=== PATIENT | female | born 1970 | race American Indian/Alaskan Native ===

== ENCOUNTER 2016-11-07 12:50 | Outpatient (CLI) | payer BC ==
--- NOTE | 2016-11-07 13:24 | Mammography Report ---
Bilateral mammogram: No previous studies available. CAD study and Findings: Heterogeneous breast parenchyma bilaterally. No mass or microcalcification. Benign axillary nodes. Impression: Benign findings. Followup recommended. BI-RADS CATEGORY: 2 = Benign ACR BI-RADS MAMMOGRAPHIC CODES: 0 = Needs additional imaging evaluation; 1 = Negative; 2 = Benign; 3 = Probably benign; 4 = Suspicious; 5 = Malignant; 6 = Known biopsy-proven malignancy COMMENT: 1. Dense breast tissue, i.e., adenosis, fibrocystic changes, etc., may obscure an underlying neoplasm. 2. Approximately 10% of cancers are not detected with mammography. 3. A negative mammography report should not delay biopsy if a clinically suspicious mass is present. COMMENT: Patient follow-up letters are generated in [employer].
== END 2016-11-07 12:51 | disposition home or self-care (01) ==
LOC: SPVWC 12:50
PROVIDERS: ATTEND Obstetrics & Gynecology
DX: Z12.31 Encounter for screening mammogram for malignant neoplasm of breast (principal)
CPT/HCPCS: 77067; G0202

== ENCOUNTER 2017-11-25 14:39 | Outpatient (CLI) | payer BC ==
--- NOTE | 2017-11-26 08:32 | Mammography Report ---
BILATERAL MAMMOGRAM: FINDINGS: The breast tissue is heterogeneously dense, which could obscure detection of small masses (approximately 50%-75% glandular). No mass, distortion, suspicious calcification, or skin change is seen. No interval change when compared to prior exam in November 2016. CAD was utilized. IMPRESSION: Negative mammogram. There is no mammographic evidence of malignancy. RECOMMENDATION: Follow-up per ACS guidelines. BI-RADS CATEGORY: 1 = Negative ACR BI-RADS MAMMOGRAPHIC CODES: 0 = Needs additional imaging evaluation; 1 = Negative; 2 = Benign; 3 = Probably benign; 4 = Suspicious; 5 = Malignant; 6 = Known biopsy-proven malignancy COMMENT: 1. Dense breast tissue, i.e., adenosis, fibrocystic changes, etc., may obscure an underlying neoplasm. 2. Approximately 10% of cancers are not detected with mammography. 3. A negative mammography report should not delay biopsy if a clinically suspicious mass is present. COMMENT: Patient follow-up letters are generated in [employer].
--- NOTE | 2017-11-26 09:36 | Ultrasound Report ---
Pelvic ultrasound: Dysfunctional uterine bleeding. Endovaginal and transabdominal imaging is performed. Uterus measures 5.7 x 8.2 x 9.4 cm. It is diffusely inhomogeneous and contains for identifiable masses in the mid and superior portions of the myometrium measuring between 2 cm and 3.8 cm in maximum size. A short segment of endometrium is identified in the superior uterus measuring 6 mm in diameter. The right ovary has a maximum dimension of 4 cm and contains a 2.9 cm cyst. The left ovary has a maximum dimension of 6.4 cm and contains a 4.9 cm cyst. No free fluid identified. Impressions: Enlarged uterus with multiple fibroids. The positioning of the fibroids relative to the suboptimally visualized endometrium are not identified. Bilateral ovarian cysts.
== END 2017-11-25 14:40 | disposition home or self-care (01) ==
LOC: SPVWC 14:39
PROVIDERS: ATTEND Obstetrics & Gynecology
DX: Z12.31 Encounter for screening mammogram for malignant neoplasm of breast (principal); N93.8 Other specified abnormal uterine and vaginal bleeding; N83.201 Unspecified ovarian cyst, right side; N85.2 Hypertrophy of uterus; D25.9 Leiomyoma of uterus, unspecified; N83.202 Unspecified ovarian cyst, left side
CPT/HCPCS: 76830; 76856; 77067

== ENCOUNTER 2018-01-14 12:54 | Outpatient (CLI) | payer BC ==
--- NOTE | 2018-01-14 14:42 | Ultrasound Report ---
TRANSABDOMINAL AND TRANSVAGINAL PELVIC ULTRASOUND: 01/14/18 12:54:00 CLINICAL: Dysfunctional uterine bleeding. FINDINGS: Transabdominal and transvaginal pelvic ultrasound demonstrated an enlarged uterus measuring 9.7 x 5.5 x 6.5 cm. Too numerous to count these fibroids. The dominant fibroid is located anterior intramural in the uterine fundus and measures 3.8 x 3.3 x 4.1 cm. A posterior fundal intramural fibroid measures 2.0 x 1.3 x 2.2 cm. A posterior intramural uterine body fibroid measures 2.2 x 1.9 x 1.9 cm. A lower uterine segment posterior intramural fibroid measures 2.8 x 2.3 x 1.9 cm.The endometrium is normal and measures 2 mm AP thickness. A cyst of the right ovary measures 1.9 x 1.9 x 1.5 cm. The right ovary measures 3.3 x 2.2 x 3.0cm. A cyst of the left ovary measures 4.3 x 3.3 x 3.7 cm. The left ovary measures 5.2 x 3.8 x 4.0 cm. No adnexal mass. No free fluid. Normal urinary bladder. IMPRESSION: 1. Uterine leiomyomata with a dominant 4.1 cm anterior fundal fibroid. 2. Normal endometrium. 3. Bilateral ovarian cysts.
== END 2018-01-14 12:55 | disposition home or self-care (01) ==
LOC: SPVWC 12:54
PROVIDERS: ATTEND Obstetrics & Gynecology
DX: N83.292 Other ovarian cyst, left side (principal); N83.291 Other ovarian cyst, right side; D25.9 Leiomyoma of uterus, unspecified
CPT/HCPCS: 76830; 76856

== ENCOUNTER 2018-08-12 06:28 | Emergency (ER) | payer BC ==
[2018-08-12] MEDS ORDERED: NACL 0.9% 1000 ML 1,000 ML IV ONE (07:12)
[2018-08-12] MEDS ORDERED: IMODIUM PO ONE (07:12)
[2018-08-12] MEDS ORDERED: TORADOL IV ONE (07:12)
[2018-08-12] MEDS ORDERED: ZOFRAN IV ONE (07:12)
--- NOTE | 2018-08-12 07:29 | Emergency Department Report ---
ED Abdominal Pain HPI - General Chief Complaint: Abdominal Pain Stated Complaint: NVD BACK PELVIC PAIN Time Seen by Provider: 08/12/18 06:56 Source: patient Mode of arrival: Ambulatory Limitations: No Limitations - History of Present Illness Initial Comments: 47-year-old female presents to ED with pelvic pain, nausea, vomiting, diarrhea 2 days. Patient states she is currently on her menstrual period, states amount of bleeding is normal, no heavier than usual. However, reports associated vomitng and diarrhea, slightly worse cramping. Patient does report history of uterine fibroids and ovarian cysts. Patient denies fever, urinary symptoms, sick contacts. MD Complaint: abdominal pain -: days(s) (3) Location: suprapubic Radiation: back Migration to: no migration Severity: severe Severity scale (0 -10): 10 Quality: cramping, aching Improves With: nothing Worsens With: nothing Associated Symptoms: nausea, vomiting, diarrhea. denies: fever, dysuria - Related Data LMP (females 10-50): this week Previous Rx's Medication Instructions Recorded Last Taken Type Naproxen [Naprosyn] 500 mg PO BID #20 tablet 08/12/18 Unknown Rx Ondansetron [Zofran Odt] 4 mg PO Q8HR PRN #20 tab.rapdis 08/12/18 Unknown Rx Sulfamethoxazole/Trimethoprim 1 each PO BID 10 Days #6 tablet 08/12/18 Unknown Rx [Bactrim DS TAB] traMADol [Ultram] 50 mg PO Q6HR PRN #7 tablet 08/12/18 Unknown Rx Allergies Allergy/AdvReac Type Severity Reaction Status Date / Time fluconazole Allergy Rash Verified 08/12/18 06:34 ED Review of Systems ROS: Stated complaint: NVD BACK PELVIC PAIN Other details as noted in HPI Comment: All other systems reviewed and negative Constitutional: denies: chills, fever Gastrointestinal: abdominal pain, nausea, vomiting, diarrhea Genitourinary: other (reports vag bleeding) ED Past Medical Hx - Past Medical History Previous Medical History?: Yes - Surgical History Past Surgical History?: Yes Additional Surgical History: fibroid, ovaries cyst, pilonidal remove - Social History Smoking Status: Never Smoker Substance Use Type: None - Medications Home Medications: Home Medications Medication Instructions Recorded Confirmed Last Taken Type Naproxen [Naprosyn] 500 mg PO BID #20 tablet 08/12/18 Unknown Rx Ondansetron [Zofran Odt] 4 mg PO Q8HR PRN #20 tab.rapdis 08/12/18 Unknown Rx Sulfamethoxazole/Trimethoprim 1 each PO BID 10 Days #6 tablet 08/12/18 Unknown Rx [Bactrim DS TAB] traMADol [Ultram] 50 mg PO Q6HR PRN #7 tablet 08/12/18 Unknown Rx ED Physical Exam - General Limitations: No Limitations General appearance: alert, other (appears uncomfortable) - Head Head exam: Present: atraumatic, normocephalic - Eye Eye exam: Present: normal appearance - ENT ENT exam: Present: mucous membranes moist - Neck Neck exam: Present: normal inspection - Respiratory Respiratory exam: Present: normal lung sounds bilaterally. Absent: respiratory distress - Cardiovascular Cardiovascular Exam: Present: normal rhythm, tachycardia - GI/Abdominal GI/Abdominal exam: Present: soft, tenderness (moderate suprapubic). Absent: distended - Extremities Exam Extremities exam: Present: normal inspection - Back Exam Back exam: Absent: CVA tenderness (R), CVA tenderness (L) - Neurological Exam Neurological exam: Present: alert, oriented X3 - Psychiatric Psychiatric exam: Present: normal affect, normal mood - Skin Skin exam: Present: warm, dry, intact, normal color ED Course Vital Signs 08/12/18 08/12/18 08/12/18 06:36 07:20 08:00 Temperature 98.6 F Pulse Rate 111 H Respiratory 20 Rate Blood Pressure 126/75 114/64 O2 Sat by Pulse 97 99 96 Oximetry 08/12/18 09:07 Temperature Pulse Rate Respiratory Rate Blood Pressure 114/69 O2 Sat by Pulse 100 Oximetry ED Medical Decision Making - Lab Data Result diagrams: 08/12/18 07:35 08/12/18 07:35 - Radiology Data Radiology results: report reviewed, image reviewed - Medical Decision Making 27-year-old female, currently on her period, with nausea, vomiting, diarrhea. Patient reports previous history of ovarian cysts, currently reporting abdominal and lower back pain. WBC is elevated, patient slightly tachycardic on arrival. IV fluids given, Toradol, Zofran. Patient states she is feeling much better at this time. CT shows bilateral ovarian cysts, otherwise normal. Patient reports that her bleeding is not heavier than her usual periods. Symptoms likely due to gastroenteritis as patient has reported vomiting and diarrhea. Mild UTI by UA, will treat with Bactrim. Return precautions given. Outpatient follow-up advised. - Differential Diagnosis gastroenteritis, ovarian cysts, UTI, appendictiis Critical care attestation.: If time is entered above; I have spent that time in minutes in the direct care of this critically ill patient, excluding procedure time. ED Disposition Clinical Impression: Gastroenteritis, UTI (urinary tract infection), Ovarian cyst Disposition: TO HOME OR SELFCARE Is pt being admited?: No Condition: Stable Instructions: Ovarian Cyst (ED), Urinary Tract Infection in Women (ED), Gastroenteritis (ED) Prescriptions: Sulfamethoxazole/Trimethoprim [Bactrim DS TAB] 1 each PO BID 10 Days #6 tablet Naproxen [Naprosyn] 500 mg PO BID #20 tablet traMADol [Ultram] 50 mg PO Q6HR PRN #7 tablet PRN Reason: Pain Ondansetron [Zofran Odt] 4 mg PO Q8HR PRN #20 tab.rapdis PRN Reason: Vomiting Referrals: LUH CHANEY MD [Primary Care Provider] - 3-5 Days CELESTE SHEPARD MD [Staff Physician] - 3-5 Days Time of Disposition: 09:39
[2018-08-12 07:45] LABS: Basophils % (Auto) 0.2 % (0.0-1.8); Eosinophils % (Auto) 0.1 % (0.0-4.3); Hematocrit 31.5 % (30.3-42.9); Hemoglobin 10.4 gm/dl (10.1-14.3); Lymphocytes # (Auto) 1.1 K/mm3 (1.2-5.4); Lymphocytes % (Auto) 6.3 % (13.4-35.0); Mean Corpuscular HGB Conc 33 % (30-34); Mean Corpuscular Volume 83 fl (79-97); Monocytes % (Auto) 11.4 % (0.0-7.3); Platelet Count 288 K/mm3 (140-440); Red Blood Count 3.79 M/mm3 (3.65-5.03); Red Cell Distribution Width 15.1 % (13.2-15.2)
[2018-08-12 08:08] LABS: Albumin 3.6 g/dL (3.9-5); BUN/Creatinine Ratio 6; Blood Urea Nitrogen 3 mg/dL (7-17); Calcium 9.5 mg/dL (8.4-10.2); Hemolysis Index 100
[2018-08-12 08:11] LABS: Alanine Aminotransferase 8 units/L (7-56)
--- NOTE | 2018-08-12 08:52 | Cat Scan Report ---
CT ABDOMEN PELVIS WITH CONTRAST: HISTORY: abdominal pain. COMPARISON: Pelvic ultrasound dated 04/09/18. TECHNIQUE: Helical CT in 1.25mm intervals following IV contrast. Sagittal and coronal reconstructions. FINDINGS: Lung bases: Normal. Liver: Normal. Biliary system: Normal. Pancreas: Normal. Spleen: Normal. Kidneys/ureters/bladder: Normal. Adrenal glands: Normal. Aorta: Normal. Intestines: Within normal limits given no oral contrast was administered. Appendix: Not confidently identified, correlate with surgical history. Pelvic viscera: Multiple hypoechoic uterine masses are identified ranging from 1-4 cm in diameter which presumably represent uterine fibroids. There is a large cyst in the left adnexa measuring 6.5 x 6.6 cm. This presumably represents a large ovarian cyst. There is also a 3.8 x 1.8 cm cyst in the right adnexa. Ascites: None. Adenopathy: None. Musculoskeletal: Normal. IMPRESSION: Uterine fibroid disease. Bilateral adnexal cysts which presumably represent ovarian cysts. Please correlate with the clinical presentation of the patient.
[2018-08-12 09:12] VITALS: BP 114/69
[2018-08-12 09:21] LABS: Bilirubin,Urine NEG (Negative); Blood,Urine LG (Negative); Color,Urine Yellow (Yellow); Mucus,Urine FEW /HPF; Protein,Urine <15 mg/dL mg/dL (Negative); Urobilinogen,Urine < 2.0 mg/dL (<2.0)
== END 2018-08-12 10:11 | disposition home or self-care (01) ==
LOC: ED 06:28
DX: K52.9 Noninfective gastroenteritis and colitis, unspecified (principal); N39.0 Urinary tract infection, site not specified; N83.209 Unspecified ovarian cyst, unspecified side; Z88.6 Allergy status to analgesic agent; Z88.1 Allergy status to other antibiotic agents
CPT/HCPCS: 36415; 74177; 80053; 81001; 84703; 85025; 96361; 96374; 96375; 99284; J1885; J2405; J7030; Q9967

== ENCOUNTER 2018-08-15 19:49 | Inpatient (IN) | payer BC ==
[2018-08-15] MEDS ORDERED: NACL 0.9% 1000 ML 1,000 ML IV ONE ×2 (20:01→21:00)
[2018-08-15 20:27] LABS: Bilirubin,Urine NEG (Negative); Blood,Urine NEG (Negative); Color,Urine Yellow (Yellow); Mucus,Urine FEW /HPF; Protein,Urine <15 mg/dL mg/dL (Negative); Urobilinogen,Urine < 2.0 mg/dL (<2.0)
[2018-08-15 20:30] LABS: Hematocrit 30.6 % (30.3-42.9); Mean Corpuscular HGB Conc 33 % (30-34); Mean Corpuscular Volume 83 fl (79-97); Platelet Count 367 K/mm3 (140-440); Red Blood Count 3.67 M/mm3 (3.65-5.03); Red Cell Distribution Width 15.4 % (13.2-15.2)
[2018-08-15 20:45] LABS: Albumin 3.4 g/dL (3.9-5)
[2018-08-15 21:00] LABS: Alanine Aminotransferase 11 units/L (7-56); BUN/Creatinine Ratio 7; Blood Urea Nitrogen 4 mg/dL (7-17); Calcium 9.1 mg/dL (8.4-10.2); Hemolysis Index 0
[2018-08-15] MEDS ORDERED: FLAGYL 500 MG/100 ML 500 MG/100 ML BAG IV ONE (21:00)
--- NOTE | 2018-08-15 21:06 | Emergency Department Report ---
HPI - General Chief Complaint: Back Pain/Injury Time Seen by Provider: 08/15/18 20:57 - HPI HPI: This is a 47-year-old -[place] female who presents to ED with nausea, abdominal discomfort, suprapubic pain, low-grade fever, for 5 days worse today. Patient was initially seen in ED on August 12, prescribed Bactrim, Naprosyn, tramadol, Zofran, which she has taken, but noticed that symptoms have been worsening. Patient reports previous history of ovarian cysts, hemorrhoids. Patient also complaining of some rectal pain. ED Past Medical Hx - Past Medical History Previous Medical History?: No - Surgical History Past Surgical History?: Yes Additional Surgical History: fibroid, ovaries cyst, pilonidal remove - Social History Smoking Status: Never Smoker Substance Use Type: None - Medications Home Medications: Home Medications Medication Instructions Recorded Confirmed Last Taken Type Amoxicillin/K Clav Tab [Augmentin 1 each PO Q12HR #12 tablet 08/25/18 Unknown Rx 875MG TAB] HYDROcodone/ACETAMINOPHEN 1 each PO Q6HR #18 tablet 08/25/18 Unknown Rx [Hydrocodone-Acetamin 5-325 mg] Hydrocortisone 2.5% [Proctosol-Hc] 1 applic MA BID #60 tube 08/25/18 Unknown Rx Lidocaine Topical 2% 5Ml 1 applic TP Q2H PRN tube 08/25/18 Unknown Rx [Xylocaine Topical 2% 5Ml] Ondansetron (Nf) [Zofran TAB] 8 mg PO Q8HR PRN #30 tablet 08/25/18 Unknown Rx Polyethylene Glycol 3350 [Miralax 17 gm PO QDAY #30 powd.pack 08/25/18 Unknown Rx 3350] Sennosides/Docusate [Senokot S] 1 tab PO QHS #30 tablet 08/25/18 Unknown Rx ED Review of Systems ROS: Stated complaint: NAUSEA/UNABLE TO EAT/BACKPAIN/RECTAL PAIN Other details as noted in HPI Comment: All other systems reviewed and negative Constitutional: fever. denies: chills Eyes: denies: eye pain, eye discharge, vision change ENT: denies: ear pain, throat pain Respiratory: denies: cough, shortness of breath, wheezing Cardiovascular: denies: chest pain, palpitations Endocrine: no symptoms reported Gastrointestinal: abdominal pain, nausea, vomiting. denies: diarrhea Genitourinary: dysuria. denies: urgency, discharge Musculoskeletal: back pain. denies: joint swelling, arthralgia Skin: denies: rash, lesions Neurological: denies: headache, weakness, paresthesias Psychiatric: denies: anxiety, depression Hematological/Lymphatic: denies: easy bleeding, easy bruising Physical Exam - Physical Exam Vital Signs: Vital Signs 08/15/18 08/15/18 08/15/18 19:55 20:21 20:30 Temperature 99 F 98.2 F Pulse Rate 106 H 102 H 102 H Respiratory 20 18 11 L Rate Blood Pressure 127/72 112/72 Blood Pressure 112/72 [Left] O2 Sat by Pulse 97 100 99 Oximetry 08/15/18 20:46 Temperature Pulse Rate 95 H Respiratory 12 Rate Blood Pressure 112/72 Blood Pressure [Left] O2 Sat by Pulse 100 Oximetry Physical Exam: - General Limitations: No Limitations General appearance: alert, in no apparent distress, obese - Head Head exam: Present: atraumatic, normocephalic - Eye Eye exam: Present: normal appearance - ENT ENT exam: Present: mucous membranes moist - Neck Neck exam: Present: normal inspection - Respiratory Respiratory exam: Present: normal lung sounds bilaterally. Absent: respiratory distress - Cardiovascular Cardiovascular Exam: Present: normal rhythm, tachycardia. Absent: systolic murmur, diastolic murmur, rubs, gallop - GI/Abdominal GI/Abdominal exam: Present: soft, normal bowel sounds, rectal exam showed quarter size hemorrhoid at 9:00- Extremities Exam Extremities exam: Present: normal inspection - Back Exam Back exam: Present: normal inspection - Neurological Exam Neurological exam: Present: alert, oriented X3 - Psychiatric Psychiatric exam: normal affect and mood - Skin Skin exam: Present: warm, dry, intact, normal color. Absent: rash ED Course Vital Signs 08/15/18 08/15/18 08/15/18 19:55 20:21 20:30 Temperature 99 F 98.2 F Pulse Rate 106 H 102 H 102 H Respiratory 20 18 11 L Rate Blood Pressure 127/72 112/72 Blood Pressure 112/72 [Left] O2 Sat by Pulse 97 100 99 Oximetry 08/15/18 20:46 Temperature Pulse Rate 95 H Respiratory 12 Rate Blood Pressure 112/72 Blood Pressure [Left] O2 Sat by Pulse 100 Oximetry - Reevaluation(s) Reevaluation #1: 08/15/18 23:01 Reexamined, rectal exam done showed thick quarter size external hemorrhoid at 9:00. Lidocaine 2% jelly applied. Awaiting ultrasound results. ED Medical Decision Making - Lab Data Result diagrams: 08/24/18 05:31 08/24/18 05:31 Critical care attestation.: If time is entered above; I have spent that time in minutes in the direct care of this critically ill patient, excluding procedure time. ED Disposition Clinical Impression: Tubo-ovarian abscess Disposition: OP ADMIT IP TO THIS HOSP Is pt being admited?: Yes Does the pt Need Aspirin: No Condition: Stable
[2018-08-15 21:29] LABS: Band Neutrophils # (Manual) 3.2 K/mm3; Basophils % (Manual) 0 % (0.0-1.8); Total Cells Counted 100
[2018-08-15 21:30] LABS: Burr Cells 3+; Ovalocytes 2+; Poikilocytosis 3+
[2018-08-15 21:31] LABS: Anisocytosis 1+; Giant Platelets Few; Hypochromasia 1+; Platelet Estimate Consistent w Auto; Schistocytes 1+
[2018-08-15] MEDS ORDERED: XYLOCAINE 2% UROJET UR ONE (21:38)
[2018-08-15] MEDS ORDERED: TORADOL IV ONE (21:39)
[2018-08-15] MEDS ORDERED: XYLOCAINE TOPICAL 2% 5ML ONE (21:42)
[2018-08-15 21:48] LABS: HCG Qualitative,Urine Negative (Negative)
[2018-08-15] MEDS ORDERED: ROCEPHIN/NS 2 GM/100 ML 2 GM/100 ML BAG IV ONE (22:00)
[2018-08-15] MEDS ORDERED: MORPHINE IV ONE (22:02)
[2018-08-15] MEDS ORDERED: BENADRYL IV ONE (22:02)
[2018-08-15] MEDS ORDERED: NACL 0.9% 1000 ML IV ONE (22:03)
--- NOTE | 2018-08-15 23:58 | Ultrasound Report ---
PROCEDURE: US TRANSVAGINAL TECHNIQUE: Real-time transvaginal sonography in multiple planes of the pelvis was performed with marie ge documentation. Grayscale, color flow Doppler imaging and velocity spectral waveform analysis of th e ovaries was employed (duplex imaging). HISTORY: concern for tubo-ovarian abscess COMPARISONS: None FINDINGS: UTERUS Size: 12.4 x 5.5 x 7.6 cm. Endometrial thickness: 13.3 mm. Orientation: anteverted. Cervix: Normal. Fibroids/masses: There are fibroids. There is a fibroid in the anterior body measuring 3.2 cm. There is a fibroid in the posterior body measuring 1.8 cm.. RIGHT Ovary: 3.1 x 1.6 x 2.3 cm. Appearance: There is right adnexal mass measuring 5.6 cm. This could be a hemorrhagic ovarian cyst or endometrioma.. Doppler images: Normal spectral waveforms and color flow images of the arterial inflow and venous out flow.. LEFT Ovary: Left ovary is not seen. Pelvic fluid: None. IMPRESSION: 2 uterine fibroids are identified. There is right adnexal mass measuring 5.6 cm. This could be a hemorrhagic ovarian cyst or endometriom a.. There is no ovarian torsion. The left ovary is not seen. There is no free fluid. This document is electronically signed by Bowen Hall MD., August 15 2018 11:55:39 PM ET
--- NOTE | 2018-08-16 00:06 | Ultrasound Report ---
PROCEDURE: US PELVIC COMPLETE TECHNIQUE: Real-time transabdominal sonography in multiple planes of the pelvis was performed with i mage documentation. Grayscale, color flow Doppler imaging and velocity spectral waveform analysis of the ovaries was employed (duplex imaging). HISTORY: suspect tubo-ovarian abscess COMPARISONS: None FINDINGS: UTERUS Size: 12.4 x 5.5 x 7.6 cm. Endometrial thickness: 13.3 mm. Orientation: anteverted. Cervix: Normal. Fibroids/masses: There are fibroids. There is a fibroid in the anterior body measuring 3.2 cm. There is a fibroid in the posterior body measuring 1.8 cm.. RIGHT Ovary: 3.1 x 1.6 x 2.3 cm. Appearance: There is right adnexal mass measuring 5.6 cm. This could be a hemorrhagic ovarian cyst or endometrioma.. Doppler images: Normal spectral waveforms and color flow images of the arterial inflow and venous out flow.. LEFT Ovary: Left ovary is not seen. Pelvic fluid: None. IMPRESSION: 2 uterine fibroids are identified. There is right adnexal mass measuring 5.6 cm. This could be a hemorrhagic ovarian cyst or endometriom a.. Tubo-ovarian abscess considered less likely but not excluded. Clinical correlation suggested. There is no ovarian torsion. The left ovary is not seen. There is no free fluid. This document is electronically signed by Bowen Hall MD., August 16 2018 12:03:55 AM ET
[2018-08-16] MEDS ORDERED: SODIUM CHLORIDE FLUSH SYRINGE 10 ML IV PRN (01:30)
--- NOTE | 2018-08-16 01:32 | History and Physical Report ---
History of Present Illness Date of examination: 08/16/18 History of present illness: 47-year-old woman with history of fibroids comes emergency room on 08/12 and was diagnosed with gastroenteritis and urinary tract infection, discharged on Bactrim. She returned to the emergency room today with complaints of fever, persistent nausea, increased pain in her pelvic area and left side pain. Also complaining of a pressure in her rectum Review of systems Constitutional: no weight loss, chills Ears, eyes, nose, mouth and throat: no nasal congestion, no nasal discharge, no sinus pressure, no vision change, no red eye. Neck: No neck pain or rigidity. Cardiovascular: no palpitations, chest pain Respiratory: no cough, shortness of breath Gastrointestinal: no hematochezia, abdominal pain Genitourinary : no frequency , no hematuria Musculoskeletal: no joint swelling or muscle ache Integumentary: no rash, no pruritis Neurological: no parathesias, no focal weakness Endocrine: no cold or heat intolerance, no polyuria or polydipsia Hematologic/Lymphatic: no easy bruising, no easy bleeding, no gland swelling Allergic/Immunologic: no urticaria, no angioedema. PAST MEDICAL HISTORY: fibroids PAST SURGICAL HISTORY: Myomectomy, cyst removed from ovary, pilonidal cyst excision SOCIAL HISTORY: Denies alcohol, drugs, tobacco FAMILY HISTORY: Hypertension Medications and Allergies Allergies Allergy/AdvReac Type Severity Reaction Status Date / Time fluconazole Allergy Rash Verified 08/12/18 06:34 tramadol AdvReac Headache Verified 08/15/18 19:50 Home Medications Medication Instructions Recorded Confirmed Last Taken Type Amoxicillin/K Clav Tab [Augmentin 1 each PO Q12HR #12 tablet 08/25/18 Unknown Rx 875MG TAB] HYDROcodone/ACETAMINOPHEN 1 each PO Q6HR #18 tablet 08/25/18 Unknown Rx [Hydrocodone-Acetamin 5-325 mg] Hydrocortisone 2.5% [Proctosol-Hc] 1 applic SC BID #60 tube 08/25/18 Unknown Rx Lidocaine Topical 2% 5Ml 1 applic TP Q2H PRN tube 08/25/18 Unknown Rx [Xylocaine Topical 2% 5Ml] Ondansetron (Nf) [Zofran TAB] 8 mg PO Q8HR PRN #30 tablet 08/25/18 Unknown Rx Polyethylene Glycol 3350 [Miralax 17 gm PO QDAY #30 powd.pack 08/25/18 Unknown Rx 3350] Sennosides/Docusate [Senokot S] 1 tab PO QHS #30 tablet 08/25/18 Unknown Rx Exam - Physical Exam Narrative exam: General Apperance: The patient lying in bed, breathing comfortable HEENT: Normocephalic, atraumatic. Pupils equally round and reactive to light, EOMI, no sclericterus or JVD or thyromegaly or nodule. , no carotid bruit, mucous membranes moist, no exudate or erythema Heart: S1-S2, regular is rhythm Lungs: Clear to auscultation bilaterally, breathing comfortable Abdomen: Positive bowel sounds, soft, nontender, nondistended, no organomegaly Extremities: No edema cyanosis clubbing Skin: no rash, nodule, warm and dry Neuro: cranial nerves 2-12 intact, speech is fluent, motor/sensory intact - Constitutional Vitals: Temp Pulse Resp BP Pulse Ox 98.2 F 88 13 106/53 99 08/15/18 20:21 08/16/18 01:00 08/16/18 01:00 08/16/18 01:00 08/16/18 01:00 Results - Labs CBC & Chem 7: 08/24/18 05:31 08/24/18 05:31 Labs: Abnormal lab results 08/15/18 08/15/18 08/15/18 Range/Units 20:20 20:20 Unknown WBC 21.2 H (4.5-11.0) K/mm3 Hgb 10.0 L (10.1-14.3) gm/dl MCH 27 L (28-32) pg RDW 15.4 H (13.2-15.2) % Seg Neuts % (Manual) 75.0 H (40.0-70.0) % Lymphocytes % (Manual) 2.0 L (13.4-35.0) % Seg Neutrophils # Man 15.9 H (1.8-7.7) K/mm3 Lymphocytes # (Manual) 0.4 L (1.2-5.4) K/mm3 Monocytes # (Manual) 1.5 H (0.0-0.8) K/mm3 Chloride 97.9 L (98-107) mmol/L BUN 4 L (7-17) mg/dL Creatinine 0.6 L (0.7-1.2) mg/dL Glucose 113 H (65-100) mg/dL Albumin 3.4 L (3.9-5) g/dL Urine WBC (Auto) 17.0 H (0.0-6.0) /HPF Assessment and Plan Pelvic and transvaginal ultrasound reviewed Assessment Urinary tract infection Plan Start IV fluids, IV Rocephin, follow cultures IV morphine, DVT prophylaxis
[2018-08-16] MEDS: MORPHINE IV PRN ×4 (02:21→21:52)
[2018-08-16] MEDS: NACL 0.9% 1000 ML 1,000 ML IV SCH ×4 (02:45→22:29)
[2018-08-16] MEDS ORDERED: TORADOL IV ONE (04:44)
[2018-08-16 06:13] LABS: Hematocrit 28.3 % (30.3-42.9); Hemoglobin 9.1 gm/dl (10.1-14.3); Mean Corpuscular HGB Conc 32 % (30-34); Mean Corpuscular Volume 85 fl (79-97); Red Blood Count 3.32 M/mm3 (3.65-5.03); Red Cell Distribution Width 15.9 % (13.2-15.2)
[2018-08-16 06:28] LABS: BUN/Creatinine Ratio 7; Blood Urea Nitrogen 4 mg/dL (7-17); Calcium 8.1 mg/dL (8.4-10.2); Hemolysis Index 43
[2018-08-16] MEDS: LOVENOX SUB-Q SCH (09:08)
[2018-08-16] MEDS: SODIUM CHLORIDE FLUSH SYRINGE 10 ML IV SCH ×2 (09:12→21:59)
[2018-08-16 10:04] LABS: Band Neutrophils # (Manual) 0.9 K/mm3; Basophils % (Manual) 0 % (0.0-1.8); Eosinophils % (Manual) 0 % (0.0-4.3); Large Platelets Rare; Platelet Estimate Consistent w Auto; RBC Morphology Normal; Total Cells Counted 100
[2018-08-16 10:05] LABS: Platelet Count 365 K/mm3 (140-440)
--- NOTE | 2018-08-16 10:20 | Event Note ---
Date: 08/16/18 This is a follow-up from an admission earlier this morning. Patient seen and examined. We will continue the plan as outlined in H&P. Total time is greater than 25 minutes with greater than 50% spent in coordination of care and counseling.
[2018-08-16] MEDS: TYLENOL PO PRN (12:02)
[2018-08-16] MEDS: ZOFRAN IV PRN (12:49)
[2018-08-16] MEDS: TORADOL IV PRN ×2 (13:27→19:53)
[2018-08-16] MEDS: MYLICON PO PRN ×2 (13:33→19:53)
[2018-08-16] MEDS ORDERED: ROCEPHIN/NS 1 GM/50 ML 1 GM/50 ML BAG IV ONE (15:00)
[2018-08-16] MEDS: PEPCID IV SCH (21:48)
[2018-08-16] MEDS: SENOKOT S PO SCH (21:48)
[2018-08-17] MEDS ORDERED: MYLICON PO ONE (02:00)
[2018-08-17] MEDS: MORPHINE IV PRN ×3 (02:10→17:12)
[2018-08-17] MEDS: TYLENOL PO PRN (02:15)
[2018-08-17] MEDS: TORADOL IV PRN ×3 (06:14→23:49)
[2018-08-17 07:00] LABS: BUN/Creatinine Ratio 6; Blood Urea Nitrogen 3 mg/dL (7-17); Hemolysis Index 3
[2018-08-17 07:05] LABS: Calcium 7.6 mg/dL (8.4-10.2)
[2018-08-17 07:11] LABS: Hematocrit 26.8 % (30.3-42.9); Hemoglobin 8.6 gm/dl (10.1-14.3); Mean Corpuscular HGB Conc 32 % (30-34); Mean Corpuscular Volume 82 fl (79-97); Platelet Count 353 K/mm3 (140-440); Red Blood Count 3.28 M/mm3 (3.65-5.03); Red Cell Distribution Width 15.6 % (13.2-15.2)
[2018-08-17 08:01] LABS: Band Neutrophils # (Manual) 3.3 K/mm3; Basophils % (Manual) 0 % (0.0-1.8); Eosinophils % (Manual) 0 % (0.0-4.3); Hypochromasia Few; Ovalocytes 1+; Total Cells Counted 100
[2018-08-17 08:02] LABS: Anisocytosis 1+; Burr Cells Few; Giant Platelets Few
[2018-08-17] MEDS: NACL 0.9% 1000 ML 1,000 ML IV SCH ×2 (09:31→21:58)
[2018-08-17] MEDS: PEPCID IV SCH ×2 (09:32→21:25)
[2018-08-17] MEDS: LOVENOX SUB-Q SCH (09:32)
[2018-08-17] MEDS: SODIUM CHLORIDE FLUSH SYRINGE 10 ML IV SCH ×2 (09:32→21:27)
[2018-08-17] MEDS ORDERED: ROCEPHIN/NS 1 GM/50 ML 1 GM/50 ML BAG IV SCH (10:00)
[2018-08-17] MEDS: COLACE PO SCH ×2 (12:28→23:52)
[2018-08-17] MEDS: ZOFRAN IV PRN ×3 (12:29→23:50)
--- NOTE | 2018-08-17 13:08 | History and Physical Report ---
History of Present Illness Date of examination: 08/17/18 Date of admission: 08/16/18 03:14 Chief complaint: pelvic pain referral to exploration engineer for ovarian cyst History of present illness: 47-year-old history of fibroids comes emergency room on 08/12 and was diagnosed with gastroenteritis and urinary tract infection, discharged on Bactrim. She returned to the emergency room today with complaints of fever, persistent nausea, increased pain in her pelvic area and left side pain. 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 denies: smoking, alcohol abuse, prescription drug abuse Medications and Allergies Allergies Allergy/AdvReac Type Severity Reaction Status Date / Time fluconazole Allergy Rash Verified 08/12/18 06:34 tramadol AdvReac Headache Verified 08/15/18 19:50 Home Medications Medication Instructions Recorded Confirmed Last Taken Type Sulfamethoxazole/Trimethoprim 1 each PO BID 10 Days #6 tablet 08/12/18 08/15/18 Unknown Rx [Bactrim DS TAB] traMADol [Ultram] 50 mg PO Q6HR PRN #7 tablet 08/12/18 08/15/18 Unknown Rx Active Meds: Active Medications Acetaminophen (Tylenol) 650 mg PO Q4H PRN PRN Reason: Pain MILD(1-3)/Fever >100.5/SARKAR Last Admin: 08/17/18 02:15 Dose: 650 mg Documented by: Docusate Sodium (Colace) 100 mg PO BID [facility] Last Admin: 08/17/18 12:28 Dose: 100 mg Documented by: Famotidine (Pepcid) 20 mg IV BID [facility] Last Admin: 08/17/18 09:32 Dose: 20 mg Documented by: Sodium Chloride (Nacl 0.9% 1000 Ml) 1,000 mls @ 100 mls/hr IV DIRECT [facility] Last Admin: 08/17/18 09:31 Dose: 150 mls/hr Documented by: Ceftriaxone Sodium (Rocephin/Ns 1 Gm/50 Ml) 1 gm in 50 mls @ 100 mls/hr IV Q24HR [facility]; Protocol Last Admin: 08/17/18 09:31 Dose: 100 mls/hr Documented by: Ketorolac Tromethamine (Toradol) 30 mg IV Q8H PRN PRN Reason: Pain, Moderate (4-6) Stop: 08/21/18 13:06 Last Admin: 08/17/18 06:14 Dose: 30 mg Documented by: Metoclopramide HCl (Reglan) 10 mg IV Q6H PRN PRN Reason: Nausea And Vomiting Morphine Sulfate (Morphine) 2 mg IV Q4H PRN PRN Reason: Pain, Moderate (4-6) Last Admin: 08/17/18 12:29 Dose: 2 mg Documented by: Ondansetron HCl (Zofran) 4 mg IV Q4H PRN PRN Reason: Nausea And Vomiting Last Admin: 08/17/18 12:29 Dose: 4 mg Documented by: Senna/Docusate Sodium (Senokot S) 1 tab PO QHS [facility] Last Admin: 08/16/18 21:48 Dose: 1 tab Documented by: Simethicone (Mylicon) 80 mg PO PC PRN PRN Reason: Gas pain Last Admin: 08/16/18 19:53 Dose: 80 mg Documented by: Sodium Chloride (Sodium Chloride Flush Syringe 10 Ml) 10 ml IV BID [facility] Last Admin: 08/17/18 09:32 Dose: 10 ml Documented by: Sodium Chloride (Sodium Chloride Flush Syringe 10 Ml) 10 ml IV PRN PRN PRN Reason: LINE FLUSH Review of Systems All systems: negative Gastrointestinal: abdominal pain - Vital Signs Vital signs: Vital Signs Temp Pulse Resp BP Pulse Ox 99 F 106 H 20 127/72 97 08/15/18 19:55 08/15/18 19:55 08/15/18 19:55 08/15/18 19:55 08/15/18 19:55 Temp Pulse Resp BP Pulse Ox 98.4 F 83 18 109/59 100 08/17/18 06:55 08/17/18 06:55 08/17/18 06:55 08/17/18 06:55 08/17/18 10:00 - Physical Exam Breasts: Positive: normal Cardiovascular: Regular rate, Normal S1 Lungs: Positive: Clear to auscultation, Normal air movement Abdomen: Positive: normal appearance, soft, normal bowel sounds, other (CVA tenderness ). Negative: distention, tenderness Genitourinary (Female): Positive: normal external genitalia, normal perenium Vagina: Positive: normal moisture Uterus: Positive: enlarged Extremities: Positive: normal Deep Tendon Reflex Grade: Normal +2 Results Result Diagrams: 08/17/18 05:38 08/17/18 05:38 Abnormal lab results 08/17/18 08/17/18 Range/Units 05:38 05:38 WBC 17.3 H (4.5-11.0) K/mm3 RBC 3.28 L (3.65-5.03) M/mm3 Hgb 8.6 L (10.1-14.3) gm/dl Hct 26.8 L (30.3-42.9) % MCH 26 L (28-32) pg RDW 15.6 H (13.2-15.2) % Monocytes % (Manual) 16.0 H (0.0-7.3) % Seg Neutrophils # Man 8.0 H (1.8-7.7) K/mm3 Monocytes # (Manual) 2.8 H (0.0-0.8) K/mm3 Potassium 3.4 L (3.6-5.0) mmol/L Carbon Dioxide 21 L (22-30) mmol/L BUN 3 L (7-17) mg/dL Creatinine 0.5 L (0.7-1.2) mg/dL Calcium 7.6 L (8.4-10.2) mg/dL All other labs normal. Ultrasound: report reviewed Assessment and Plan A/P Pelvic pain agree with mgt of UTI possible pyelo wbc trending down US shows fibroids and ovarian cyst continue pain meds consider scan of kidneys if not performed UA and urine culture may also consider ID for assistance will continue following when patient is discharged may f/u with primary OB Dr. Escoto
--- NOTE | 2018-08-17 14:51 | Gastroenterology Consultation ---
History of Present Illness - Reason for Consult Consult date: 08/17/18 thrombosed hemorrhoid Requesting physician: JOSE ENRIQUE OH - History of Present Illness Patient is a 47 y/o female who presented to ED with c/o nausea, suprapubic pain, fever, and rectal pain. Upon admission, she was found to have an UTI, fibroids and ovarian cyst on u/s ([employer] following), and a thrombosed hemorrhoid to which GI has been consulted. This afternoon patient was resting in bed in mild distress due to rectal pain. She reports noticing an abnormal rectal "lump" with wiping following a BM with associated pain that began last Thursday. Admits to a scant amount of rectal bleeding noted on TP only after BMs. Denies vomiting, hematemesis, melena, diarrhea, or constipation. No prior colonoscopy. 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 denies: smoking, alcohol abuse, prescription drug abuse Family history: hypertension Medications and Allergies Allergies Allergy/AdvReac Type Severity Reaction Status Date / Time fluconazole Allergy Rash Verified 08/12/18 06:34 tramadol AdvReac Headache Verified 08/15/18 19:50 Home Medications Medication Instructions Recorded Confirmed Last Taken Type Sulfamethoxazole/Trimethoprim 1 each PO BID 10 Days #6 tablet 08/12/18 08/15/18 Unknown Rx [Bactrim DS TAB] traMADol [Ultram] 50 mg PO Q6HR PRN #7 tablet 08/12/18 08/15/18 Unknown Rx Active Meds: Active Medications Acetaminophen (Tylenol) 650 mg PO Q4H PRN PRN Reason: Pain MILD(1-3)/Fever >100.5/SARKAR Last Admin: 08/17/18 02:15 Dose: 650 mg Documented by: Docusate Sodium (Colace) 100 mg PO BID [facility] Last Admin: 08/17/18 12:28 Dose: 100 mg Documented by: Famotidine (Pepcid) 20 mg IV BID [facility] Last Admin: 08/17/18 09:32 Dose: 20 mg Documented by: Sodium Chloride (Nacl 0.9% 1000 Ml) 1,000 mls @ 100 mls/hr IV DIRECT [facility] Last Admin: 08/17/18 09:31 Dose: 150 mls/hr Documented by: Ceftriaxone Sodium (Rocephin/Ns 1 Gm/50 Ml) 1 gm in 50 mls @ 100 mls/hr IV Q24HR [facility]; Protocol Last Admin: 08/17/18 09:31 Dose: 100 mls/hr Documented by: Ketorolac Tromethamine (Toradol) 30 mg IV Q8H PRN PRN Reason: Pain, Moderate (4-6) Stop: 08/21/18 13:06 Last Admin: 08/17/18 13:51 Dose: 30 mg Documented by: Metoclopramide HCl (Reglan) 10 mg IV Q6H PRN PRN Reason: Nausea And Vomiting Morphine Sulfate (Morphine) 2 mg IV Q4H PRN PRN Reason: Pain, Moderate (4-6) Last Admin: 08/17/18 12:29 Dose: 2 mg Documented by: Ondansetron HCl (Zofran) 4 mg IV Q4H PRN PRN Reason: Nausea And Vomiting Last Admin: 08/17/18 12:29 Dose: 4 mg Documented by: Senna/Docusate Sodium (Senokot S) 1 tab PO QHS [facility] Last Admin: 08/16/18 21:48 Dose: 1 tab Documented by: Simethicone (Mylicon) 80 mg PO PC PRN PRN Reason: Gas pain Last Admin: 08/16/18 19:53 Dose: 80 mg Documented by: Sodium Chloride (Sodium Chloride Flush Syringe 10 Ml) 10 ml IV BID [facility] Last Admin: 08/17/18 09:32 Dose: 10 ml Documented by: Sodium Chloride (Sodium Chloride Flush Syringe 10 Ml) 10 ml IV PRN PRN PRN Reason: LINE FLUSH medications reviewed/updated as required Review of Systems - Review of Systems All systems: negative Gastrointestinal: nausea (pelvic pain, rectal pain), other Exam - Constitutional Vital Signs: Temp Pulse Resp BP Pulse Ox 98.4 F 83 18 109/59 100 08/17/18 06:55 08/17/18 06:55 08/17/18 06:55 08/17/18 06:55 08/17/18 10:00 General appearance: mild distress - Respiratory Respiratory: bilateral: CTA - Cardiovascular Rhythm: regular Heart Sounds: Present: S1 & S2 - Gastrointestinal General gastrointestinal: Present: soft, tender (slightly TTP in suprapubic area), non-distended, normal bowel sounds Rectal Exam: other (+thrombosed hemorrhoid, no blood (cloth folder hand present during exam-Kesha ZAMUDIO)) - Neurologic Neurological: alert and oriented x3 - Labs CBC & Chem 7: 08/17/18 05:38 08/17/18 05:38 Lab Results: Laboratory Results - last 24 hr 08/17/18 08/17/18 05:38 05:38 WBC 17.3 H RBC 3.28 L Hgb 8.6 L Hct 26.8 L MCV 82 MCH 26 L MCHC 32 RDW 15.6 H Plt Count 353 Add Manual Diff Complete Total Counted 100 Seg Neuts % (Manual) 46.0 Band Neutrophils % 19.0 Lymphocytes % (Manual) 16.0 Reactive Lymphs % (Man) 0 Monocytes % (Manual) 16.0 H Eosinophils % (Manual) 0 Basophils % (Manual) 0 Metamyelocytes % 3.0 Myelocytes % 0 Promyelocytes % 0 Blast Cells % 0 Nucleated RBC % Not Reportable Seg Neutrophils # Man 8.0 H Band Neutrophils # 3.3 Lymphocytes # (Manual) 2.8 Abs React Lymphs (Man) 0.0 Monocytes # (Manual) 2.8 H Eosinophils # (Manual) 0.0 Basophils # (Manual) 0.0 Metamyelocytes # 0.5 Myelocytes # 0.0 Promyelocytes # 0.0 Blast Cells # 0.0 WBC Morphology Not Reportable Hypersegmented Neuts Not Reportable Hyposegmented Neuts Not Reportable Hypogranular Neuts Not Reportable Smudge Cells Not Reportable Toxic Granulation Not Reportable Toxic Vacuolation Not Reportable Dohle Bodies Not Reportable Pelger-Huet Anomaly Not Reportable Dereck Rods Not Reportable Platelet Estimate Appears normal Clumped Platelets Not Reportable Plt Clumps, EDTA Not Reportable Large Platelets Not Reportable Giant Platelets Few Platelet Satelliting Not Reportable Plt Morphology Comment Not Reportable RBC Morphology Not Reportable Dimorphic RBCs Not Reportable Polychromasia Not Reportable Hypochromasia Few Poikilocytosis Not Reportable Anisocytosis 1+ Microcytosis Not Reportable Macrocytosis Not Reportable Spherocytes Not Reportable Pappenheimer Bodies Not Reportable Sickle Cells Not Reportable Target Cells Not Reportable Tear Drop Cells Not Reportable Ovalocytes 1+ Helmet Cells Not Reportable Wiseman-Jarales Bodies Not Reportable [place] Rings Not Reportable [place] Cells Few Bite Cells Not Reportable Crenated Cell Not Reportable Elliptocytes Few Acanthocytes (Spur) Not Reportable Rouleaux Not Reportable Hemoglobin C Crystals Not Reportable Schistocytes Not Reportable Malaria parasites Not Reportable Peyman Bodies Not Reportable Hem Pathologist Commnt No Sodium 139 Potassium 3.4 L Chloride 104.2 Carbon Dioxide 21 L Anion Gap 17 BUN 3 L Creatinine 0.5 L Estimated GFR > 60 BUN/Creatinine Ratio 6 Glucose 89 Calcium 7.6 L Assessment and Plan 1.thrombosed hemorrhoid -start on topical steroid/lidocaine cream -continue stool softener to prevent constipation -continue supportive care -consider surgery consult based on clinical course if symptoms fail to improve -will follow
[2018-08-17] MEDS ORDERED: XYLOCAINE TOPICAL 2% 30ML TP PRN (15:19)
--- NOTE | 2018-08-17 15:53 | Consultation ---
History of Present Illness - Reason for Consult Consult date: 08/17/18 ?pyelonephritis Requesting physician: JOSE ENRIQUE OH - History of Present Illness The patient is a 47-year-old female with history of fibroids who initially presented to the emergency room on 08/12/2018 with complaints of abdominal/pelvic pain. Apparently, last Thursday she developed severe nausea, vomiting and diarrhea which continued through Thursday. Later she developed some rectal pain as well. Due to worsening lower abdominal pain she came to the ER on 08/12/2018. She underwent a CT abdomen and pelvis with IV contrast which showed ovarian cysts and fibroids. She was diagnosed with a possible UTI and discharged with oral Bactrim. She returned to the emergency room yesterday with complaints of low-grade fevers and ongoing abdominal and rectal pain. Due to concerns for pyelonephritis, infectious diseases was consulted. The patient denies any urinary burning. She thinks her urine has been concentrated due to dehydration. Does report a previous history of ovarian cysts status post cystectomies and a previous history of myomectomies for uterine fibroids. Denies any vaginal discharge. There is no concern or history for an STD, is and in a monogamous relationship. Review of Systems: General: low grade fevers, no rigors HEENT: no new visual disturbance Respiratory: No cough, sputum, hemoptysis or shortness of breath Cardiovascular: No chest pain, syncope Gastrointestinal: No nausea, vomiting or diarrhea at present Genitourinary: No dysuria or hematuria Musculoskeletal: No new or worsening neck pain or back pain Neurologic: No headaches, seizures Hematologic: No easy bruising or bleeding Endocrine: No night sweats or acute weight loss Skin: negative for rash, jaundice Psychiatric: No suicidal or homicidal ideation Past History Past Medical History: other (ovarian cysts, fibroids) Past Surgical History: 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 denies: smoking, alcohol abuse, prescription drug abuse Family history: hypertension Medications and Allergies Allergies Allergy/AdvReac Type Severity Reaction Status Date / Time fluconazole Allergy Rash Verified 08/12/18 06:34 tramadol AdvReac Headache Verified 08/15/18 19:50 Home Medications Medication Instructions Recorded Confirmed Last Taken Type Sulfamethoxazole/Trimethoprim 1 each PO BID 10 Days #6 tablet 08/12/18 08/15/18 Unknown Rx [Bactrim DS TAB] traMADol [Ultram] 50 mg PO Q6HR PRN #7 tablet 08/12/18 08/15/18 Unknown Rx Active Meds: Active Medications Acetaminophen (Tylenol) 650 mg PO Q4H PRN PRN Reason: Pain MILD(1-3)/Fever >100.5/SARKAR Last Admin: 08/17/18 02:15 Dose: 650 mg Documented by: Docusate Sodium (Colace) 100 mg PO BID [facility] Last Admin: 08/17/18 12:28 Dose: 100 mg Documented by: Famotidine (Pepcid) 20 mg IV BID [facility] Last Admin: 08/17/18 09:32 Dose: 20 mg Documented by: Hydrocortisone Acetate (Proctosol-Hc) 1 applic [place] BID [facility] Sodium Chloride (Nacl 0.9% 1000 Ml) 1,000 mls @ 100 mls/hr IV DIRECT [facility] Last Admin: 08/17/18 09:31 Dose: 150 mls/hr Documented by: Ceftriaxone Sodium (Rocephin/Ns 1 Gm/50 Ml) 1 gm in 50 mls @ 100 mls/hr IV Q24HR [facility]; Protocol Last Admin: 08/17/18 09:31 Dose: 100 mls/hr Documented by: Ketorolac Tromethamine (Toradol) 30 mg IV Q8H PRN PRN Reason: Pain, Moderate (4-6) Stop: 08/21/18 13:06 Last Admin: 08/17/18 13:51 Dose: 30 mg Documented by: Lidocaine (Xylocaine Topical 2% 30ml) 1 applic TP ONCE PRN PRN Reason: rectal pain Metoclopramide HCl (Reglan) 10 mg IV Q6H PRN PRN Reason: Nausea And Vomiting Morphine Sulfate (Morphine) 2 mg IV Q4H PRN PRN Reason: Pain, Moderate (4-6) Last Admin: 08/17/18 12:29 Dose: 2 mg Documented by: Ondansetron HCl (Zofran) 4 mg IV Q4H PRN PRN Reason: Nausea And Vomiting Last Admin: 08/17/18 12:29 Dose: 4 mg Documented by: Senna/Docusate Sodium (Senokot S) 1 tab PO QHS [facility] Last Admin: 08/16/18 21:48 Dose: 1 tab Documented by: Simethicone (Mylicon) 80 mg PO PC PRN PRN Reason: Gas pain Last Admin: 08/16/18 19:53 Dose: 80 mg Documented by: Sodium Chloride (Sodium Chloride Flush Syringe 10 Ml) 10 ml IV BID [facility] Last Admin: 08/17/18 09:32 Dose: 10 ml Documented by: Sodium Chloride (Sodium Chloride Flush Syringe 10 Ml) 10 ml IV PRN PRN PRN Reason: LINE FLUSH Physical Examination - Physical Exam Narrative exam: Physical Exam: Constitutional: Alert, cooperative. No acute distress Head, Ears, Nose: Normocephalic, atraumatic. External ears, nose normal Eyes: Conjunctivae/corneas clear. No icterus. No ptosis. Neck: Supple, no meningeal signs Oral: dentition fair, no thrush Cardiovascular: S1, S2 normal. Respiratory: Good air entry, clear to auscultation bilaterally GI: Soft, lower abdominal tenderness; bowel sounds normal. No peritoneal signs. No CVA tenderness Musculoskeletal: No pedal edema, no cyanosis. Skin: No rash or abscess Hem/Lymphatic: No palpable cervical or supraclavicular nodes. No lymphangitis Psych: Mood ok. Affect normal Neurological: Awake, alert, oriented. No gross abnormality - Constitutional Vitals: Vital Signs Temp Pulse Resp BP Pulse Ox 98.4 F 83 18 109/59 100 08/17/18 06:55 08/17/18 06:55 08/17/18 06:55 08/17/18 06:55 08/17/18 10:00 Temperature -Last 24 Hours Temperature 98.4 F Temperature 100.2 F Temperature 99.4 F Results - Labs CBC & Chem 7: 08/17/18 05:38 08/17/18 05:38 Labs: Imaging: Pelvic ultrasound showed 2 uterine fibroids, right adnexal mass measuring 5.6 cm which could be a hemorrhagic ovarian cyst or endometrioma. Tubo-ovarian abscess thought to be less likely. Transvaginal ultrasound revealed again to uterine fibroids, right adnexal mass which could be a hemorrhagic ovarian cyst or endometrioma. Abnormal lab results 08/17/18 08/17/18 Range/Units 05:38 05:38 WBC 17.3 H (4.5-11.0) K/mm3 RBC 3.28 L (3.65-5.03) M/mm3 Hgb 8.6 L (10.1-14.3) gm/dl Hct 26.8 L (30.3-42.9) % MCH 26 L (28-32) pg RDW 15.6 H (13.2-15.2) % Monocytes % (Manual) 16.0 H (0.0-7.3) % Seg Neutrophils # Man 8.0 H (1.8-7.7) K/mm3 Monocytes # (Manual) 2.8 H (0.0-0.8) K/mm3 Potassium 3.4 L (3.6-5.0) mmol/L Carbon Dioxide 21 L (22-30) mmol/L BUN 3 L (7-17) mg/dL Creatinine 0.5 L (0.7-1.2) mg/dL Calcium 7.6 L (8.4-10.2) mg/dL - Imaging and Cardiology CT scan - abdomen: report reviewed, image reviewed CT scan - chest: report reviewed, image reviewed (showed uterine fibroids.) Assessment and Plan Cultures: 08/15/2018 blood culture: No growth A/P: 47/F with h/o fibroids admitted with: 1) Low-grade fevers and leukocytosis: Possibly related to hemorrhagic ovarian cyst versus endometrioma on the right side. There is no concern or history for an STD, is and in a monogamous relationship. Likelihood of urinary tract infection or pyelonephritis is quite low. Patient denies any urinary burning, has no CVA tenderness. Initial UA on 08/12/2018 showed only 7 WBCs per high- power field, follow-up UA on 08/15/2018 shows 17 WBCs/HPF. Initial CT scan on 08/12/2018 also did not show any enhancement of the kidneys / perinephric stranding to suggest pyelonephritis. 2) Leucocytosis: probably reactive from the hemorrhagic ovarian cyst v/s endometrioma. For now, will d/c Ceftriaxone, switch to IV Cefepime. 3) Thrombosed hemorroid: GI following. Recent viral gastroenteritis. Recs: - pyelonephritis / UTI sees less likely - will d/c Ceftriaxone, switch to IV Cefepime Plan d/w Dr. Singer from [employer] [facility] and Dr. Oh from [facility]. Susanna Dennis MD [facility] C: [phone] O: [phone] F: [phone]
--- NOTE | 2018-08-17 16:09 | Progress Note ---
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 She had CT abd/pelvis with iv contrast (see below). She was diagnosis with AGE, UTI and Ovarian cyst. She was sent home on Bactrim, naprosyn, tram adol, and zofran ODT. She comes back on 08/15/18 with worsening symptoms including rectal pain. ED physician found external hemorrhoids and told patient they were thrombosed and treated with topical lidocaine. Patient admitted to inpatient due to failing outpatient therapy. * (prior visit) CT abd/pelvis with IV contrast FINDINGS: Lung bases: Normal. Liver: Normal. Biliary system: Normal. Pancreas: Normal. Spleen: Normal. Kidneys/ureters/bladder: Normal. Adrenal glands: Normal. Aorta: Normal. Int estines: Within normal limits given no oral contrast was administered. Appendix: Not confidently identified, correlate with surgical history. Pelvic viscera: Multiple hypoechoic uterine masses are identified ranging from 1-4 cm in diameter which presumably represent uterine fibroids. There is a large cyst in the left adnexa measuring 6.5 x 6.6 cm. This presumably represents a large ovarian cyst. There is also a 3.8 x 1.8 cm cyst in the right adnexa. Ascites: None. Adenopathy: None. Musculoskeletal: Normal. IMPRESSION: Uterine fibroid disease. Bilateral adnexal cysts which presumably represent ovarian cysts. Please * US transvaginal/pelvic IMPRESSION: 2 uterine fibroids are identified. There is right adnexal mass measuring 5.6 cm. This could be a hemorrhagic ovarian cyst or endometrioma.. There is no ovarian torsion. The left ovary is not seen. There is no free fluid. -UTI: treat with abx, await urine culture, get renal u/s to rule out pyelonephritis and consulted ID -Anemia, drop in HCT: stop lovenox, repeat cbc in am -Hemorrhoids, ?thrombosed external: consulted GI -Bilateral adnexal mass, most likely ovarian cyst: consulted and d/w elementary school librarian, Dr. Karley Escoto who recommends renal u/s -DVT prophylaxis: scd for now History Interval history: Patient was seen and examined. Follow-up on current diagnosis of UTI. Overnight uneventful. Patient denies any chest pain, shortness breath, nausea/vomiting or severe headaches. Imaging, nursing note, chart, labs and old chart reviewed. Discussed with patient. Hospitalist Physical - Physical exam Narrative exam: GEN: WDWN, NAD, Awake, Alert, Orientated HEENT: NCAT, EOMI, PERRL, OP Clear NECK: supple, no adenopathy, no thyromegaly, no JVD CVS/HEART: RRR, normal S1S2, pulses present bilaterally CHEST/LUNGS: CTA B, Symmetrical chest expansion, good air entry bilaterally GI/Abdomen: soft, NTND, good bowel sounds, no guarding or rebound /Bladder: no suprapubic tenderness, no CVA or paraspinal tenderness EXT/Skin: no c/c/e, no obvious rash MSK: FROM x 4 Neuro: CN 2-12 grossly intact, no new focal deficits Psych: calm - Constitutional Vitals: Temp Pulse Resp BP Pulse Ox 98.4 F 83 18 109/59 100 08/17/18 06:55 08/17/18 06:55 08/17/18 06:55 08/17/18 06:55 08/17/18 10:00 Results - Labs CBC & Chem 7: 08/17/18 05:38 08/17/18 05:38 Labs: Laboratory Last Values WBC 17.3 K/mm3 (4.5-11.0) H 08/17/18 05:38 RBC 3.28 M/mm3 (3.65-5.03) L 08/17/18 05:38 Hgb 8.6 gm/dl (10.1-14.3) L 08/17/18 05:38 Hct 26.8 % (30.3-42.9) L 08/17/18 05:38 MCV 82 fl (79-97) 08/17/18 05:38 MCH 26 pg (28-32) L 08/17/18 05:38 MCHC 32 % (30-34) 08/17/18 05:38 RDW 15.6 % (13.2-15.2) H 08/17/18 05:38 Plt Count 353 K/mm3 (140-440) 08/17/18 05:38 Add Manual Diff Complete 08/17/18 05:38 Total Counted 100 08/17/18 05:38 Seg Neuts % (Manual) 46.0 % (40.0-70.0) 08/17/18 05:38 Band Neutrophils % 19.0 % 08/17/18 05:38 Lymphocytes % (Manual) 16.0 % (13.4-35.0) 08/17/18 05:38 Reactive Lymphs % (Man) 0 % 08/17/18 05:38 Monocytes % (Manual) 16.0 % (0.0-7.3) H 08/17/18 05:38 Eosinophils % (Manual) 0 % (0.0-4.3) 08/17/18 05:38 Basophils % (Manual) 0 % (0.0-1.8) 08/17/18 05:38 Metamyelocytes % 3.0 % 08/17/18 05:38 Myelocytes % 0 % 08/17/18 05:38 Promyelocytes % 0 % 08/17/18 05:38 Blast Cells % 0 % 08/17/18 05:38 Nucleated RBC % Not Reportable 08/17/18 05:38 Seg Neutrophils # Man 8.0 K/mm3 (1.8-7.7) H 08/17/18 05:38 Band Neutrophils # 3.3 K/mm3 08/17/18 05:38 Lymphocytes # (Manual) 2.8 K/mm3 (1.2-5.4) 08/17/18 05:38 Abs React Lymphs (Man) 0.0 K/mm3 08/17/18 05:38 Monocytes # (Manual) 2.8 K/mm3 (0.0-0.8) H 08/17/18 05:38 Eosinophils # (Manual) 0.0 K/mm3 (0.0-0.4) 08/17/18 05:38 Basophils # (Manual) 0.0 K/mm3 (0.0-0.1) 08/17/18 05:38 Metamyelocytes # 0.5 K/mm3 08/17/18 05:38 Myelocytes # 0.0 K/mm3 08/17/18 05:38 Promyelocytes # 0.0 K/mm3 08/17/18 05:38 Blast Cells # 0.0 K/mm3 08/17/18 05:38 WBC Morphology Not Reportable 08/17/18 05:38 Hypersegmented Neuts Not Reportable 08/17/18 05:38 Hyposegmented Neuts Not Reportable 08/17/18 05:38 Hypogranular Neuts Not Reportable 08/17/18 05:38 Smudge Cells Not Reportable 08/17/18 05:38 Toxic Granulation Not Reportable 08/17/18 05:38 Toxic Vacuolation Not Reportable 08/17/18 05:38 Dohle Bodies Not Reportable 08/17/18 05:38 Pelger-Huet Anomaly Not Reportable 08/17/18 05:38 Dereck Rods Not Reportable 08/17/18 05:38 Platelet Estimate Appears normal 08/17/18 05:38 Clumped Platelets Not Reportable 08/17/18 05:38 Plt Clumps, EDTA Not Reportable 08/17/18 05:38 Large Platelets Not Reportable 08/17/18 05:38 Giant Platelets Few 08/17/18 05:38 Platelet Satelliting Not Reportable 08/17/18 05:38 Plt Morphology Comment Not Reportable 08/17/18 05:38 RBC Morphology Not Reportable 08/17/18 05:38 Dimorphic RBCs Not Reportable 08/17/18 05:38 Polychromasia Not Reportable 08/17/18 05:38 Hypochromasia Few 08/17/18 05:38 Poikilocytosis Not Reportable 08/17/18 05:38 Anisocytosis 1+ 08/17/18 05:38 Microcytosis Not Reportable 08/17/18 05:38 Macrocytosis Not Reportable 08/17/18 05:38 Spherocytes Not Reportable 08/17/18 05:38 Pappenheimer Bodies Not Reportable 08/17/18 05:38 Sickle Cells Not Reportable 08/17/18 05:38 Target Cells Not Reportable 08/17/18 05:38 Tear Drop Cells Not Reportable 08/17/18 05:38 Ovalocytes 1+ 08/17/18 05:38 Helmet Cells Not Reportable 08/17/18 05:38 Wiseman-[place] Bodies Not Reportable 08/17/18 05:38 [place] Rings Not Reportable 08/17/18 05:38 [place] Cells Few 08/17/18 05:38 Bite Cells Not Reportable 08/17/18 05:38 Crenated Cell Not Reportable 08/17/18 05:38 Elliptocytes Few 08/17/18 05:38 Acanthocytes (Spur) Not Reportable 08/17/18 05:38 Rouleaux Not Reportable 08/17/18 05:38 Hemoglobin C Crystals Not Reportable 08/17/18 05:38 Schistocytes Not Reportable 08/17/18 05:38 Malaria parasites Not Reportable 08/17/18 05:38 Peyman Bodies Not Reportable 08/17/18 05:38 Hem Pathologist Commnt No 08/17/18 05:38 Sodium 139 mmol/L (137-145) 08/17/18 05:38 Potassium 3.4 mmol/L (3.6-5.0) L 08/17/18 05:38 Chloride 104.2 mmol/L (98-107) 08/17/18 05:38 Carbon Dioxide 21 mmol/L (22-30) L 08/17/18 05:38 Anion Gap 17 mmol/L 08/17/18 05:38 BUN 3 mg/dL (7-17) L 08/17/18 05:38 Creatinine 0.5 mg/dL (0.7-1.2) L 08/17/18 05:38 Estimated GFR > 60 ml/min 08/17/18 05:38 BUN/Creatinine Ratio 6 % 08/17/18 05:38 Glucose 89 mg/dL (65-100) 08/17/18 05:38 Calcium 7.6 mg/dL (8.4-10.2) L 08/17/18 05:38 Total Bilirubin 0.20 mg/dL (0.1-1.2) 08/15/18 20:20 AST 11 units/L (5-40) 08/15/18 20:20 ALT 11 units/L (7-56) 08/15/18 20:20 Alkaline Phosphatase 94 units/L (35-129) 08/15/18 20:20 Total Protein 7.7 g/dL (6.3-8.2) 08/15/18 20:20 Albumin 3.4 g/dL (3.9-5) L 08/15/18 20:20 Albumin/Globulin Ratio 0.8 % 08/15/18 20:20 Lipase 14 units/L (13-60) 08/15/18 20:20 Urine Color Yellow (Yellow) 08/15/18 Unknown Urine Turbidity Clear (Clear) 08/15/18 Unknown Urine pH 6.0 (5.0-7.0) 08/15/18 Unknown Ur Specific [place] 1.027 (1.003-1.030) 08/15/18 Unknown Urine Protein <15 mg/dl mg/dL (Negative) 08/15/18 Unknown Urine Glucose (UA) Neg mg/dL (Negative) 08/15/18 Unknown Urine Ketones Neg mg/dL (Negative) 08/15/18 Unknown Urine Blood Neg (Negative) 08/15/18 Unknown Urine Nitrite Neg (Negative) 08/15/18 Unknown Ur Reducing Substances Not Reportable 08/15/18 Unknown Urine Bilirubin Neg (Negative) 08/15/18 Unknown Urine Ictotest Not Reportable 08/15/18 Unknown Urine Urobilinogen < 2.0 mg/dL (<2.0) 08/15/18 Unknown Ur Leukocyte Esterase Neg (Negative) 08/15/18 Unknown Urine WBC (Auto) 17.0 /HPF (0.0-6.0) H 08/15/18 Unknown Urine RBC (Auto) 12.0 /HPF (0.0-6.0) 08/15/18 Unknown U Epithel Cells (Auto) 4.0 /HPF (0-13.0) 08/15/18 Unknown Urine Mucus Few /HPF 08/15/18 Unknown Urine HCG, Qual Negative (Negative) 08/15/18 21:16
[2018-08-17] MEDS ORDERED: XYLOCAINE TOPICAL 2% 5ML TP PRN (16:32)
[2018-08-17] MEDS: PROCTOSOL-HC PR SCH ×2 (17:09→22:28)
[2018-08-17] MEDS: MAXIPIME/NS 1 GM/100 ML 1 GM/100 ML BAG IV SCH (17:09)
[2018-08-17] MEDS: MYLICON PO PRN (20:34)
[2018-08-17] MEDS: REGLAN IV PRN (20:34)
[2018-08-17] MEDS: DILAUDID IV PRN (21:25)
[2018-08-17] MEDS: SENOKOT S PO SCH (21:40)
[2018-08-18] MEDS: MAXIPIME/NS 1 GM/100 ML 1 GM/100 ML BAG IV SCH ×2 (02:19→09:09)
[2018-08-18] MEDS: DILAUDID IV PRN ×5 (02:19→21:32)
[2018-08-18] MEDS: ZOFRAN IV PRN ×3 (07:02→18:41)
[2018-08-18] MEDS: NACL 0.9% 1000 ML 1,000 ML IV SCH (07:09)
[2018-08-18] MEDS: COLACE PO SCH (09:09)
[2018-08-18] MEDS: PEPCID IV SCH ×2 (09:09→21:32)
[2018-08-18] MEDS: SODIUM CHLORIDE FLUSH SYRINGE 10 ML IV SCH ×2 (09:09→22:36)
[2018-08-18] MEDS: PROCTOSOL-HC PR SCH (09:10)
[2018-08-18] MEDS: TORADOL IV PRN (09:24)
--- NOTE | 2018-08-18 10:45 | Progress Note ---
Assessment and Plan Cultures: 08/15/2018 blood culture: No growth A/P: 47/F with h/o fibroids admitted with: 1) Low-grade fevers and leukocytosis: Possibly related to hemorrhagic ovarian cyst versus endometrioma on the right side. There is no concern or history for an STD, is and in a monogamous relationship. Likelihood of urinary tract infection or pyelonephritis is quite low. Patient denies any urinary burning, has no CVA tenderness. Initial UA on 08/12/2018 showed only 7 WBCs per high- power field, follow-up UA on 08/15/2018 shows 17 WBCs/HPF. Initial CT scan on 08/12/2018 also did not show any enhancement of the kidneys / perinephric stranding to suggest pyelonephritis. 2) Leucocytosis: probably reactive from the hemorrhagic ovarian cyst v/s endometrioma. For now, will d/c Ceftriaxone, switch to IV Cefepime. 3) Thrombosed hemorroid: GI following. Recent viral gastroenteritis. Recs: - pyelonephritis / UTI sees less likely - Continue IV Cefepime, D2 - CBC ordered for the morning Daphnie Almeida NP [facility] M: [phone] O:[phone] Subjective Date of service: 08/18/18 Interval history: Patient seen and examined. Continued nausea and generalized weakness. Denied pain, SOB. No fevers. Nurses notes, labs, reports reviewed, discussed with patient. Objective - Exam Narrative Exam: Constitutional: Alert, cooperative. Generalized weakness. Head, Ears, Nose: Normocephalic, atraumatic. External ears, nose normal Eyes: Conjunctivae/corneas clear. No icterus. No ptosis. Neck: Supple, no meningeal signs Oral: dentition fair, no thrush Cardiovascular: S1, S2 normal. Respiratory: Good air entry, clear to auscultation bilaterally GI: Soft, lower abdominal tenderness; bowel sounds normal. No peritoneal signs. No CVA tenderness Musculoskeletal: No pedal edema, no cyanosis. Skin: No rash or abscess Hem/Lymphatic: No palpable cervical or supraclavicular nodes. No lymphangitis Psych: Mood ok. Affect normal Neurological: Awake, alert, oriented. No gross abnormality - Constitutional Vitals: Vital Signs Temp Pulse Resp BP Pulse Ox 98.2 F 85 18 118/68 99 03/13/19 05:13 08/18/18 05:13 08/18/18 07:01 08/18/18 05:13 08/18/18 05:13 Temperature -Last 24 Hours Temperature 98.2 F Temperature 99.4 F - Labs CBC & Chem 7: 08/17/18 05:38 08/17/18 05:38
[2018-08-18] MEDS: REGLAN IV PRN (12:47)
[2018-08-18] MEDS: MYLICON PO PRN (12:47)
--- NOTE | 2018-08-18 13:50 | Progress Note ---
Assessment and Plan A/P Pelvic pain continue with WBC following wbc trending down US shows fibroids and ovarian cyst continue pain meds appreciate ID consult stable, afebrile continue to follow Subjective - Subjective Date of service: 08/18/18 Interval history: 47-year-old history of fibroids comes emergency room on 08/12 and was diagnosed with gastroenteritis and urinary tract infection, discharged on Bactrim. She returned to the emergency room today with complaints of fever, persistent nausea, increased pain in her pelvic area and left side pain. Also complaining of a pressure in her rectum Patient reports: appetite normal, voiding normally, pain well controlled Objective - Vital Signs Latest vital signs: Vital Signs Temp Pulse Resp Resp BP BP Pulse Ox 08/18/18 13:26 98.6 F 94 H 20 136/83 08/18/18 07:01 18 08/18/18 05:13 98.2 F 85 24 118/68 99 08/18/18 02:49 18 08/18/18 02:19 18 08/18/18 00:19 18 08/18/18 00:12 93 H 119/57 08/17/18 23:49 18 08/17/18 22:00 18 08/17/18 21:55 18 08/17/18 21:25 18 08/17/18 16:59 99.4 F 16 124/78 Intake and Output 08/17/18 08/18/18 08/18/18 23:59 07:59 15:59 Intake Total 1999 1899 Balance 1999 1899 Intake: IV 1100 1100 MAXIPIME/NS 1 GM/100 ML 1 100 100 gm In 100 ml @ 200 mls/ hr IV Q8H [facility] Rx#: [id number] NaCl 0.9% 1000 ml 1,000 1000 1000 ml @ 100 mls/hr IV DIRECT [facility] Rx#:[id number] Oral 900 800 Other: Total, Intake Amount 900 800 Weight 92 kg Patient Weight 08/18/18 23:59 Weight 92 kg - Exam Breasts: Present: normal Cardiovascular: Present: Regular rate, Normal S1 Lungs: Present: Clear to auscultation, Normal air movement Abdomen: Present: normal appearance, soft, normal bowel sounds. Absent: distention, tenderness, guarding Uterus: Present: normal, firm. Absent: bogginess, tenderness Extremities: Present: normal Incision: Present: normal
--- NOTE | 2018-08-18 13:52 | Gastroenterology Progress Note ---
Assessment and Plan 1.thrombosed hemorrhoid -clinically, patient reports rectal/hemorrhoid pain is now improving. No rectal bleeding overnight or this am. -no plan for scope at this time -continue topical steroid/lidocaine cream -continue stool softener to prevent constipation -continue supportive care -consider surgery consult based on clinical course if symptoms fail to improve -no further GI recommendations at this time -will sign off, please call if needed Subjective Date of service: 08/18/18 Principal diagnosis: thrombosed hemorrhoid Interval history: Patient w/o acute distress. Reports rectal/hemorrhoid pain is now improving with topical medications. No rectal bleeding. Objective - Constitutional Vitals: Temp Pulse Resp BP Pulse Ox 98.6 F 94 H 20 136/83 99 08/18/18 13:26 08/18/18 13:26 08/18/18 13:26 08/18/18 13:26 08/18/18 05:13 General appearance: no acute distress - Respiratory Respiratory: bilateral: CTA - Cardiovascular Rhythm: regular - Gastrointestinal General gastrointestinal: Present: soft, tender (slight TTP in subrapubic area), non-distended, normal bowel sounds - Neurologic Neurological: alert and oriented x3 - Labs CBC & Chem 7: 08/17/18 05:38 08/17/18 05:38
--- NOTE | 2018-08-18 16:55 | Progress Note ---
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 She had CT abd/pelvis with iv contrast (see below). She was diagnosis with AGE, UTI and Ovarian cyst. She was sent home on Bactrim, naprosyn, tram adol, and zofran ODT. She comes back on 08/15/18 with worsening symptoms including rectal pain. ED physician found external hemorrhoids and told patient they were thrombosed and treated with topical lidocaine. Patient admitted to inpatient due to failing outpatient therapy. * (prior visit) CT abd/pelvis with IV contrast FINDINGS: Lung bases: Normal. Liver: Normal. Biliary system: Normal. Pancreas: Normal. Spleen: Normal. Kidneys/ureters/bladder: Normal. Adrenal glands: Normal. Aorta: Normal. Int estines: Within normal limits given no oral contrast was administered. Appendix: Not confidently identified, correlate with surgical history. Pelvic viscera: Multiple hypoechoic uterine masses are identified ranging from 1-4 cm in diameter which presumably represent uterine fibroids. There is a large cyst in the left adnexa measuring 6.5 x 6.6 cm. This presumably represents a large ovarian cyst. There is also a 3.8 x 1.8 cm cyst in the right adnexa. Ascites: None. Adenopathy: None. Musculoskeletal: Normal. IMPRESSION: Uterine fibroid disease. Bilateral adnexal cysts which presumably represent ovarian cysts. Please * US transvaginal/pelvic IMPRESSION: 2 uterine fibroids are identified. There is right adnexal mass measuring 5.6 cm. This could be a hemorrhagic ovarian cyst or endometrioma.. There is no ovarian torsion. The left ovary is not seen. There is no free fluid. -UTI with sepsis: treat with abx, await urine culture, get renal u/s to rule out pyelonephritis and consulted ID -Anemia, drop in HCT: stop lovenox, repeat cbc in am -Hemorrhoids, ?thrombosed external: consulted GI -Bilateral adnexal mass, most likely ovarian cyst: consulted and d/w upholsterer inside, Dr. Karley Singer who recommends renal u/s -DVT prophylaxis: scd for now -D/W Gen. Surgery, Dr. Joseph, who recommend that I speak with Dr. Singer regarding diagnostic scope to evaluate for ROBYN, since pain is worse, clinicallly she is not eating. WBC did go down to 17k from 21k, will repeat cbc in am. I will speak with patient History Interval history: Patient was seen and examined. Follow-up on current diagnosis of UTI. Overnight uneventful. Patient denies any chest pain, shortness breath, nausea/vomiting or severe headaches. Imaging, nursing note, chart, labs and old chart reviewed. Discussed with patient. Hospitalist Physical - Physical exam Narrative exam: GEN: ill NAD, Awake, Alert, Orientated HEENT: NCAT, EOMI, PERRL, OP Clear NECK: supple, no adenopathy, no thyromegaly, no JVD CVS/HEART: RRR, normal S1S2, pulses present bilaterally CHEST/LUNGS: CTA B, Symmetrical chest expansion, good air entry bilaterally GI/Abdomen: soft, NTND, good bowel sounds, no guarding or rebound /Bladder: + suprapubic tenderness, no CVA or paraspinal tenderness EXT/Skin: no c/c/e, no obvious rash MSK: FROM x 4 Neuro: CN 2-12 grossly intact, no new focal deficits Psych: calm - Constitutional Vitals: Temp Pulse Resp BP Pulse Ox 98.6 F 94 H 20 136/83 99 08/18/18 13:26 08/18/18 13:26 08/18/18 13:26 08/18/18 13:26 08/18/18 05:13 Results - Labs CBC & Chem 7: 08/17/18 05:38 08/17/18 05:38 Labs: Laboratory Last Values WBC 17.3 K/mm3 (4.5-11.0) H 08/17/18 05:38 RBC 3.28 M/mm3 (3.65-5.03) L 08/17/18 05:38 Hgb 8.6 gm/dl (10.1-14.3) L 08/17/18 05:38 Hct 26.8 % (30.3-42.9) L 08/17/18 05:38 MCV 82 fl (79-97) 08/17/18 05:38 MCH 26 pg (28-32) L 08/17/18 05:38 MCHC 32 % (30-34) 08/17/18 05:38 RDW 15.6 % (13.2-15.2) H 08/17/18 05:38 Plt Count 353 K/mm3 (140-440) 08/17/18 05:38 Add Manual Diff Complete 08/17/18 05:38 Total Counted 100 08/17/18 05:38 Seg Neuts % (Manual) 46.0 % (40.0-70.0) 08/17/18 05:38 Band Neutrophils % 19.0 % 08/17/18 05:38 Lymphocytes % (Manual) 16.0 % (13.4-35.0) 08/17/18 05:38 Reactive Lymphs % (Man) 0 % 08/17/18 05:38 Monocytes % (Manual) 16.0 % (0.0-7.3) H 08/17/18 05:38 Eosinophils % (Manual) 0 % (0.0-4.3) 08/17/18 05:38 Basophils % (Manual) 0 % (0.0-1.8) 08/17/18 05:38 Metamyelocytes % 3.0 % 08/17/18 05:38 Myelocytes % 0 % 08/17/18 05:38 Promyelocytes % 0 % 08/17/18 05:38 Blast Cells % 0 % 08/17/18 05:38 Nucleated RBC % Not Reportable 08/17/18 05:38 Seg Neutrophils # Man 8.0 K/mm3 (1.8-7.7) H 08/17/18 05:38 Band Neutrophils # 3.3 K/mm3 08/17/18 05:38 Lymphocytes # (Manual) 2.8 K/mm3 (1.2-5.4) 08/17/18 05:38 Abs React Lymphs (Man) 0.0 K/mm3 08/17/18 05:38 Monocytes # (Manual) 2.8 K/mm3 (0.0-0.8) H 08/17/18 05:38 Eosinophils # (Manual) 0.0 K/mm3 (0.0-0.4) 08/17/18 05:38 Basophils # (Manual) 0.0 K/mm3 (0.0-0.1) 08/17/18 05:38 Metamyelocytes # 0.5 K/mm3 08/17/18 05:38 Myelocytes # 0.0 K/mm3 08/17/18 05:38 Promyelocytes # 0.0 K/mm3 08/17/18 05:38 Blast Cells # 0.0 K/mm3 08/17/18 05:38 WBC Morphology Not Reportable 08/17/18 05:38 Hypersegmented Neuts Not Reportable 08/17/18 05:38 Hyposegmented Neuts Not Reportable 08/17/18 05:38 Hypogranular Neuts Not Reportable 08/17/18 05:38 Smudge Cells Not Reportable 08/17/18 05:38 Toxic Granulation Not Reportable 08/17/18 05:38 Toxic Vacuolation Not Reportable 08/17/18 05:38 Dohle Bodies Not Reportable 08/17/18 05:38 Pelger-Huet Anomaly Not Reportable 08/17/18 05:38 Dereck Rods Not Reportable 08/17/18 05:38 Platelet Estimate Appears normal 08/17/18 05:38 Clumped Platelets Not Reportable 08/17/18 05:38 Plt Clumps, EDTA Not Reportable 08/17/18 05:38 Large Platelets Not Reportable 08/17/18 05:38 Giant Platelets Few 08/17/18 05:38 Platelet Satelliting Not Reportable 08/17/18 05:38 Plt Morphology Comment Not Reportable 08/17/18 05:38 RBC Morphology Not Reportable 08/17/18 05:38 Dimorphic RBCs Not Reportable 08/17/18 05:38 Polychromasia Not Reportable 08/17/18 05:38 Hypochromasia Few 08/17/18 05:38 Poikilocytosis Not Reportable 08/17/18 05:38 Anisocytosis 1+ 08/17/18 05:38 Microcytosis Not Reportable 08/17/18 05:38 Macrocytosis Not Reportable 08/17/18 05:38 Spherocytes Not Reportable 08/17/18 05:38 Pappenheimer Bodies Not Reportable 08/17/18 05:38 Sickle Cells Not Reportable 08/17/18 05:38 Target Cells Not Reportable 08/17/18 05:38 Tear Drop Cells Not Reportable 08/17/18 05:38 Ovalocytes 1+ 08/17/18 05:38 Helmet Cells Not Reportable 08/17/18 05:38 [place] Bodies Not Reportable 08/17/18 05:38 [place] Rings Not Reportable 08/17/18 05:38 [place] Cells Few 08/17/18 05:38 Bite Cells Not Reportable 08/17/18 05:38 Crenated Cell Not Reportable 08/17/18 05:38 Elliptocytes Few 08/17/18 05:38 Acanthocytes (Spur) Not Reportable 08/17/18 05:38 Rouleaux Not Reportable 08/17/18 05:38 Hemoglobin C Crystals Not Reportable 08/17/18 05:38 Schistocytes Not Reportable 08/17/18 05:38 Malaria parasites Not Reportable 08/17/18 05:38 Peyman Bodies Not Reportable 08/17/18 05:38 Hem Pathologist Commnt No 08/17/18 05:38 Sodium 139 mmol/L (137-145) 08/17/18 05:38 Potassium 3.4 mmol/L (3.6-5.0) L 08/17/18 05:38 Chloride 104.2 mmol/L (98-107) 08/17/18 05:38 Carbon Dioxide 21 mmol/L (22-30) L 08/17/18 05:38 Anion Gap 17 mmol/L 08/17/18 05:38 BUN 3 mg/dL (7-17) L 08/17/18 05:38 Creatinine 0.5 mg/dL (0.7-1.2) L 08/17/18 05:38 Estimated GFR > 60 ml/min 08/17/18 05:38 BUN/Creatinine Ratio 6 % 08/17/18 05:38 Glucose 89 mg/dL (65-100) 08/17/18 05:38 Calcium 7.6 mg/dL (8.4-10.2) L 08/17/18 05:38 Total Bilirubin 0.20 mg/dL (0.1-1.2) 08/15/18 20:20 AST 11 units/L (5-40) 08/15/18 20:20 ALT 11 units/L (7-56) 08/15/18 20:20 Alkaline Phosphatase 94 units/L (35-129) 08/15/18 20:20 Total Protein 7.7 g/dL (6.3-8.2) 08/15/18 20:20 Albumin 3.4 g/dL (3.9-5) L 08/15/18 20:20 Albumin/Globulin Ratio 0.8 % 08/15/18 20:20 Lipase 14 units/L (13-60) 08/15/18 20:20 Urine Color Yellow (Yellow) 08/15/18 Unknown Urine Turbidity Clear (Clear) 08/15/18 Unknown Urine pH 6.0 (5.0-7.0) 08/15/18 Unknown Ur Specific [place] 1.027 (1.003-1.030) 08/15/18 Unknown Urine Protein <15 mg/dl mg/dL (Negative) 08/15/18 Unknown Urine Glucose (UA) Neg mg/dL (Negative) 08/15/18 Unknown Urine Ketones Neg mg/dL (Negative) 08/15/18 Unknown Urine Blood Neg (Negative) 08/15/18 Unknown Urine Nitrite Neg (Negative) 08/15/18 Unknown Ur Reducing Substances Not Reportable 08/15/18 Unknown Urine Bilirubin Neg (Negative) 08/15/18 Unknown Urine Ictotest Not Reportable 08/15/18 Unknown Urine Urobilinogen < 2.0 mg/dL (<2.0) 08/15/18 Unknown Ur Leukocyte Esterase Neg (Negative) 08/15/18 Unknown Urine WBC (Auto) 17.0 /HPF (0.0-6.0) H 08/15/18 Unknown Urine RBC (Auto) 12.0 /HPF (0.0-6.0) 08/15/18 Unknown U Epithel Cells (Auto) 4.0 /HPF (0-13.0) 08/15/18 Unknown Urine Mucus Few /HPF 08/15/18 Unknown Urine HCG, Qual Negative (Negative) 08/15/18 21:16
--- NOTE | 2018-08-18 18:03 | Consultation ---
History of Present Illness Consult date: 08/18/18 Reason for consult: abdominal pain Chief complaint: abdominal pain - History of present illness History of present illness: 47 yo F with lower abdominal pain for the past 1 week. She was seen in the ER on 08/12 and diagnosed with UTI and sent home with antibiotics. She represented to ER with persistent sharp LLQ and suprapubic pain, radiating to the left side and across the back. Pain medication decreases pain. She has been admitted and is being treated with antibiotics. However, she continues to c/o severe abdominal pain, nausea, and inability to eat. She had fevers of 100.4. She has never had symptoms like this before. She denies recent travel or sick contacts. No dysuria. +Diarrhea. +hx of STD. Past History Past Medical History: other (ovarian cysts, fibroids) Past Surgical History: Other (BET TAKER/uterine surgery, 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 denies: smoking, alcohol abuse, prescription drug abuse Family history: hypertension Medications and Allergies Allergies Allergy/AdvReac Type Severity Reaction Status Date / Time fluconazole Allergy Rash Verified 08/12/18 06:34 tramadol AdvReac Headache Verified 08/15/18 19:50 Home Medications Medication Instructions Recorded Confirmed Last Taken Type Sulfamethoxazole/Trimethoprim 1 each PO BID 10 Days #6 tablet 08/12/18 08/15/18 Unknown Rx [Bactrim DS TAB] traMADol [Ultram] 50 mg PO Q6HR PRN #7 tablet 08/12/18 08/15/18 Unknown Rx Active Meds: Active Medications Acetaminophen (Tylenol) 650 mg PO Q4H PRN PRN Reason: Pain MILD(1-3)/Fever >100.5/SARKAR Last Admin: 08/17/18 02:15 Dose: 650 mg Documented by: Famotidine (Pepcid) 20 mg IV BID [facility] Last Admin: 08/18/18 09:09 Dose: 20 mg Documented by: Hydrocortisone Acetate (Proctosol-Hc) 1 applic CO BID [facility] Last Admin: 08/18/18 09:10 Dose: 1 applic Documented by: Hydromorphone HCl (Dilaudid) 1 mg IV Q3H PRN PRN Reason: Pain , Severe (7-10) Last Admin: 08/18/18 14:52 Dose: 1 mg Documented by: Cefepime HCl (Maxipime/Ns 1 Gm/100 Ml) 1 gm in 100 mls @ 200 mls/hr IV Q8H [facility]; Protocol Last Admin: 08/18/18 09:09 Dose: 200 mls/hr Documented by: Piperacillin Sod/Tazobactam Sod (Zosyn/Ns 4.5gm/100ml) 4.5 gm in 100 mls @ 200 mls/hr IV Q8HR [facility]; Protocol Ketorolac Tromethamine (Toradol) 30 mg IV Q8H PRN PRN Reason: Pain, Moderate (4-6) Stop: 08/21/18 13:06 Last Admin: 08/18/18 09:24 Dose: 30 mg Documented by: Lidocaine HCl (Xylocaine Topical 2% 5ml) 1 applic TP Q2H PRN PRN Reason: RECTAL PAIN Last Admin: 08/17/18 17:11 Dose: 1 applic Documented by: Metoclopramide HCl (Reglan) 10 mg IV Q6H PRN PRN Reason: Nausea And Vomiting Last Admin: 08/18/18 12:47 Dose: 10 mg Documented by: Morphine Sulfate (Morphine) 2 mg IV Q4H PRN PRN Reason: Pain, Moderate (4-6) Last Admin: 08/17/18 17:12 Dose: 2 mg Documented by: Ondansetron HCl (Zofran) 4 mg IV Q4H PRN PRN Reason: Nausea And Vomiting Last Admin: 08/18/18 14:52 Dose: 4 mg Documented by: Senna/Docusate Sodium (Senokot S) 1 tab PO QHS [facility] Last Admin: 08/17/18 21:40 Dose: Not Given Documented by: Simethicone (Mylicon) 80 mg PO PC PRN PRN Reason: Gas pain Last Admin: 08/18/18 12:47 Dose: 80 mg Documented by: Sodium Chloride (Sodium Chloride Flush Syringe 10 Ml) 10 ml IV BID [facility] Last Admin: 08/18/18 09:09 Dose: 10 ml Documented by: Sodium Chloride (Sodium Chloride Flush Syringe 10 Ml) 10 ml IV PRN PRN PRN Reason: LINE FLUSH Review of Systems All systems: negative (10 pt ROS performed and negative except for that listed in HPI) Exam Vital Signs Temp Pulse Resp BP Pulse Ox 99 F 106 H 20 127/72 97 08/15/18 19:55 08/15/18 19:55 08/15/18 19:55 08/15/18 19:55 08/15/18 19:55 Narrative exam: Gen: AAOx3. NAD ENT: no scleral icterus or conjunctival pallor CV: s1, s2+ Resp; even and unlabored Abd: soft, ND, + LLQ and suprapubic TTP. no r/r/g. No CV tenderness Ext; no c/c/e Results - Labs 08/18/18 18:14 08/17/18 05:38 - Imaging CT scan - abdomen: report reviewed, image reviewed CT scan - pelvis: report reviewed, image reviewed US - pelvic: report reviewed, image reviewed Assessment and Plan 47 yo F with LLQ pain, likely Tuboovarian abscess Images reviewed independently: Ct scan A/P - large well defined left adnexal fluid collection with thickened wall transvaginal u/s - >7 cm fluid collection in left adnexa containing internal echoes Plan; 1. NPO p MN 2. IVF 3. add zosyn to abx regimen, will d/w with ID in am 4. WBC trending up 5. prn pain control 6. d/w Dr. Singer (BET TAKER) as this is likely left tuboovarian abscess based on hx, clinical presentation, labs, and imaging. She recommends consult IR to evaluate for percutaneous drainage of abscess since patient wants children and risk of losing tube/ovary with surgery is high. 7. Dr. Singer discussed case with Dr. Charles (IR) No acute general surgical intervention. Thank you, please call with questions.
--- NOTE | 2018-08-18 18:15 | Event Note ---
Date: 08/18/18 Contacted for leukocytosis, fever, and high concern for TOA. NPO after MN except meds recommend preop rangel placement to decompress bladder Plan for CT guided drainage tomorrow of TOA.
--- NOTE | 2018-08-18 18:37 | Event Note ---
Date: 08/18/18 Patient was re-examined after concern from Hospitalist. Per our conversation she admitted to Gonorrhea in the past Reviewed US again and Ct scan and noted mass appears TOA Discussed with Dr. Joseph and after reviewing US and CT scan It was decided after discussing with the patient treatment plan I called and spoke with Dr. Charles and he is in agreement to perform CT guided drainage Patient made NPO and rangel placed in am added zosyn for broader coverage D/W Dr. Zhou
[2018-08-18 18:45] LABS: Hematocrit 28.4 % (30.3-42.9); Hemoglobin 9.3 gm/dl (10.1-14.3); Mean Corpuscular HGB Conc 33 % (30-34); Mean Corpuscular Volume 83 fl (79-97); Platelet Count 408 K/mm3 (140-440); Red Blood Count 3.43 M/mm3 (3.65-5.03); Red Cell Distribution Width 15.9 % (13.2-15.2)
[2018-08-18 18:57] LABS: INR 1.23 (0.87-1.13)
[2018-08-18 20:16] LABS: Basophils % (Manual) 0 % (0.0-1.8); RBC Morphology Normal; Total Cells Counted 100
[2018-08-18] MEDS: ZOSYN/NS 4.5GM/100ML 4.5 GM/100 ML VIAL IV SCH (21:32)
[2018-08-18] MEDS ORDERED: BENADRYL IV ONE (23:18)
[2018-08-19] MEDS: DILAUDID IV PRN ×3 (00:12→21:28)
[2018-08-19] MEDS: SENOKOT S PO SCH ×3 (00:35→21:46)
[2018-08-19] MEDS: PROCTOSOL-HC PR SCH ×3 (00:36→21:38)
[2018-08-19 01:08] LABS: Hematocrit 26.3 % (30.3-42.9); Hemoglobin 8.6 gm/dl (10.1-14.3); Mean Corpuscular HGB Conc 33 % (30-34); Mean Corpuscular Volume 82 fl (79-97); Platelet Count 367 K/mm3 (140-440); Red Blood Count 3.22 M/mm3 (3.65-5.03); Red Cell Distribution Width 15.5 % (13.2-15.2)
[2018-08-19 03:52] LABS: Basophils % (Manual) 0 % (0.0-1.8); Myelocytes # (Manual) 0.5 K/mm3; Total Cells Counted 100
[2018-08-19 03:55] LABS: Anisocytosis 1+; Ovalocytes 1+; Poikilocytosis 1+
[2018-08-19 03:58] LABS: Platelet Estimate Consistent w Auto
[2018-08-19] MEDS: TORADOL IV PRN ×2 (04:21→16:40)
[2018-08-19] MEDS: ZOSYN/NS 4.5GM/100ML 4.5 GM/100 ML VIAL IV SCH ×3 (06:52→21:28)
--- NOTE | 2018-08-19 08:16 | Ultrasound Report ---
ULTRASOUND RENAL BILATERAL HISTORY: UTI, fever, abdominal pain. TECHNIQUE: transabdominal ultrasound with color Doppler interrogation. FINDINGS: Scans of the kidneys show normal renal contours. There is normal central calyceal clustering and good preservation of the cortical thickness. There is no evidence of mass or hydronephrosis. The views of the bladder and the region of the ureters appear normal. IMPRESSION: Unremarkable renal ultrasound.
[2018-08-19] MEDS ORDERED: VERSED IV NR (09:00)
[2018-08-19] MEDS ORDERED: SUBLIMAZE IV NR (09:00)
[2018-08-19] MEDS ORDERED: NACL 0.9% 500 ML 0 ML ONE (09:21)
[2018-08-19] MEDS ORDERED: VERSED IV ONE (09:21)
[2018-08-19] MEDS ORDERED: SUBLIMAZE ONE (09:21)
[2018-08-19] MEDS ORDERED: XYLOCAINE 1%/ EPI 1:100,000 INFILTRATI ONE (10:41)
--- NOTE | 2018-08-19 10:50 | Progress Note ---
Assessment and Plan Cultures: 08/15/2018 blood culture: No growth A/P: 47/F with h/o fibroids admitted with: 1) Low-grade fevers and leukocytosis: Improved, still leukocytosis. related to left tuboovarian abscess vs ovarian cyst versus endometrioma on the right side. s/p drainage of 100 mL of pinkish/brown fluid removed from the cystic mass. Sent for culture and cytology. 2) Leucocytosis: probably reactive from above. Will switch to Zosyn and Doxycyline. 3) Thrombosed hemorroid: GI following. Recent viral gastroenteritis. 4) Diarrhea: C-Diff culture ordered Recs: - Discontinue Cefepime -Start Zosyn and Doxycycline -f/u OR cultures [facility] M: [id number] O:[phone] Subjective Date of service: 08/19/18 Principal diagnosis: thrombosed hemorrhoid Interval history: Patient seen and examined. Generalized pain and weakness. No fevers. Objective - Exam Narrative Exam: Constitutional: Alert, cooperative. Generalized weakness. Head, Ears, Nose: Normocephalic, atraumatic. External ears, nose normal Eyes: Conjunctivae/corneas clear. No icterus. No ptosis. Neck: Supple, no meningeal signs Oral: dentition fair, no thrush Cardiovascular: S1, S2 normal. Respiratory: Good air entry, clear to auscultation bilaterally GI: Soft, lower abdominal tenderness; s/p fluid removed from the cystic mass, + drain Musculoskeletal: No pedal edema, no cyanosis. Skin: No rash or abscess Hem/Lymphatic: No palpable cervical or supraclavicular nodes. No lymphangitis Psych: Mood ok. Affect normal Neurological: Awake, alert, oriented. No gross abnormality - Constitutional Vitals: Vital Signs Temp Pulse Resp BP Pulse Ox 98.8 F 75 11 L 135/77 100 08/19/18 05:25 08/19/18 10:36 08/19/18 10:36 08/19/18 10:36 08/19/18 10:36 Temperature -Last 24 Hours Temperature 98.8 F Temperature 99.5 F Temperature 98.6 F - Labs CBC & Chem 7: 08/19/18 00:16 08/17/18 05:38 Labs: Abnormal lab results 08/18/18 08/18/18 08/19/18 Range/Units 18:14 18:14 00:16 WBC 20.2 H 17.4 H (4.5-11.0) K/mm3 RBC 3.43 L 3.22 L (3.65-5.03) M/mm3 Hgb 9.3 L 8.6 L (10.1-14.3) gm/dl Hct 28.4 L 26.3 L (30.3-42.9) % MCH 27 L 27 L (28-32) pg RDW 15.9 H 15.5 H (13.2-15.2) % Seg Neuts % (Manual) 87.0 H 87.0 H (40.0-70.0) % Lymphocytes % (Manual) 7.0 L 6.0 L (13.4-35.0) % Seg Neutrophils # Man 17.6 H 15.1 H (1.8-7.7) K/mm3 Lymphocytes # (Manual) 1.0 L (1.2-5.4) K/mm3 Monocytes # (Manual) 1.0 H (0.0-0.8) K/mm3 PT 16.3 H (12.2-14.9) Sec. INR 1.23 H (0.87-1.13)
--- NOTE | 2018-08-19 11:24 | Post Operative Note ---
Date of procedure: 08/19/18 Pre-op diagnosis: Left cystic mass in the pelvic with leukocytosis and fever Post-op diagnosis: same Findings: 100 mL of pinkish/brown fluid removed from the cystic mass. ?endometrioma vs TOA. Sent for culture and cytology. Procedure: CT guided drainage of the left suspected TOA Anesthesia: local (w/ conscious sedation) Surgeon: ROGER OBREGON Estimated blood loss: minimal Condition: stable Disposition: floor
--- NOTE | 2018-08-19 11:48 | Event Note ---
Date: 08/19/18 Patient s/p Ct guided drainage of left adnexal fluid collection by Dr. Charles. Endometrioma suspected. Cultures sent. Will defer further management to [employer]. Will s/o.
--- NOTE | 2018-08-19 12:23 | Progress Note ---
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 She had CT abd/pelvis with iv contrast (see below). She was diagnosis with AGE, UTI and Ovarian cyst. She was sent home on Bactrim, naprosyn, tram adol, and zofran ODT. She comes back on 08/15/18 with worsening symptoms including rectal pain. ED physician found external hemorrhoids and told patient they were thrombosed and treated with topical lidocaine. Patient admitted to inpatient due to failing outpatient therapy. * (prior visit) CT abd/pelvis with IV contrast FINDINGS: Lung bases: Normal. Liver: Normal. Biliary system: Normal. Pancreas: Normal. Spleen: Normal. Kidneys/ureters/bladder: Normal. Adrenal glands: Normal. Aorta: Normal. Int estines: Within normal limits given no oral contrast was administered. Appendix: Not confidently identified, correlate with surgical history. Pelvic viscera: Multiple hypoechoic uterine masses are identified ranging from 1-4 cm in diameter which presumably represent uterine fibroids. There is a large cyst in the left adnexa measuring 6.5 x 6.6 cm. This presumably represents a large ovarian cyst. There is also a 3.8 x 1.8 cm cyst in the right adnexa. Ascites: None. Adenopathy: None. Musculoskeletal: Normal. IMPRESSION: Uterine fibroid disease. Bilateral adnexal cysts which presumably represent ovarian cysts. Please * US transvaginal/pelvic IMPRESSION: 2 uterine fibroids are identified. There is right adnexal mass measuring 5.6 cm. This could be a hemorrhagic ovarian cyst or endometrioma.. There is no ovarian torsion. The left ovary is not seen. There is no free fluid. -UTI with sepsis: treat with abx, await urine culture, get renal u/s to rule out pyelonephritis and consulted ID -Anemia, drop in HCT: stop lovenox, repeat cbc in am -Hemorrhoids, ?thrombosed external: consulted GI -Bilateral adnexal mass, most likely ovarian cyst: consulted and d/w battery test engineer, Dr. Karley Singer who recommends renal u/s -DVT prophylaxis: scd for now Going for IR drain of the left cyst. History Interval history: Patient was seen and examined. Follow-up on current diagnosis of UTI. Overnight uneventful. Patient denies any chest pain, shortness breath, nausea/vomiting or severe headaches. Imaging, nursing note, chart, labs and old chart reviewed. Discussed with patient. Hospitalist Physical - Physical exam Narrative exam: GEN: ill NAD, Awake, Alert, Orientated HEENT: NCAT, EOMI, PERRL, OP Clear NECK: supple, no adenopathy, no thyromegaly, no JVD CVS/HEART: RRR, normal S1S2, pulses present bilaterally CHEST/LUNGS: CTA B, Symmetrical chest expansion, good air entry bilaterally GI/Abdomen: soft, NTND, good bowel sounds, no guarding or rebound /Bladder: + suprapubic tenderness, no CVA or paraspinal tenderness EXT/Skin: no c/c/e, no obvious rash MSK: FROM x 4 Neuro: CN 2-12 grossly intact, no new focal deficits Psych: calm - Constitutional Vitals: Temp Pulse Resp BP Pulse Ox 98.8 F 74 13 134/74 100 08/19/18 05:25 08/19/18 11:39 08/19/18 11:39 08/19/18 11:24 08/19/18 11:39 Results - Labs CBC & Chem 7: 08/19/18 00:16 08/17/18 05:38 Labs: Laboratory Last Values WBC 17.4 K/mm3 (4.5-11.0) H 08/19/18 00:16 RBC 3.22 M/mm3 (3.65-5.03) L 08/19/18 00:16 Hgb 8.6 gm/dl (10.1-14.3) L 08/19/18 00:16 Hct 26.3 % (30.3-42.9) L 08/19/18 00:16 MCV 82 fl (79-97) 08/19/18 00:16 MCH 27 pg (28-32) L 08/19/18 00:16 MCHC 33 % (30-34) 08/19/18 00:16 RDW 15.5 % (13.2-15.2) H 08/19/18 00:16 Plt Count 367 K/mm3 (140-440) 08/19/18 00:16 Add Manual Diff Complete 08/19/18 00:16 Total Counted 100 08/19/18 00:16 Seg Neuts % (Manual) 87.0 % (40.0-70.0) H 08/19/18 00:16 Band Neutrophils % 0 % 08/19/18 00:16 Lymphocytes % (Manual) 6.0 % (13.4-35.0) L 08/19/18 00:16 Reactive Lymphs % (Man) 0 % 08/19/18 00:16 Monocytes % (Manual) 3.0 % (0.0-7.3) 08/19/18 00:16 Eosinophils % (Manual) 1.0 % (0.0-4.3) 08/19/18 00:16 Basophils % (Manual) 0 % (0.0-1.8) 08/19/18 00:16 Metamyelocytes % 0 % 08/19/18 00:16 Myelocytes % 3.0 % 08/19/18 00:16 Promyelocytes % 0 % 08/19/18 00:16 Blast Cells % 0 % 08/19/18 00:16 Nucleated RBC % Not Reportable 08/19/18 00:16 Seg Neutrophils # Man 15.1 K/mm3 (1.8-7.7) H 08/19/18 00:16 Band Neutrophils # 0.0 K/mm3 08/19/18 00:16 Lymphocytes # (Manual) 1.0 K/mm3 (1.2-5.4) L 08/19/18 00:16 Abs React Lymphs (Man) 0.0 K/mm3 08/19/18 00:16 Monocytes # (Manual) 0.5 K/mm3 (0.0-0.8) 08/19/18 00:16 Eosinophils # (Manual) 0.2 K/mm3 (0.0-0.4) 08/19/18 00:16 Basophils # (Manual) 0.0 K/mm3 (0.0-0.1) 08/19/18 00:16 Metamyelocytes # 0.0 K/mm3 08/19/18 00:16 Myelocytes # 0.5 K/mm3 08/19/18 00:16 Promyelocytes # 0.0 K/mm3 08/19/18 00:16 Blast Cells # 0.0 K/mm3 08/19/18 00:16 WBC Morphology Not Reportable 08/19/18 00:16 Hypersegmented Neuts Not Reportable 08/19/18 00:16 Hyposegmented Neuts Not Reportable 08/19/18 00:16 Hypogranular Neuts Not Reportable 08/19/18 00:16 Smudge Cells Not Reportable 08/19/18 00:16 Toxic Granulation Not Reportable 08/19/18 00:16 Toxic Vacuolation Not Reportable 08/19/18 00:16 Dohle Bodies Not Reportable 08/19/18 00:16 Pelger-Huet Anomaly Not Reportable 08/19/18 00:16 Dreeck Rods Not Reportable 08/19/18 00:16 Platelet Estimate Consistent w auto 08/19/18 00:16 Clumped Platelets Not Reportable 08/19/18 00:16 Plt Clumps, EDTA Not Reportable 08/19/18 00:16 Large Platelets Not Reportable 08/19/18 00:16 Giant Platelets Not Reportable 08/19/18 00:16 Platelet Satelliting Not Reportable 08/19/18 00:16 Plt Morphology Comment Not Reportable 08/19/18 00:16 RBC Morphology Not Reportable 08/19/18 00:16 Dimorphic RBCs Not Reportable 08/19/18 00:16 Polychromasia Not Reportable 08/19/18 00:16 Hypochromasia Not Reportable 08/19/18 00:16 Poikilocytosis 1+ 08/19/18 00:16 Anisocytosis 1+ 08/19/18 00:16 Microcytosis Not Reportable 08/19/18 00:16 Macrocytosis Not Reportable 08/19/18 00:16 Spherocytes Not Reportable 08/19/18 00:16 Pappenheimer Bodies Not Reportable 08/19/18 00:16 Sickle Cells Not Reportable 08/19/18 00:16 Target Cells Not Reportable 08/19/18 00:16 Tear Drop Cells Not Reportable 08/19/18 00:16 Ovalocytes 1+ 08/19/18 00:16 Helmet Cells Not Reportable 08/19/18 00:16 [place] Bodies Not Reportable 08/19/18 00:16 [place] Rings Not Reportable 08/19/18 00:16 [place] Cells Not Reportable 08/19/18 00:16 Bite Cells Not Reportable 08/19/18 00:16 Crenated Cell Not Reportable 08/19/18 00:16 Elliptocytes 1+ 08/19/18 00:16 Acanthocytes (Spur) Few 08/19/18 00:16 Rouleaux Not Reportable 08/19/18 00:16 Hemoglobin C Crystals Not Reportable 08/19/18 00:16 Schistocytes Not Reportable 08/19/18 00:16 Malaria parasites Not Reportable 08/19/18 00:16 [place] Bodies Not Reportable 08/19/18 00:16 Hem Pathologist Commnt No 08/19/18 00:16 PT 16.3 Sec. (12.2-14.9) H 08/18/18 18:14 INR 1.23 (0.87-1.13) H 08/18/18 18:14 Sodium 139 mmol/L (137-145) 08/17/18 05:38 Potassium 3.4 mmol/L (3.6-5.0) L 08/17/18 05:38 Chloride 104.2 mmol/L (98-107) 08/17/18 05:38 Carbon Dioxide 21 mmol/L (22-30) L 08/17/18 05:38 Anion Gap 17 mmol/L 08/17/18 05:38 BUN 3 mg/dL (7-17) L 08/17/18 05:38 Creatinine 0.5 mg/dL (0.7-1.2) L 08/17/18 05:38 Estimated GFR > 60 ml/min 08/17/18 05:38 BUN/Creatinine Ratio 6 % 08/17/18 05:38 Glucose 89 mg/dL (65-100) 08/17/18 05:38 Calcium 7.6 mg/dL (8.4-10.2) L 08/17/18 05:38 Total Bilirubin 0.20 mg/dL (0.1-1.2) 08/15/18 20:20 AST 11 units/L (5-40) 08/15/18 20:20 ALT 11 units/L (7-56) 08/15/18 20:20 Alkaline Phosphatase 94 units/L (35-129) 08/15/18 20:20 Total Protein 7.7 g/dL (6.3-8.2) 08/15/18 20:20 Albumin 3.4 g/dL (3.9-5) L 08/15/18 20:20 Albumin/Globulin Ratio 0.8 % 08/15/18 20:20 Lipase 14 units/L (13-60) 08/15/18 20:20 Urine Color Yellow (Yellow) 08/15/18 Unknown Urine Turbidity Clear (Clear) 08/15/18 Unknown Urine pH 6.0 (5.0-7.0) 08/15/18 Unknown Ur Specific [place] 1.027 (1.003-1.030) 08/15/18 Unknown Urine Protein <15 mg/dl mg/dL (Negative) 08/15/18 Unknown Urine Glucose (UA) Neg mg/dL (Negative) 08/15/18 Unknown Urine Ketones Neg mg/dL (Negative) 08/15/18 Unknown Urine Blood Neg (Negative) 08/15/18 Unknown Urine Nitrite Neg (Negative) 08/15/18 Unknown Ur Reducing Substances Not Reportable 08/15/18 Unknown Urine Bilirubin Neg (Negative) 08/15/18 Unknown Urine Ictotest Not Reportable 08/15/18 Unknown Urine Urobilinogen < 2.0 mg/dL (<2.0) 08/15/18 Unknown Ur Leukocyte Esterase Neg (Negative) 08/15/18 Unknown Urine WBC (Auto) 17.0 /HPF (0.0-6.0) H 08/15/18 Unknown Urine RBC (Auto) 12.0 /HPF (0.0-6.0) 08/15/18 Unknown U Epithel Cells (Auto) 4.0 /HPF (0-13.0) 08/15/18 Unknown Urine Mucus Few /HPF 08/15/18 Unknown Urine HCG, Qual Negative (Negative) 08/15/18 21:16
[2018-08-19] MEDS: PEPCID IV SCH ×2 (13:21→21:28)
[2018-08-19] MEDS: ZOFRAN IV PRN (13:31)
[2018-08-19] MEDS ORDERED: VIBRAMYCIN PO SCH (14:00)
[2018-08-19] MEDS: SODIUM CHLORIDE FLUSH SYRINGE 10 ML IV SCH ×2 (18:13→21:29)
[2018-08-19] MEDS: VIBRAMYCIN PO SCH (18:25)
--- NOTE | 2018-08-20 02:45 | Progress Note ---
Assessment and Plan A/P Endometrioma vs TOA s/p drainage: culture and pathology results pending appreciate ID consult : tx for toa added doxy appreciate IR Procedure continue with WBC following patient pain has decreased continue pain meds will continue to follow Subjective - Subjective Date of service: 08/20/18 Principal diagnosis: s/p IR drainage of cyst Interval history: 47-year-old history of fibroids comes emergency room on 08/12 and was diagnosed with gastroenteritis and urinary tract infection, discharged on Bactrim. She returned to the emergency room today with complaints of fever, persistent nausea, increased pain in her pelvic area and left side pain. Also complaining of a pressure in her rectum Patient reports: appetite normal, voiding normally, pain well controlled, ambulating normally Objective - Vital Signs Latest vital signs: Vital Signs Temp Pulse Pulse Pulse Pulse Resp Resp 08/19/18 23:53 98.3 F 79 18 08/19/18 22:00 17 08/19/18 21:58 17 08/19/18 21:28 17 08/19/18 20:26 08/19/18 17:05 84 08/19/18 17:01 98.3 F 20 08/19/18 12:42 98.4 F 79 19 08/19/18 11:39 74 08/19/18 11:24 76 08/19/18 11:13 14 08/19/18 11:09 75 08/19/18 11:06 74 08/19/18 11:01 77 08/19/18 10:56 81 08/19/18 10:51 83 08/19/18 10:46 80 08/19/18 10:43 18 08/19/18 10:41 73 08/19/18 10:36 75 08/19/18 10:21 73 08/19/18 05:25 98.8 F 90 18 08/19/18 04:21 20 Resp Resp Resp BP BP BP BP 08/19/18 23:53 112/60 08/19/18 22:00 08/19/18 21:58 08/19/18 21:28 08/19/18 20:26 08/19/18 17:05 08/19/18 17:01 122/72 08/19/18 12:42 122/65 08/19/18 11:39 13 08/19/18 11:24 10 L 134/74 08/19/18 11:13 08/19/18 11:09 13 128/73 08/19/18 11:06 12 130/75 08/19/18 11:01 15 123/73 08/19/18 10:56 13 130/80 08/19/18 10:51 14 129/76 08/19/18 10:46 14 122/66 08/19/18 10:43 08/19/18 10:41 13 126/72 08/19/18 10:36 11 L 135/77 08/19/18 10:21 12 127/78 08/19/18 05:25 98/48 08/19/18 04:21 Pulse Ox Pulse Ox Pulse Ox Pulse Ox 08/19/18 23:53 96 08/19/18 22:00 08/19/18 21:58 08/19/18 21:28 08/19/18 20:26 97 08/19/18 17:05 98 08/19/18 17:01 08/19/18 12:42 99 08/19/18 11:39 100 08/19/18 11:24 100 08/19/18 11:13 08/19/18 11:09 100 08/19/18 11:06 99 08/19/18 11:01 99 08/19/18 10:56 100 08/19/18 10:51 99 08/19/18 10:46 96 08/19/18 10:43 08/19/18 10:41 97 08/19/18 10:36 100 08/19/18 10:21 100 08/19/18 05:25 97 08/19/18 04:21 Intake and Output 08/19/18 08/19/18 08/20/18 15:59 23:59 07:59 Intake Total 100 840 Output Total 780 Balance -680 840 Intake: IV 100 ZOSYN/NS 4.5GM/100ML 4.5 100 gm In 100 ml @ 200 mls/hr IV Q8HR [facility] Rx#: [id number] Oral 840 Output: Urine 700 Indwelling Catheter 700 Other 80 Other: Total, Intake Amount 360 Total, Output Amount 780 Voiding Method Toilet # Voids Indwelling Catheter 1 - Exam Breasts: Present: deferred, normal Cardiovascular: Present: Regular rate, Normal S1 Lungs: Present: Clear to auscultation, Normal air movement Abdomen: Present: normal appearance, soft, normal bowel sounds. Absent: distention, tenderness, guarding Uterus: Present: normal. Absent: bogginess, tenderness Extremities: Present: normal Deep Tendon Reflex Grade: Normal +2 Incision: Present: normal - Labs Labs: Abnormal lab results 08/19/18 Range/Units 00:16 Seg Neuts % (Manual) 87.0 H (40.0-70.0) % Lymphocytes % (Manual) 6.0 L (13.4-35.0) % Seg Neutrophils # Man 15.1 H (1.8-7.7) K/mm3 Lymphocytes # (Manual) 1.0 L (1.2-5.4) K/mm3
[2018-08-20] MEDS: DILAUDID IV PRN ×4 (04:19→23:06)
[2018-08-20] MEDS: VIBRAMYCIN PO SCH ×2 (05:51→17:35)
[2018-08-20] MEDS: ZOSYN/NS 4.5GM/100ML 4.5 GM/100 ML VIAL IV SCH ×3 (05:52→23:08)
--- NOTE | 2018-08-20 08:36 | Progress Note ---
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 She had CT abd/pelvis with iv contrast (see below). She was diagnosis with AGE, UTI and Ovarian cyst. She was sent home on Bactrim, naprosyn, tra madol, and zofran ODT. She came back on 08/15/18 with worsening symptoms including rectal pain. ED physician found external hemorrhoids and told patient they were thrombosed and treated with topical lidocaine. Patient admitted to inpatient due to failing outpatient therapy. * (prior visit) CT abd/pelvis with IV contrast FINDINGS: Lung bases: Normal. Liver: Normal. Biliary system: Normal. Pancreas: Normal. Spleen: Normal. Kidneys/ureters/bladder: Normal. Adrenal glands: Normal. Aorta: Normal. Int estines: Within normal limits given no oral contrast was administered. Appendix: Not confidently identified, correlate with surgical history. Pelvic viscera: Multiple hypoechoic uterine masses are identified ranging from 1-4 cm in diameter which presumably represent uterine fibroids. There is a large cyst in the left adnexa measuring 6.5 x 6.6 cm. This presumably represents a large ovarian cyst. There is also a 3.8 x 1.8 cm cyst in the right adnexa. Ascites: None. Adenopathy: None. Musculoskeletal: Normal. IMPRESSION: Uterine fibroid disease. Bilateral adnexal cysts which presumably represent ovarian cysts. Please * US transvaginal/pelvic IMPRESSION: 2 uterine fibroids are identified. There is right adnexal mass measuring 5.6 cm. This could be a hemorrhagic ovarian cyst or endometrioma.. There is no ovarian torsion. The left ovary is not seen. There is no free fluid. -Sepsis most likely from TOA/infected endometrioma s/p IR drainage on 08/19/18, awaiting cultures, drain to be removed today: continue iv abx, following cultures, ID, advisory intern following -UTI unlikely, see above. -Anemia, drop in HCT: stop lovenox, monitoring cbc in am -Hemorrhoids, no thrombosed external: GI evaluation -DVT prophylaxis: scd for now History Interval history: Patient was seen and examined. Follow-up on current diagnosis of TOA, abd pains much better. Overnight uneventful. Patient denies any chest pain, shortness breath, nausea/vomiting or severe headaches. Imaging, nursing note, chart, labs and old chart reviewed. Discussed with patient. Hospitalist Physical - Physical exam Narrative exam: GEN: ill NAD, Awake, Alert, Orientated HEENT: NCAT, EOMI, PERRL, OP Clear NECK: supple, no adenopathy, no thyromegaly, no JVD CVS/HEART: RRR, normal S1S2, pulses present bilaterally CHEST/LUNGS: CTA B, Symmetrical chest expansion, good air entry bilaterally GI/Abdomen: soft, LLQ tenderness less, good bowel sounds, no guarding or rebound /Bladder: + suprapubic tenderness, no CVA or paraspinal tenderness EXT/Skin: no c/c/e, no obvious rash MSK: FROM x 4 Neuro: CN 2-12 grossly intact, no new focal deficits Psych: calm - Constitutional Vitals: Temp Pulse Resp BP Pulse Ox 98.5 F 79 18 116/58 96 08/20/18 05:08 08/20/18 05:08 08/20/18 05:08 08/20/18 05:08 08/20/18 05:08 Results - Labs CBC & Chem 7: 08/20/18 12:25 08/20/18 12:25 Labs: Laboratory Last Values WBC 17.4 K/mm3 (4.5-11.0) H 08/19/18 00:16 RBC 3.22 M/mm3 (3.65-5.03) L 08/19/18 00:16 Hgb 8.6 gm/dl (10.1-14.3) L 08/19/18 00:16 Hct 26.3 % (30.3-42.9) L 08/19/18 00:16 MCV 82 fl (79-97) 08/19/18 00:16 MCH 27 pg (28-32) L 08/19/18 00:16 MCHC 33 % (30-34) 08/19/18 00:16 RDW 15.5 % (13.2-15.2) H 08/19/18 00:16 Plt Count 367 K/mm3 (140-440) 08/19/18 00:16 Add Manual Diff Complete 08/19/18 00:16 Total Counted 100 08/19/18 00:16 Seg Neuts % (Manual) 87.0 % (40.0-70.0) H 08/19/18 00:16 Band Neutrophils % 0 % 08/19/18 00:16 Lymphocytes % (Manual) 6.0 % (13.4-35.0) L 08/19/18 00:16 Reactive Lymphs % (Man) 0 % 08/19/18 00:16 Monocytes % (Manual) 3.0 % (0.0-7.3) 08/19/18 00:16 Eosinophils % (Manual) 1.0 % (0.0-4.3) 08/19/18 00:16 Basophils % (Manual) 0 % (0.0-1.8) 08/19/18 00:16 Metamyelocytes % 0 % 08/19/18 00:16 Myelocytes % 3.0 % 08/19/18 00:16 Promyelocytes % 0 % 08/19/18 00:16 Blast Cells % 0 % 08/19/18 00:16 Nucleated RBC % Not Reportable 08/19/18 00:16 Seg Neutrophils # Man 15.1 K/mm3 (1.8-7.7) H 08/19/18 00:16 Band Neutrophils # 0.0 K/mm3 08/19/18 00:16 Lymphocytes # (Manual) 1.0 K/mm3 (1.2-5.4) L 08/19/18 00:16 Abs React Lymphs (Man) 0.0 K/mm3 08/19/18 00:16 Monocytes # (Manual) 0.5 K/mm3 (0.0-0.8) 08/19/18 00:16 Eosinophils # (Manual) 0.2 K/mm3 (0.0-0.4) 08/19/18 00:16 Basophils # (Manual) 0.0 K/mm3 (0.0-0.1) 08/19/18 00:16 Metamyelocytes # 0.0 K/mm3 08/19/18 00:16 Myelocytes # 0.5 K/mm3 08/19/18 00:16 Promyelocytes # 0.0 K/mm3 08/19/18 00:16 Blast Cells # 0.0 K/mm3 08/19/18 00:16 WBC Morphology Not Reportable 08/19/18 00:16 Hypersegmented Neuts Not Reportable 08/19/18 00:16 Hyposegmented Neuts Not Reportable 08/19/18 00:16 Hypogranular Neuts Not Reportable 08/19/18 00:16 Smudge Cells Not Reportable 08/19/18 00:16 Toxic Granulation Not Reportable 08/19/18 00:16 Toxic Vacuolation Not Reportable 08/19/18 00:16 Dohle Bodies Not Reportable 08/19/18 00:16 Pelger-Huet Anomaly Not Reportable 08/19/18 00:16 Dereck Rods Not Reportable 08/19/18 00:16 Platelet Estimate Consistent w auto 08/19/18 00:16 Clumped Platelets Not Reportable 08/19/18 00:16 Plt Clumps, EDTA Not Reportable 08/19/18 00:16 Large Platelets Not Reportable 08/19/18 00:16 Giant Platelets Not Reportable 08/19/18 00:16 Platelet Satelliting Not Reportable 08/19/18 00:16 Plt Morphology Comment Not Reportable 08/19/18 00:16 RBC Morphology Not Reportable 08/19/18 00:16 Dimorphic RBCs Not Reportable 08/19/18 00:16 Polychromasia Not Reportable 08/19/18 00:16 Hypochromasia Not Reportable 08/19/18 00:16 Poikilocytosis 1+ 08/19/18 00:16 Anisocytosis 1+ 08/19/18 00:16 Microcytosis Not Reportable 08/19/18 00:16 Macrocytosis Not Reportable 08/19/18 00:16 Spherocytes Not Reportable 08/19/18 00:16 Pappenheimer Bodies Not Reportable 08/19/18 00:16 Sickle Cells Not Reportable 08/19/18 00:16 Target Cells Not Reportable 08/19/18 00:16 Tear Drop Cells Not Reportable 08/19/18 00:16 Ovalocytes 1+ 08/19/18 00:16 Helmet Cells Not Reportable 08/19/18 00:16 [place]eman-[place] Bodies Not Reportable 08/19/18 00:16 [place] Rings Not Reportable 08/19/18 00:16 [place] Cells Not Reportable 08/19/18 00:16 Bite Cells Not Reportable 08/19/18 00:16 Crenated Cell Not Reportable 08/19/18 00:16 Elliptocytes 1+ 08/19/18 00:16 Acanthocytes (Spur) Few 08/19/18 00:16 Rouleaux Not Reportable 08/19/18 00:16 Hemoglobin C Crystals Not Reportable 08/19/18 00:16 Schistocytes Not Reportable 08/19/18 00:16 Malaria parasites Not Reportable 08/19/18 00:16 Peyman Bodies Not Reportable 08/19/18 00:16 Hem Pathologist Commnt No 08/19/18 00:16 PT 16.3 Sec. (12.2-14.9) H 08/18/18 18:14 INR 1.23 (0.87-1.13) H 08/18/18 18:14 Sodium 139 mmol/L (137-145) 08/17/18 05:38 Potassium 3.4 mmol/L (3.6-5.0) L 08/17/18 05:38 Chloride 104.2 mmol/L (98-107) 08/17/18 05:38 Carbon Dioxide 21 mmol/L (22-30) L 08/17/18 05:38 Anion Gap 17 mmol/L 08/17/18 05:38 BUN 3 mg/dL (7-17) L 08/17/18 05:38 Creatinine 0.5 mg/dL (0.7-1.2) L 08/17/18 05:38 Estimated GFR > 60 ml/min 08/17/18 05:38 BUN/Creatinine Ratio 6 % 08/17/18 05:38 Glucose 89 mg/dL (65-100) 08/17/18 05:38 Calcium 7.6 mg/dL (8.4-10.2) L 08/17/18 05:38 Total Bilirubin 0.20 mg/dL (0.1-1.2) 08/15/18 20:20 AST 11 units/L (5-40) 08/15/18 20:20 ALT 11 units/L (7-56) 08/15/18 20:20 Alkaline Phosphatase 94 units/L (35-129) 08/15/18 20:20 Total Protein 7.7 g/dL (6.3-8.2) 08/15/18 20:20 Albumin 3.4 g/dL (3.9-5) L 08/15/18 20:20 Albumin/Globulin Ratio 0.8 % 08/15/18 20:20 Lipase 14 units/L (13-60) 08/15/18 20:20 Urine Color Yellow (Yellow) 08/15/18 Unknown Urine Turbidity Clear (Clear) 08/15/18 Unknown Urine pH 6.0 (5.0-7.0) 08/15/18 Unknown Ur Specific [place] 1.027 (1.003-1.030) 08/15/18 Unknown Urine Protein <15 mg/dl mg/dL (Negative) 08/15/18 Unknown Urine Glucose (UA) Neg mg/dL (Negative) 08/15/18 Unknown Urine Ketones Neg mg/dL (Negative) 08/15/18 Unknown Urine Blood Neg (Negative) 08/15/18 Unknown Urine Nitrite Neg (Negative) 08/15/18 Unknown Ur Reducing Substances Not Reportable 08/15/18 Unknown Urine Bilirubin Neg (Negative) 08/15/18 Unknown Urine Ictotest Not Reportable 08/15/18 Unknown Urine Urobilinogen < 2.0 mg/dL (<2.0) 08/15/18 Unknown Ur Leukocyte Esterase Neg (Negative) 08/15/18 Unknown Urine WBC (Auto) 17.0 /HPF (0.0-6.0) H 08/15/18 Unknown Urine RBC (Auto) 12.0 /HPF (0.0-6.0) 08/15/18 Unknown U Epithel Cells (Auto) 4.0 /HPF (0-13.0) 08/15/18 Unknown Urine Mucus Few /HPF 08/15/18 Unknown Urine HCG, Qual Negative (Negative) 08/15/18 21:16
[2018-08-20] MEDS: PEPCID IV SCH ×2 (09:23→23:06)
[2018-08-20] MEDS: PROCTOSOL-HC PR SCH ×2 (09:28→23:14)
[2018-08-20] MEDS: SODIUM CHLORIDE FLUSH SYRINGE 10 ML IV SCH ×2 (09:29→23:08)
[2018-08-20] MEDS: MORPHINE IV PRN (09:35)
--- NOTE | 2018-08-20 11:04 | Progress Note ---
Assessment and Plan Cultures: 08/15/2018 blood : No growth 08/19/2018 surgical: No growth thus far A/P: 47/F with h/o fibroids admitted with: 1) Low-grade fevers and leukocytosis: Improved, still leukocytosis. related to left tuboovarian abscess vs ovarian cyst versus endometrioma on the right side. s/p drainage of 100 mL of pinkish/brown fluid removed from the cystic mass. Sent for culture and cytology. 2) Leucocytosis: reactive from above. Will switch to Zosyn and Doxycyline. 3) Thrombosed hemorroid: GI following. Recent viral gastroenteritis. 4) Diarrhea: resolved Recs: -Continue Zosyn, D3 - Continue Doxycycline, D2 -f/u OR cultures Dr. Mathis will be senior publications specialist this weekend, , please call for questions. [facility] M: [id number] O:[phone] Subjective Date of service: 08/20/18 Principal diagnosis: s/p IR drainage of cyst Interval history: Patient seen and examined. Up walking around the room, states that she is feeling better. No fevers. Objective - Exam Narrative Exam: Constitutional: Alert, cooperative. No acute distress Head, Ears, Nose: Normocephalic, atraumatic. External ears, nose normal Eyes: Conjunctivae/corneas clear. No icterus. No ptosis. Neck: Supple, no meningeal signs Oral: dentition fair, no thrush Cardiovascular: S1, S2 normal. Respiratory: Good air entry, clear to auscultation bilaterally GI: Soft, lower abdominal tenderness; s/p fluid removed from the cystic mass, + drain Musculoskeletal: No pedal edema, no cyanosis. Skin: No rash or abscess Hem/Lymphatic: No palpable cervical or supraclavicular nodes. No lymphangitis Psych: Mood ok. Affect normal Neurological: Awake, alert, oriented. No gross abnormality - Constitutional Vitals: Vital Signs Temp Pulse Resp BP Pulse Ox 98.5 F 79 18 116/58 96 08/20/18 05:08 08/20/18 05:08 08/20/18 05:08 08/20/18 05:08 08/20/18 05:08 Temperature -Last 24 Hours Temperature 98.5 F Temperature 98.3 F Temperature 98.3 F Temperature 98.4 F - Labs CBC & Chem 7: 08/20/18 12:25 08/20/18 12:25
[2018-08-20 12:44] LABS: Hematocrit 27.4 % (30.3-42.9); Mean Corpuscular HGB Conc 33 % (30-34); Mean Corpuscular Volume 83 fl (79-97); Platelet Count 412 K/mm3 (140-440); Red Blood Count 3.32 M/mm3 (3.65-5.03); Red Cell Distribution Width 15.6 % (13.2-15.2)
[2018-08-20 13:00] LABS: BUN/Creatinine Ratio 4; Blood Urea Nitrogen 2 mg/dL (7-17); Calcium 7.8 mg/dL (8.4-10.2); Hemolysis Index 5
--- NOTE | 2018-08-20 14:05 | Progress Note ---
Assessment and Plan - Patient Problems (1) Tubo-ovarian abscess Current Visit: Yes Status: Acute Plan to address problem: demonstrating clinical improvement continue antibiotic regimen awaiting final microbiology from specimen supportive care Subjective - Subjective Date of service: 08/20/18 Principal diagnosis: s/p IR drainage of cyst Interval history: Patient reports improvement in symptoms. Drain removed today. Patient has had improvement in wbcs and is currently afebrile. Objective - Vital Signs Latest vital signs: Vital Signs Temp Pulse Resp Resp BP Pulse Ox 08/20/18 05:08 98.5 F 79 18 116/58 96 08/20/18 04:49 17 08/20/18 04:19 17 08/19/18 23:53 98.3 F 79 18 112/60 96 08/19/18 22:00 17 08/19/18 21:58 17 08/19/18 21:28 17 08/19/18 20:26 97 08/19/18 17:05 84 98 08/19/18 17:01 98.3 F 20 122/72 Intake and Output 08/19/18 08/20/18 08/20/18 22:59 06:59 14:59 Intake Total 940 100 Balance 940 100 Intake: IV 100 100 ZOSYN/NS 4.5GM/100ML 4.5 100 100 gm In 100 ml @ 200 mls/hr IV Q8HR [facility] Rx#: [id number] Oral 840 Other: Total, Intake Amount 360 Voiding Method Toilet Toilet # Voids Indwelling Catheter 1 Weight 91.2 kg - Exam Abdomen: Present: soft - Labs Labs: Abnormal lab results 08/20/18 08/20/18 Range/Units 12:25 12:25 WBC 12.1 H (4.5-11.0) K/mm3 RBC 3.32 L (3.65-5.03) M/mm3 Hgb 9.0 L (10.1-14.3) gm/dl Hct 27.4 L (30.3-42.9) % MCH 27 L (28-32) pg RDW 15.6 H (13.2-15.2) % Potassium 3.4 L (3.6-5.0) mmol/L BUN 2 L (7-17) mg/dL Creatinine 0.5 L (0.7-1.2) mg/dL Glucose 113 H (65-100) mg/dL Calcium 7.8 L (8.4-10.2) mg/dL
[2018-08-20 14:06] LABS: Total Cells Counted 100
[2018-08-20 14:10] LABS: Anisocytosis 1+; Ovalocytes 1+; Platelet Estimate Consistent w Auto; Poikilocytosis 1+
--- NOTE | 2018-08-20 14:11 | Event Note ---
Date: 08/20/18 Decrease in white blood cell count. Afebrile. Microbiology demonstrates gram- negative rods. 15 mL's of bloody fluid in the drain. Drain removed at bedside without issue. Patient tolerated procedure well. No immediate postprocedure complication. IR signing off.
[2018-08-20] MEDS: ZOFRAN IV PRN (17:39)
[2018-08-20] MEDS: SENOKOT S PO SCH (23:08)
[2018-08-21] MEDS: DILAUDID IV PRN ×4 (04:41→21:54)
[2018-08-21] MEDS: ZOSYN/NS 4.5GM/100ML 4.5 GM/100 ML VIAL IV SCH ×3 (05:02→22:09)
[2018-08-21] MEDS: VIBRAMYCIN PO SCH ×2 (08:47→18:44)
[2018-08-21] MEDS: PEPCID IV SCH ×2 (09:09→21:54)
[2018-08-21] MEDS: SODIUM CHLORIDE FLUSH SYRINGE 10 ML IV SCH ×2 (09:17→21:58)
[2018-08-21 11:29] LABS: Hematocrit 26.8 % (30.3-42.9); Mean Corpuscular HGB Conc 34 % (30-34); Mean Corpuscular Volume 83 fl (79-97); Platelet Count 470 K/mm3 (140-440); Red Blood Count 3.24 M/mm3 (3.65-5.03); Red Cell Distribution Width 15.6 % (13.2-15.2)
[2018-08-21] MEDS: PROCTOSOL-HC PR SCH ×2 (12:36→22:09)
[2018-08-21] MEDS: ZOFRAN IV PRN ×2 (12:45→18:44)
--- NOTE | 2018-08-21 15:06 | Progress Note ---
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 She had CT abd/pelvis with iv contrast (see below). She was diagnosis with AGE, UTI and Ovarian cyst. She was sent home on Bactrim, naprosyn, tra madol, and zofran ODT. She came back on 08/15/18 with worsening symptoms including rectal pain. ED physician found external hemorrhoids and told patient they were thrombosed and treated with topical lidocaine. Patient admitted to inpatient due to failing outpatient therapy. * (prior visit) 08/12/18 CT abd/pelvis with IV contrast FINDINGS: Lung bases: Normal. Liver: Normal. Biliary system: Normal. Pancreas: Normal. Spleen: Normal. Kidneys/ureters/bladder: Normal. Adrenal glands: Normal. Aorta: Norm al. Intestines: Within normal limits given no oral contrast was administered. Appendix: Not confidently identified, correlate with surgical history. Pelvic viscera: Multiple hypoechoic uterine masses are identified ranging from 1-4 cm in diameter which presumably represent uterine fibroids. There is a large cyst in the left adnexa measuring 6.5 x 6.6 cm. This presumably represents a large ovarian cyst. There is also a 3.8 x 1.8 cm cyst in the right adnexa. Ascites: None. Adenopathy: None. Musculoskeletal: Normal. IMPRESSION: Uterine fibroid disease. Bilateral adnexal cysts which presumably represent ovarian cysts. Please * US transvaginal/pelvic IMPRESSION: 2 uterine fibroids are identified. There is right adnexal mass measuring 5.6 cm. This could be a hemorrhagic ovarian cyst or endometrioma.. There is no ovarian torsion. The left ovary is not seen. There is no free fluid. -Sepsis most likely from TOA/infected endometrioma s/p IR drainage on 08/19/18, awaiting cultures, drain to be removed 08/20/18: continue iv abx, following cultures, ID, net application architect following -UTI unlikely, see above. -Anemia, drop in HCT: stop lovenox, monitoring cbc in am -Hemorrhoids, no thrombosed external: GI evaluation -DVT prophylaxis: scd for now Abd culture negative x 48 hours Still with quite of bit LLQ tenderness and appetite still not good. Will repeat CT abd/pelvis History Interval history: Patient was seen and examined. Follow-up on current diagnosis of TOA, abd pains much better. Overnight uneventful. Patient denies any chest pain, shortness breath, nausea/vomiting or severe headaches. Imaging, nursing note, chart, labs and old chart reviewed. Discussed with patient. Hospitalist Physical - Physical exam Narrative exam: GEN: ill NAD, Awake, Alert, Orientated HEENT: NCAT, EOMI, PERRL, OP Clear NECK: supple, no adenopathy, no thyromegaly, no JVD CVS/HEART: RRR, normal S1S2, pulses present bilaterally CHEST/LUNGS: CTA B, Symmetrical chest expansion, good air entry bilaterally GI/Abdomen: soft, LLQ tenderness, good bowel sounds, no guarding or rebound /Bladder: + suprapubic tenderness, no CVA or paraspinal tenderness EXT/Skin: no c/c/e, no obvious rash MSK: FROM x 4 Neuro: CN 2-12 grossly intact, no new focal deficits Psych: calm - Constitutional Vitals: Temp Pulse Resp BP Pulse Ox 98.7 F 80 20 111/61 97 08/21/18 11:48 08/21/18 11:48 08/21/18 11:48 08/21/18 11:48 08/21/18 11:48 Results - Labs CBC & Chem 7: 08/21/18 10:28 08/20/18 12:25 Labs: Laboratory Last Values WBC 11.2 K/mm3 (4.5-11.0) H 08/21/18 10:28 RBC 3.24 M/mm3 (3.65-5.03) L 08/21/18 10:28 Hgb 9.0 gm/dl (10.1-14.3) L 08/21/18 10:28 Hct 26.8 % (30.3-42.9) L 08/21/18 10:28 MCV 83 fl (79-97) 08/21/18 10:28 MCH 28 pg (28-32) 08/21/18 10:28 MCHC 34 % (30-34) 08/21/18 10:28 RDW 15.6 % (13.2-15.2) H 08/21/18 10:28 Plt Count 470 K/mm3 (140-440) H 08/21/18 10:28 Add Manual Diff Complete 08/20/18 12:25 Total Counted 100 08/20/18 12:25 Seg Neuts % (Manual) 78.0 % (40.0-70.0) H 08/20/18 12:25 Band Neutrophils % 0 % 08/20/18 12:25 Lymphocytes % (Manual) 17.0 % (13.4-35.0) 08/20/18 12:25 Reactive Lymphs % (Man) 0 % 08/20/18 12:25 Monocytes % (Manual) 3.0 % (0.0-7.3) 08/20/18 12:25 Eosinophils % (Manual) 1.0 % (0.0-4.3) 08/20/18 12:25 Basophils % (Manual) 1.0 % (0.0-1.8) 08/20/18 12:25 Metamyelocytes % 0 % 08/20/18 12:25 Myelocytes % 0 % 08/20/18 12:25 Promyelocytes % 0 % 08/20/18 12:25 Blast Cells % 0 % 08/20/18 12:25 Nucleated RBC % Not Reportable 08/20/18 12:25 Seg Neutrophils # Man 9.4 K/mm3 (1.8-7.7) H 08/20/18 12:25 Band Neutrophils # 0.0 K/mm3 08/20/18 12:25 Lymphocytes # (Manual) 2.1 K/mm3 (1.2-5.4) 08/20/18 12:25 Abs React Lymphs (Man) 0.0 K/mm3 08/20/18 12:25 Monocytes # (Manual) 0.4 K/mm3 (0.0-0.8) 08/20/18 12:25 Eosinophils # (Manual) 0.1 K/mm3 (0.0-0.4) 08/20/18 12:25 Basophils # (Manual) 0.1 K/mm3 (0.0-0.1) 08/20/18 12:25 Metamyelocytes # 0.0 K/mm3 08/20/18 12:25 Myelocytes # 0.0 K/mm3 08/20/18 12:25 Promyelocytes # 0.0 K/mm3 08/20/18 12:25 Blast Cells # 0.0 K/mm3 08/20/18 12:25 WBC Morphology Not Reportable 08/20/18 12:25 Hypersegmented Neuts Not Reportable 08/20/18 12:25 Hyposegmented Neuts Not Reportable 08/20/18 12:25 Hypogranular Neuts Not Reportable 08/20/18 12:25 Smudge Cells Not Reportable 08/20/18 12:25 Toxic Granulation Not Reportable 08/20/18 12:25 Toxic Vacuolation Not Reportable 08/20/18 12:25 Dohle Bodies Not Reportable 08/20/18 12:25 Pelger-Huet Anomaly Not Reportable 08/20/18 12:25 Dereck Rods Not Reportable 08/20/18 12:25 Platelet Estimate Consistent w auto 08/20/18 12:25 Clumped Platelets Not Reportable 08/20/18 12:25 Plt Clumps, EDTA Not Reportable 08/20/18 12:25 Large Platelets Not Reportable 08/20/18 12:25 Giant Platelets Not Reportable 08/20/18 12:25 Platelet Satelliting Not Reportable 08/20/18 12:25 Plt Morphology Comment Not Reportable 08/20/18 12:25 RBC Morphology Not Reportable 08/20/18 12:25 Dimorphic RBCs Not Reportable 08/20/18 12:25 Polychromasia Not Reportable 08/20/18 12:25 Hypochromasia Not Reportable 08/20/18 12:25 Poikilocytosis 1+ 08/20/18 12:25 Anisocytosis 1+ 08/20/18 12:25 Microcytosis Not Reportable 08/20/18 12:25 Macrocytosis Not Reportable 08/20/18 12:25 Spherocytes Not Reportable 08/20/18 12:25 Pappenheimer Bodies Not Reportable 08/20/18 12:25 Sickle Cells Not Reportable 08/20/18 12:25 Target Cells Not Reportable 08/20/18 12:25 Tear Drop Cells Not Reportable 08/20/18 12:25 Ovalocytes 1+ 08/20/18 12:25 Helmet Cells Not Reportable 08/20/18 12:25 [place] Bodies Not Reportable 08/20/18 12:25 [place] Rings Not Reportable 08/20/18 12:25 [place] Cells Not Reportable 08/20/18 12:25 Bite Cells Not Reportable 08/20/18 12:25 Crenated Cell Not Reportable 08/20/18 12:25 Elliptocytes 1+ 08/20/18 12:25 Acanthocytes (Spur) Few 08/20/18 12:25 Rouleaux Not Reportable 08/20/18 12:25 Hemoglobin C Crystals Not Reportable 08/20/18 12:25 Schistocytes Not Reportable 08/20/18 12:25 [place] parasites Not Reportable 08/20/18 12:25 [place] Bodies Not Reportable 08/20/18 12:25 Hem Pathologist Commnt No 08/20/18 12:25 PT 16.3 Sec. (12.2-14.9) H 08/18/18 18:14 INR 1.23 (0.87-1.13) H 08/18/18 18:14 Sodium 137 mmol/L (137-145) 08/20/18 12:25 Potassium 3.4 mmol/L (3.6-5.0) L 08/20/18 12:25 Chloride 98.9 mmol/L (98-107) 08/20/18 12:25 Carbon Dioxide 27 mmol/L (22-30) 08/20/18 12:25 Anion Gap 15 mmol/L 08/20/18 12:25 BUN 2 mg/dL (7-17) L 08/20/18 12:25 Creatinine 0.5 mg/dL (0.7-1.2) L 08/20/18 12:25 Estimated GFR > 60 ml/min 08/20/18 12:25 BUN/Creatinine Ratio 4 % 08/20/18 12:25 Glucose 113 mg/dL (65-100) H 08/20/18 12:25 Calcium 7.8 mg/dL (8.4-10.2) L 08/20/18 12:25 Total Bilirubin 0.20 mg/dL (0.1-1.2) 08/15/18 20:20 AST 11 units/L (5-40) 08/15/18 20:20 ALT 11 units/L (7-56) 08/15/18 20:20 Alkaline Phosphatase 94 units/L (35-129) 08/15/18 20:20 Total Protein 7.7 g/dL (6.3-8.2) 08/15/18 20:20 Albumin 3.4 g/dL (3.9-5) L 08/15/18 20:20 Albumin/Globulin Ratio 0.8 % 08/15/18 20:20 Lipase 14 units/L (13-60) 08/15/18 20:20 Urine Color Yellow (Yellow) 08/15/18 Unknown Urine Turbidity Clear (Clear) 08/15/18 Unknown Urine pH 6.0 (5.0-7.0) 08/15/18 Unknown Ur Specific [place] 1.027 (1.003-1.030) 08/15/18 Unknown Urine Protein <15 mg/dl mg/dL (Negative) 08/15/18 Unknown Urine Glucose (UA) Neg mg/dL (Negative) 08/15/18 Unknown Urine Ketones Neg mg/dL (Negative) 08/15/18 Unknown Urine Blood Neg (Negative) 08/15/18 Unknown Urine Nitrite Neg (Negative) 08/15/18 Unknown Ur Reducing Substances Not Reportable 08/15/18 Unknown Urine Bilirubin Neg (Negative) 08/15/18 Unknown Urine Ictotest Not Reportable 08/15/18 Unknown Urine Urobilinogen < 2.0 mg/dL (<2.0) 08/15/18 Unknown Ur Leukocyte Esterase Neg (Negative) 08/15/18 Unknown Urine WBC (Auto) 17.0 /HPF (0.0-6.0) H 08/15/18 Unknown Urine RBC (Auto) 12.0 /HPF (0.0-6.0) 08/15/18 Unknown U Epithel Cells (Auto) 4.0 /HPF (0-13.0) 08/15/18 Unknown Urine Mucus Few /HPF 08/15/18 Unknown Urine HCG, Qual Negative (Negative) 08/15/18 21:16
--- NOTE | 2018-08-21 16:10 | Cat Scan Report ---
PROCEDURE: CT ABDOMEN PELVIS W CON TECHNIQUE: The axial images obtained and pelvis following intravenous administration of contrast. Sagittal and c oronal reformatted images reviewed. HISTORY: LLQ pain, TOA suspected s/p drainage COMPARISONS: Abdominal pelvic CT August 12, 2018 FINDINGS: There are now small bilateral pleural effusions. Minimal basilar atelectasis. Liver, spleen and pancreas unremarkable Gallbladder no radiopaque calculus. No biliary dilatation Adrenal glands unremarkable. Kidneys normal enhancement. No calculus. No hydronephrosis. Ureters are nondilated. Aorta normal caliber. Celiac and superior mesenteric arteries are patent. No retroperitoneal adenopat hy. Fibroid uterus reidentified. Left adnexal fluid collection significantly decreased in size. Residual collection measures 3.6 cm. There is a left perirectal fluid collection now present measuring 2.7 cm. This was not present prior study and may represent an additional abscess. Right adnexal fluid-filled structures. Fluid-filled loops of small bowel versus hydrosalpinx. No acute bony abnormality The bladder is compressed No bowel obstruction. No free air. FINDINGS: Left adnexal fluid collection noted prior study is significantly smaller New left perirectal collection suspicious for additional abscess Fluid-filled tubular structures right adnexa. These are more prominent than prior study. Hydrosalpinx versus small bowel. No free air or No bowel obstruction No hydronephrosis IMPRESSION: . This document is electronically signed by Pietro Escoot MD., August 21 2018 04:08:49 PM ET
[2018-08-21] MEDS: REGLAN IV PRN (21:53)
[2018-08-21] MEDS: SENOKOT S PO SCH (21:53)
[2018-08-22 05:32] LABS: Hematocrit 25.8 % (30.3-42.9); Hemoglobin 8.6 gm/dl (10.1-14.3); Mean Corpuscular HGB Conc 34 % (30-34); Mean Corpuscular Volume 83 fl (79-97); Platelet Count 451 K/mm3 (140-440); Red Blood Count 3.12 M/mm3 (3.65-5.03); Red Cell Distribution Width 15.4 % (13.2-15.2)
[2018-08-22 05:46] LABS: BUN/Creatinine Ratio 6; Blood Urea Nitrogen 3 mg/dL (7-17); Calcium 8.1 mg/dL (8.4-10.2); Hemolysis Index 12
[2018-08-22] MEDS: ZOFRAN IV PRN ×2 (06:00→16:09)
[2018-08-22] MEDS: DILAUDID IV PRN ×3 (06:00→21:28)
[2018-08-22] MEDS: ZOSYN/NS 4.5GM/100ML 4.5 GM/100 ML VIAL IV SCH ×3 (06:04→21:27)
[2018-08-22] MEDS: VIBRAMYCIN PO SCH ×2 (06:08→18:19)
--- NOTE | 2018-08-22 06:49 | Cat Scan Report ---
PROCEDURE: CT DRAIN CYST/ABCESS TECHNIQUE: Noncontrast CT drainage of a left adnexal collection HISTORY: left TOA COMPARISONS: 08/12/2018 CT FINDINGS: Garay catheter is present. Left adnexal fluid collection measuring up to 5.7 cm in greatest AP dimens ion is accessed with an anterior approaching needle and a drain was subsequently placed with pigtail formation inside of the cystic lesion, which is shown to be smaller on final images of the exam. No p re or post procedural pneumoperitoneum is identified. There is surgical scarring in the anterior abdo hugo wall. IMPRESSION: CT guidance for drainage of a left adnexal collection, as detailed above. Please see procedural note for additional details and description. This document is electronically signed by Chris Man MD., August 22 2018 06:46:58 AM ET
[2018-08-22] MEDS: PEPCID IV SCH ×2 (09:17→21:27)
--- NOTE | 2018-08-22 09:18 | Progress Note ---
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 She had CT abd/pelvis with iv contrast (see below). She was diagnosis with AGE, UTI and Ovarian cyst. She was sent home on Bactrim, naprosyn, tra madol, and zofran ODT. She came back on 08/15/18 with worsening symptoms including rectal pain. ED physician found external hemorrhoids and told patient they were thrombosed and treated with topical lidocaine. Patient admitted to inpatient due to failing outpatient therapy. * (prior visit) 08/12/18 CT abd/pelvis with IV contrast FINDINGS: Lung bases: Normal. Liver: Normal. Biliary system: Normal. Pancreas: Normal. Spleen: Normal. Kidneys/ureters/bladder: Normal. Adrenal glands: Normal. Aorta: Norm al. Intestines: Within normal limits given no oral contrast was administered. Appendix: Not confidently identified, correlate with surgical history. Pelvic viscera: Multiple hypoechoic uterine masses are identified ranging from 1-4 cm in diameter which presumably represent uterine fibroids. There is a large cyst in the left adnexa measuring 6.5 x 6.6 cm. This presumably represents a large ovarian cyst. There is also a 3.8 x 1.8 cm cyst in the right adnexa. Ascites: None. Adenopathy: None. Musculoskeletal: Normal. IMPRESSION: Uterine fibroid disease. Bilateral adnexal cysts which presumably represent ovarian cysts. Please * US transvaginal/pelvic IMPRESSION: 2 uterine fibroids are identified. There is right adnexal mass measuring 5.6 cm. This could be a hemorrhagic ovarian cyst or endometrioma.. There is no ovarian torsion. The left ovary is not seen. There is no free fluid. * 08/21/18 CT abd/pelvis with IV contrast FINDINGS: Left adnexal fluid collection noted prior study is significantly smaller, New left perirectal collection suspicious for additional abscess, Fluid-filled tubular structures right adnexa. These are more prominent than prior study. Hydrosalpinx versus small bowel. No free air or No bowel obstruction No hydronephrosis -Sepsis most likely from TOA/infected endometrioma s/p IR drainage on 08/19/18, cultures were negative, MERRITT drain removed 08/20/18: continue abx (zosyn and doxcycline), ID, account manager education following. Still with quite of bit LLQ tenderness and appetite still not good; Repeated CT abd/pelvis==>08/21/18 CT abd/pelvis with IV contrast FINDINGS: Left adnexal fluid collection noted prior study is significantly smaller, New left perirectal collection suspicious for additional abscess, Fluid-filled tubular structures right adnexa. These are more prominent than prior study. Hydrosalpinx versus small bowel. No free air or No bowel obs truction No hydronephrosis. I called and discuss the finding with account manager education, Dr. Coronel. -UTI unlikely, see above. -Anemia, drop in HCT: stop lovenox, monitoring cbc in am -Hemorrhoids, no thrombosed external: GI evaluation -DVT prophylaxis: scd for now History Interval history: Patient was seen and examined. Follow-up on current diagnosis of TOA, abd pains much better. Overnight uneventful. Patient denies any chest pain, shortness breath, nausea/vomiting or severe headaches. Imaging, nursing note, chart, labs and old chart reviewed. Discussed with patient. Hospitalist Physical - Physical exam Narrative exam: GEN: ill NAD, Awake, Alert, Orientated HEENT: NCAT, EOMI, PERRL, OP Clear NECK: supple, no adenopathy, no thyromegaly, no JVD CVS/HEART: RRR, normal S1S2, pulses present bilaterally CHEST/LUNGS: CTA B, Symmetrical chest expansion, good air entry bilaterally GI/Abdomen: soft, LLQ tenderness, good bowel sounds, no guarding or rebound /Bladder: + suprapubic tenderness, no CVA or paraspinal tenderness EXT/Skin: no c/c/e, no obvious rash MSK: FROM x 4 Neuro: CN 2-12 grossly intact, no new focal deficits Psych: calm - Constitutional Vitals: Temp Pulse Resp BP Pulse Ox 98.7 F 68 18 107/51 91 08/22/18 06:37 08/22/18 06:37 08/22/18 06:37 08/22/18 06:37 08/22/18 06:37 Results - Labs CBC & Chem 7: 08/22/18 04:41 08/22/18 04:41 Labs: Laboratory Last Values WBC 9.7 K/mm3 (4.5-11.0) 08/22/18 04:41 RBC 3.12 M/mm3 (3.65-5.03) L 08/22/18 04:41 Hgb 8.6 gm/dl (10.1-14.3) L 08/22/18 04:41 Hct 25.8 % (30.3-42.9) L 08/22/18 04:41 MCV 83 fl (79-97) 08/22/18 04:41 MCH 28 pg (28-32) 08/22/18 04:41 MCHC 34 % (30-34) 08/22/18 04:41 RDW 15.4 % (13.2-15.2) H 08/22/18 04:41 Plt Count 451 K/mm3 (140-440) H 08/22/18 04:41 Add Manual Diff Complete 08/20/18 12:25 Total Counted 100 08/20/18 12:25 Seg Neuts % (Manual) 78.0 % (40.0-70.0) H 08/20/18 12:25 Band Neutrophils % 0 % 08/20/18 12:25 Lymphocytes % (Manual) 17.0 % (13.4-35.0) 08/20/18 12:25 Reactive Lymphs % (Man) 0 % 08/20/18 12:25 Monocytes % (Manual) 3.0 % (0.0-7.3) 08/20/18 12:25 Eosinophils % (Manual) 1.0 % (0.0-4.3) 08/20/18 12:25 Basophils % (Manual) 1.0 % (0.0-1.8) 08/20/18 12:25 Metamyelocytes % 0 % 08/20/18 12:25 Myelocytes % 0 % 08/20/18 12:25 Promyelocytes % 0 % 08/20/18 12:25 Blast Cells % 0 % 08/20/18 12:25 Nucleated RBC % Not Reportable 08/20/18 12:25 Seg Neutrophils # Man 9.4 K/mm3 (1.8-7.7) H 08/20/18 12:25 Band Neutrophils # 0.0 K/mm3 08/20/18 12:25 Lymphocytes # (Manual) 2.1 K/mm3 (1.2-5.4) 08/20/18 12:25 Abs React Lymphs (Man) 0.0 K/mm3 08/20/18 12:25 Monocytes # (Manual) 0.4 K/mm3 (0.0-0.8) 08/20/18 12:25 Eosinophils # (Manual) 0.1 K/mm3 (0.0-0.4) 08/20/18 12:25 Basophils # (Manual) 0.1 K/mm3 (0.0-0.1) 08/20/18 12:25 Metamyelocytes # 0.0 K/mm3 08/20/18 12:25 Myelocytes # 0.0 K/mm3 08/20/18 12:25 Promyelocytes # 0.0 K/mm3 08/20/18 12:25 Blast Cells # 0.0 K/mm3 08/20/18 12:25 WBC Morphology Not Reportable 08/20/18 12:25 Hypersegmented Neuts Not Reportable 08/20/18 12:25 Hyposegmented Neuts Not Reportable 08/20/18 12:25 Hypogranular Neuts Not Reportable 08/20/18 12:25 Smudge Cells Not Reportable 08/20/18 12:25 Toxic Granulation Not Reportable 08/20/18 12:25 Toxic Vacuolation Not Reportable 08/20/18 12:25 Dohle Bodies Not Reportable 08/20/18 12:25 Pelger-Huet Anomaly Not Reportable 08/20/18 12:25 Dereck Rods Not Reportable 08/20/18 12:25 Platelet Estimate Consistent w auto 08/20/18 12:25 Clumped Platelets Not Reportable 08/20/18 12:25 Plt Clumps, EDTA Not Reportable 08/20/18 12:25 Large Platelets Not Reportable 08/20/18 12:25 Giant Platelets Not Reportable 08/20/18 12:25 Platelet Satelliting Not Reportable 08/20/18 12:25 Plt Morphology Comment Not Reportable 08/20/18 12:25 RBC Morphology Not Reportable 08/20/18 12:25 Dimorphic RBCs Not Reportable 08/20/18 12:25 Polychromasia Not Reportable 08/20/18 12:25 Hypochromasia Not Reportable 08/20/18 12:25 Poikilocytosis 1+ 08/20/18 12:25 Anisocytosis 1+ 08/20/18 12:25 Microcytosis Not Reportable 08/20/18 12:25 Macrocytosis Not Reportable 08/20/18 12:25 Spherocytes Not Reportable 08/20/18 12:25 Pappenheimer Bodies Not Reportable 08/20/18 12:25 Sickle Cells Not Reportable 08/20/18 12:25 Target Cells Not Reportable 08/20/18 12:25 Tear Drop Cells Not Reportable 08/20/18 12:25 Ovalocytes 1+ 08/20/18 12:25 Helmet Cells Not Reportable 08/20/18 12:25 [place] Bodies Not Reportable 08/20/18 12:25 [place] Rings Not Reportable 08/20/18 12:25 Shawn Cells Not Reportable 08/20/18 12:25 Bite Cells Not Reportable 08/20/18 12:25 Crenated Cell Not Reportable 08/20/18 12:25 Elliptocytes 1+ 08/20/18 12:25 Acanthocytes (Spur) Few 08/20/18 12:25 Rouleaux Not Reportable 08/20/18 12:25 Hemoglobin C Crystals Not Reportable 08/20/18 12:25 Schistocytes Not Reportable 08/20/18 12:25 Malaria parasites Not Reportable 08/20/18 12:25 Peyman Bodies Not Reportable 08/20/18 12:25 Hem Pathologist Commnt No 08/20/18 12:25 PT 16.3 Sec. (12.2-14.9) H 08/18/18 18:14 INR 1.23 (0.87-1.13) H 08/18/18 18:14 Sodium 139 mmol/L (137-145) 08/22/18 04:41 Potassium 3.6 mmol/L (3.6-5.0) 08/22/18 04:41 Chloride 99.0 mmol/L (98-107) 08/22/18 04:41 Carbon Dioxide 28 mmol/L (22-30) 08/22/18 04:41 Anion Gap 16 mmol/L 08/22/18 04:41 BUN 3 mg/dL (7-17) L 08/22/18 04:41 Creatinine 0.5 mg/dL (0.7-1.2) L 08/22/18 04:41 Estimated GFR > 60 ml/min 08/22/18 04:41 BUN/Creatinine Ratio 6 % 08/22/18 04:41 Glucose 96 mg/dL (65-100) 08/22/18 04:41 Calcium 8.1 mg/dL (8.4-10.2) L 08/22/18 04:41 Total Bilirubin 0.20 mg/dL (0.1-1.2) 08/15/18 20:20 AST 11 units/L (5-40) 08/15/18 20:20 ALT 11 units/L (7-56) 08/15/18 20:20 Alkaline Phosphatase 94 units/L (35-129) 08/15/18 20:20 Total Protein 7.7 g/dL (6.3-8.2) 08/15/18 20:20 Albumin 3.4 g/dL (3.9-5) L 08/15/18 20:20 Albumin/Globulin Ratio 0.8 % 08/15/18 20:20 Lipase 14 units/L (13-60) 08/15/18 20:20 Urine Color Yellow (Yellow) 08/15/18 Unknown Urine Turbidity Clear (Clear) 08/15/18 Unknown Urine pH 6.0 (5.0-7.0) 08/15/18 Unknown Ur Specific [place] 1.027 (1.003-1.030) 08/15/18 Unknown Urine Protein <15 mg/dl mg/dL (Negative) 08/15/18 Unknown Urine Glucose (UA) Neg mg/dL (Negative) 08/15/18 Unknown Urine Ketones Neg mg/dL (Negative) 08/15/18 Unknown Urine Blood Neg (Negative) 08/15/18 Unknown Urine Nitrite Neg (Negative) 08/15/18 Unknown Ur Reducing Substances Not Reportable 08/15/18 Unknown Urine Bilirubin Neg (Negative) 08/15/18 Unknown Urine Ictotest Not Reportable 08/15/18 Unknown Urine Urobilinogen < 2.0 mg/dL (<2.0) 08/15/18 Unknown Ur Leukocyte Esterase Neg (Negative) 08/15/18 Unknown Urine WBC (Auto) 17.0 /HPF (0.0-6.0) H 08/15/18 Unknown Urine RBC (Auto) 12.0 /HPF (0.0-6.0) 08/15/18 Unknown U Epithel Cells (Auto) 4.0 /HPF (0-13.0) 08/15/18 Unknown Urine Mucus Few /HPF 08/15/18 Unknown Urine HCG, Qual Negative (Negative) 08/15/18 21:16
[2018-08-22] MEDS: PROCTOSOL-HC PR SCH ×2 (09:21→21:29)
[2018-08-22] MEDS: SODIUM CHLORIDE FLUSH SYRINGE 10 ML IV SCH ×2 (09:22→21:28)
--- NOTE | 2018-08-22 09:42 | Event Note ---
Date: 08/22/18 Initially improved from left adnexal collection drainage. NGTD from surgical culture although did have gram stain positivity suggesting possible vasquez perinfection. At time of drainage I discussed the situation with the patient and pertinent prior history. Patient told me she had myomectomy performed and at that time had endometriomas removed. Had new CT scan demonstrating multiloculated right adnexal collection and left perirectal collection. These collections were present on the CT drainage performed on 08/19/18. Suspect endometriosis implants. Recommend medical endometriosis management.
[2018-08-22] MEDS: REGLAN IV PRN ×2 (11:00→21:27)
[2018-08-22] MEDS: MORPHINE IV PRN (11:00)
[2018-08-22] MEDS: SENOKOT S PO SCH (21:29)
[2018-08-23] MEDS: VIBRAMYCIN PO SCH ×3 (05:28→23:35)
[2018-08-23] MEDS: ZOFRAN IV PRN ×3 (05:33→17:34)
[2018-08-23] MEDS: DILAUDID IV PRN ×4 (05:33→21:03)
[2018-08-23] MEDS: ZOSYN/NS 4.5GM/100ML 4.5 GM/100 ML VIAL IV SCH ×3 (05:34→22:35)
[2018-08-23 06:05] LABS: BUN/Creatinine Ratio 5; Blood Urea Nitrogen 2 mg/dL (7-17); Calcium 8.4 mg/dL (8.4-10.2); Hemolysis Index 4
[2018-08-23 06:09] LABS: Hematocrit 26.2 % (30.3-42.9); Hemoglobin 8.6 gm/dl (10.1-14.3); Mean Corpuscular HGB Conc 33 % (30-34); Mean Corpuscular Volume 83 fl (79-97); Platelet Count 460 K/mm3 (140-440); Red Blood Count 3.17 M/mm3 (3.65-5.03); Red Cell Distribution Width 15.3 % (13.2-15.2)
--- NOTE | 2018-08-23 09:42 | Progress Note ---
Assessment and Plan Cultures: 08/15/2018 blood : No growth 08/19/2018 surgical: Rare GNR, no growth 08/20/2018 stool: negative A/P: 47/F with h/o fibroids admitted with: 1) Low-grade fevers and leukocytosis: Resolved. related to left tuboovarian abscess vs ovarian cyst versus endometrioma on the right side. s/p drainage of 100 mL of pinkish/brown fluid removed from the cystic mass. Surgical culture grew rare GNR, no growth to date. 2) Leucocytosis: Resolved, reactive from above. Continue Zosyn and Doxycyline. 3) Thrombosed hemorroid: GI following. Recent viral gastroenteritis. 4) Diarrhea: resolved. Stool culture negative Recs: - Continue Zosyn, D6 -Continue Doxycycline D5 -Anticipate discharge on Augmentin 875mg PO BID for 7 days [facility] M: [phone] O:[phone] Subjective Date of service: 08/23/18 Principal diagnosis: s/p IR drainage of cyst Interval history: Patient seen and examined. Sitting up in bed, generalized weakness. Complains of nausea, no vomiting. no fevers. Objective - Exam Narrative Exam: Constitutional: Alert, cooperative. No acute distress Head, Ears, Nose: Normocephalic, atraumatic. External ears, nose normal Eyes: Conjunctivae/corneas clear. No icterus. No ptosis. Neck: Supple, no meningeal signs Oral: dentition fair, no thrush Cardiovascular: S1, S2 normal. Respiratory: Good air entry, clear to auscultation bilaterally GI: Soft, lower abdominal tenderness, improved. +nausea Musculoskeletal: No pedal edema, no cyanosis. Skin: No rash or abscess Hem/Lymphatic: No palpable cervical or supraclavicular nodes. No lymphangitis Psych: Mood ok. Affect normal Neurological: Awake, alert, oriented. No gross abnormality - Constitutional Vitals: Vital Signs Temp Pulse Resp BP Pulse Ox 98.1 F 84 18 132/79 96 08/23/18 05:36 08/23/18 05:36 08/23/18 06:03 08/23/18 05:36 08/23/18 05:36 Temperature -Last 24 Hours Temperature 98.1 F Temperature 98.6 F Temperature 98.3 F Temperature 98.6 F - Labs CBC & Chem 7: 08/23/18 04:44 08/23/18 04:44 Labs: Abnormal lab results 08/23/18 08/23/18 Range/Units 04:44 04:44 RBC 3.17 L (3.65-5.03) M/mm3 Hgb 8.6 L (10.1-14.3) gm/dl Hct 26.2 L (30.3-42.9) % MCH 27 L (28-32) pg RDW 15.3 H (13.2-15.2) % Plt Count 460 H (140-440) K/mm3 BUN 2 L (7-17) mg/dL Creatinine 0.4 L (0.7-1.2) mg/dL
[2018-08-23] MEDS: PEPCID IV SCH ×2 (10:26→22:48)
[2018-08-23] MEDS: SODIUM CHLORIDE FLUSH SYRINGE 10 ML IV SCH ×2 (10:27→22:48)
[2018-08-23] MEDS: MYLICON PO PRN ×2 (10:48→18:50)
--- NOTE | 2018-08-23 10:58 | Event Note ---
Date: 08/23/[address] Zhou regarding patient. Ct scan done on 08/21 report and images reviewed. Agree with Dr. Charles's assessment. Patient with hx of endometriosis and likely with endometriomas. Since Ct guided drainage of adnexal collection, the patient has been afebrile and WBC has trended to normal. Would recommend continuing current care. Pt may need medical treatment of endometriosis which I will defer to WIRELESS WATCHER. As per last discussion with Dr. Karley Singer, WIRELESS WATCHER is trying to avoid hysterectomy because patient may still want to have children.
--- NOTE | 2018-08-23 13:31 | Progress Note ---
Assessment and Plan A/P Endometrioma vs TOA s/p drainage: GNR follow with ID recommnedations for abscess continue with WBC following Pain meds and anti nausea meds as needed will continue to follow address endometriosis tx with ocps vs lupron can consider f/u US appt with Dr. Escoto September 06 for definitive treatment Subjective - Subjective Date of service: 08/23/18 Principal diagnosis: s/p IR drainage of cyst Interval history: 47-year-old history of fibroids comes emergency room on 08/12 and was diagnosed with gastroenteritis and urinary tract infection, discharged on Bactrim. She returned to the emergency room today with complaints of fever, persistent nausea, increased pain in her pelvic area and left side pain. Also complaining of a pressure in her rectum Patient reports: appetite normal, voiding normally, pain well controlled, ambulating normally Objective - Vital Signs Latest vital signs: Vital Signs Temp Pulse Resp Resp BP Pulse Ox 08/23/18 11:28 98.2 F 66 18 122/67 100 08/23/18 06:03 18 08/23/18 05:36 98.1 F 84 16 132/79 96 08/23/18 05:33 18 08/22/18 22:06 18 08/22/18 21:58 18 08/22/18 21:28 18 08/22/18 21:10 98.6 F 73 16 124/71 99 08/22/18 17:43 98.3 F 71 12 103/52 98 Intake and Output 08/22/18 08/23/18 08/23/18 23:59 07:59 15:59 Intake Total 1070 500 Balance 1070 500 Intake: IV 100 ZOSYN/NS 4.5GM/100ML 4.5 100 gm In 100 ml @ 200 mls/hr IV Q8HR [facility] Rx#: [id number] Oral 970 500 Other: Total, Intake Amount 850 500 Voiding Method Toilet Toilet # Voids Void 3 1 Weight 90.9 kg Patient Weight 08/23/18 23:59 Weight 90.9 kg - Exam Breasts: Present: deferred Cardiovascular: Present: Regular rate, Normal S1 Lungs: Present: Clear to auscultation, Normal air movement Abdomen: Present: normal appearance, soft, normal bowel sounds. Absent: distention, tenderness, guarding Uterus: Present: normal, firm. Absent: bogginess, tenderness Extremities: Present: normal Deep Tendon Reflex Grade: Normal +2 Incision: Present: normal - Labs Labs: Abnormal lab results 08/23/18 08/23/18 Range/Units 04:44 04:44 RBC 3.17 L (3.65-5.03) M/mm3 Hgb 8.6 L (10.1-14.3) gm/dl Hct 26.2 L (30.3-42.9) % MCH 27 L (28-32) pg RDW 15.3 H (13.2-15.2) % Plt Count 460 H (140-440) K/mm3 BUN 2 L (7-17) mg/dL Creatinine 0.4 L (0.7-1.2) mg/dL
[2018-08-23] MEDS: REGLAN IV PRN ×2 (13:51→20:50)
[2018-08-23] MEDS: PROCTOSOL-HC PR SCH ×2 (13:52→22:49)
--- NOTE | 2018-08-23 16:45 | Progress Note ---
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 She had CT abd/pelvis with iv contrast (see below). She was diagnosis with AGE, UTI and Ovarian cyst. She was sent home on Bactrim, naprosyn, tra madol, and zofran ODT. She came back on 08/15/18 with worsening symptoms including rectal pain. ED physician found external hemorrhoids and told patient they were thrombosed and treated with topical lidocaine. Patient admitted to inpatient due to failing outpatient therapy. * (prior visit) 08/12/18 CT abd/pelvis with IV contrast FINDINGS: Lung bases: Normal. Liver: Normal. Biliary system: Normal. Pancreas: Normal. Spleen: Normal. Kidneys/ureters/bladder: Normal. Adrenal glands: Normal. Aorta: Norm al. Intestines: Within normal limits given no oral contrast was administered. Appendix: Not confidently identified, correlate with surgical history. Pelvic viscera: Multiple hypoechoic uterine masses are identified ranging from 1-4 cm in diameter which presumably represent uterine fibroids. There is a large cyst in the left adnexa measuring 6.5 x 6.6 cm. This presumably represents a large ovarian cyst. There is also a 3.8 x 1.8 cm cyst in the right adnexa. Ascites: None. Adenopathy: None. Musculoskeletal: Normal. IMPRESSION: Uterine fibroid disease. Bilateral adnexal cysts which presumably represent ovarian cysts. Please * US transvaginal/pelvic IMPRESSION: 2 uterine fibroids are identified. There is right adnexal mass measuring 5.6 cm. This could be a hemorrhagic ovarian cyst or endometrioma.. There is no ovarian torsion. The left ovary is not seen. There is no free fluid. * 08/21/18 CT abd/pelvis with IV contrast FINDINGS: Left adnexal fluid collection noted prior study is significantly smaller, New left perirectal collection suspicious for additional abscess, Fluid-filled tubular structures right adnexa. These are more prominent than prior study. Hydrosalpinx versus small bowel. No free air or No bowel obstruction No hydronephrosis -Sepsis most likely from TOA/infected endometrioma s/p IR drainage on 08/19/18, cultures were negative, MERRITT drain removed 08/20/18: continue abx (zosyn and doxcycline), ID, educational therapy teacher following. Still with quite of bit LLQ tenderness and appetite still not good; Repeated CT abd/pelvis==>08/21/18 CT abd/pelvis with IV contrast FINDINGS: Left adnexal fluid collection noted prior study is significantly smaller, New left perirectal collection suspicious for additional abscess, Fluid-filled tubular structures right adnexa. These are more prominent than prior study. Hydrosalpinx versus small bowel. No free air or No bowel obs truction No hydronephrosis. I called and discuss the finding with educational therapy teacher, Dr. Coronel. -UTI unlikely, see above. -Anemia, drop in HCT: stop lovenox, monitoring cbc in am -Hemorrhoids, no thrombosed external: GI evaluation -DVT prophylaxis: scd for now The gram stain of the abdominal aspirate did show Gram negative but nothing grow out due to abx which had already been started. Patient most likely has infected endometrioma. Close to be discharge once she is eating better and with less pains. Then endometrosis treatment will be address as outpatient with either Lupron vs CAROL/BSOO. Patient desire to have kids will be address by virtual customer assistant. The perirectal collection was present on IR drainage and it was small and doesn't need drainage. History Interval history: Patient was seen and examined. Follow-up on current diagnosis of TOA, abd pains much better. Overnight uneventful. Patient denies any chest pain, shortness breath, nausea/vomiting or severe headaches. Imaging, nursing note, chart, labs and old chart reviewed. Discussed with patient. Hospitalist Physical - Physical exam Narrative exam: GEN: ill NAD, Awake, Alert, Orientated HEENT: NCAT, EOMI, PERRL, OP Clear NECK: supple, no adenopathy, no thyromegaly, no JVD CVS/HEART: RRR, normal S1S2, pulses present bilaterally CHEST/LUNGS: CTA B, Symmetrical chest expansion, good air entry bilaterally GI/Abdomen: soft, LLQ tenderness, good bowel sounds, no guarding or rebound /Bladder: + suprapubic tenderness, no CVA or paraspinal tenderness EXT/Skin: no c/c/e, no obvious rash MSK: FROM x 4 Neuro: CN 2-12 grossly intact, no new focal deficits Psych: calm - Constitutional Vitals: Temp Pulse Resp BP Pulse Ox 98.2 F 66 18 122/67 100 08/23/18 11:28 08/23/18 11:28 08/23/18 11:28 08/23/18 11:28 08/23/18 11:28 Results - Labs CBC & Chem 7: 08/23/18 04:44 08/23/18 04:44 Labs: Laboratory Last Values WBC 9.5 K/mm3 (4.5-11.0) 08/23/18 04:44 RBC 3.17 M/mm3 (3.65-5.03) L 08/23/18 04:44 Hgb 8.6 gm/dl (10.1-14.3) L 08/23/18 04:44 Hct 26.2 % (30.3-42.9) L 08/23/18 04:44 MCV 83 fl (79-97) 08/23/18 04:44 MCH 27 pg (28-32) L 08/23/18 04:44 MCHC 33 % (30-34) 08/23/18 04:44 RDW 15.3 % (13.2-15.2) H 08/23/18 04:44 Plt Count 460 K/mm3 (140-440) H 08/23/18 04:44 Add Manual Diff Complete 08/20/18 12:25 Total Counted 100 08/20/18 12:25 Seg Neuts % (Manual) 78.0 % (40.0-70.0) H 08/20/18 12:25 Band Neutrophils % 0 % 08/20/18 12:25 Lymphocytes % (Manual) 17.0 % (13.4-35.0) 08/20/18 12:25 Reactive Lymphs % (Man) 0 % 08/20/18 12:25 Monocytes % (Manual) 3.0 % (0.0-7.3) 08/20/18 12:25 Eosinophils % (Manual) 1.0 % (0.0-4.3) 08/20/18 12:25 Basophils % (Manual) 1.0 % (0.0-1.8) 08/20/18 12:25 Metamyelocytes % 0 % 08/20/18 12:25 Myelocytes % 0 % 08/20/18 12:25 Promyelocytes % 0 % 08/20/18 12:25 Blast Cells % 0 % 08/20/18 12:25 Nucleated RBC % Not Reportable 08/20/18 12:25 Seg Neutrophils # Man 9.4 K/mm3 (1.8-7.7) H 08/20/18 12:25 Band Neutrophils # 0.0 K/mm3 08/20/18 12:25 Lymphocytes # (Manual) 2.1 K/mm3 (1.2-5.4) 08/20/18 12:25 Abs React Lymphs (Man) 0.0 K/mm3 08/20/18 12:25 Monocytes # (Manual) 0.4 K/mm3 (0.0-0.8) 08/20/18 12:25 Eosinophils # (Manual) 0.1 K/mm3 (0.0-0.4) 08/20/18 12:25 Basophils # (Manual) 0.1 K/mm3 (0.0-0.1) 08/20/18 12:25 Metamyelocytes # 0.0 K/mm3 08/20/18 12:25 Myelocytes # 0.0 K/mm3 08/20/18 12:25 Promyelocytes # 0.0 K/mm3 08/20/18 12:25 Blast Cells # 0.0 K/mm3 08/20/18 12:25 WBC Morphology Not Reportable 08/20/18 12:25 Hypersegmented Neuts Not Reportable 08/20/18 12:25 Hyposegmented Neuts Not Reportable 08/20/18 12:25 Hypogranular Neuts Not Reportable 08/20/18 12:25 Smudge Cells Not Reportable 08/20/18 12:25 Toxic Granulation Not Reportable 08/20/18 12:25 Toxic Vacuolation Not Reportable 08/20/18 12:25 Dohle Bodies Not Reportable 08/20/18 12:25 Pelger-Huet Anomaly Not Reportable 08/20/18 12:25 Dereck Rods Not Reportable 08/20/18 12:25 Platelet Estimate Consistent w auto 08/20/18 12:25 Clumped Platelets Not Reportable 08/20/18 12:25 Plt Clumps, EDTA Not Reportable 08/20/18 12:25 Large Platelets Not Reportable 08/20/18 12:25 Giant Platelets Not Reportable 08/20/18 12:25 Platelet Satelliting Not Reportable 08/20/18 12:25 Plt Morphology Comment Not Reportable 08/20/18 12:25 RBC Morphology Not Reportable 08/20/18 12:25 Dimorphic RBCs Not Reportable 08/20/18 12:25 Polychromasia Not Reportable 08/20/18 12:25 Hypochromasia Not Reportable 08/20/18 12:25 Poikilocytosis 1+ 08/20/18 12:25 Anisocytosis 1+ 08/20/18 12:25 Microcytosis Not Reportable 08/20/18 12:25 Macrocytosis Not Reportable 08/20/18 12:25 Spherocytes Not Reportable 08/20/18 12:25 Pappenheimer Bodies Not Reportable 08/20/18 12:25 Sickle Cells Not Reportable 08/20/18 12:25 Target Cells Not Reportable 08/20/18 12:25 Tear Drop Cells Not Reportable 08/20/18 12:25 Ovalocytes 1+ 08/20/18 12:25 Helmet Cells Not Reportable 08/20/18 12:25 [place] Bodies Not Reportable 08/20/18 12:25 [place] Rings Not Reportable 08/20/18 12:25 Shawn Cells Not Reportable 08/20/18 12:25 Bite Cells Not Reportable 08/20/18 12:25 Crenated Cell Not Reportable 08/20/18 12:25 Elliptocytes 1+ 08/20/18 12:25 Acanthocytes (Spur) Few 08/20/18 12:25 Rouleaux Not Reportable 08/20/18 12:25 Hemoglobin C Crystals Not Reportable 08/20/18 12:25 Schistocytes Not Reportable 08/20/18 12:25 Malaria parasites Not Reportable 08/20/18 12:25 [place]yman Bodies Not Reportable 08/20/18 12:25 Hem Pathologist Commnt No 08/20/18 12:25 PT 16.3 Sec. (12.2-14.9) H 08/18/18 18:14 INR 1.23 (0.87-1.13) H 08/18/18 18:14 Sodium 140 mmol/L (137-145) 08/23/18 04:44 Potassium 3.6 mmol/L (3.6-5.0) 08/23/18 04:44 Chloride 100.3 mmol/L (98-107) 08/23/18 04:44 Carbon Dioxide 29 mmol/L (22-30) 08/23/18 04:44 Anion Gap 14 mmol/L 08/23/18 04:44 BUN 2 mg/dL (7-17) L 08/23/18 04:44 Creatinine 0.4 mg/dL (0.7-1.2) L 08/23/18 04:44 Estimated GFR > 60 ml/min 08/23/18 04:44 BUN/Creatinine Ratio 5 % 08/23/18 04:44 Glucose 92 mg/dL (65-100) 08/23/18 04:44 Calcium 8.4 mg/dL (8.4-10.2) 08/23/18 04:44 Total Bilirubin 0.20 mg/dL (0.1-1.2) 08/15/18 20:20 AST 11 units/L (5-40) 08/15/18 20:20 ALT 11 units/L (7-56) 08/15/18 20:20 Alkaline Phosphatase 94 units/L (35-129) 08/15/18 20:20 Total Protein 7.7 g/dL (6.3-8.2) 08/15/18 20:20 Albumin 3.4 g/dL (3.9-5) L 08/15/18 20:20 Albumin/Globulin Ratio 0.8 % 08/15/18 20:20 Lipase 14 units/L (13-60) 08/15/18 20:20 Urine Color Yellow (Yellow) 08/15/18 Unknown Urine Turbidity Clear (Clear) 08/15/18 Unknown Urine pH 6.0 (5.0-7.0) 08/15/18 Unknown Ur Specific [place] 1.027 (1.003-1.030) 08/15/18 Unknown Urine Protein <15 mg/dl mg/dL (Negative) 08/15/18 Unknown Urine Glucose (UA) Neg mg/dL (Negative) 08/15/18 Unknown Urine Ketones Neg mg/dL (Negative) 08/15/18 Unknown Urine Blood Neg (Negative) 08/15/18 Unknown Urine Nitrite Neg (Negative) 08/15/18 Unknown Ur Reducing Substances Not Reportable 08/15/18 Unknown Urine Bilirubin Neg (Negative) 08/15/18 Unknown Urine Ictotest Not Reportable 08/15/18 Unknown Urine Urobilinogen < 2.0 mg/dL (<2.0) 08/15/18 Unknown Ur Leukocyte Esterase Neg (Negative) 08/15/18 Unknown Urine WBC (Auto) 17.0 /HPF (0.0-6.0) H 08/15/18 Unknown Urine RBC (Auto) 12.0 /HPF (0.0-6.0) 08/15/18 Unknown U Epithel Cells (Auto) 4.0 /HPF (0-13.0) 08/15/18 Unknown Urine Mucus Few /HPF 08/15/18 Unknown Urine HCG, Qual Negative (Negative) 08/15/18 21:16 Active Medications - Current Medications Current Medications: Generic Name Dose Route Start Last Admin Trade Name Freq PRN Reason Stop Dose Admin Acetaminophen 650 mg 08/16/18 01:30 08/17/18 02:15 Tylenol PO 650 mg Q4H PRN Administration Pain MILD(1-3)/Fever >100.5/SARKAR Doxycycline Hyclate 100 mg 08/19/18 18:00 08/23/18 10:26 Vibramycin PO 100 mg Q12H BENSON Administration Famotidine 20 mg 08/16/18 22:00 08/23/18 10:26 Pepcid IV 20 mg BID BENSON Administration Hydrocortisone Acetate 1 applic 08/17/18 16:00 08/23/18 13:52 Proctosol-Hc AR 1 applic BID BENSON Administration Hydromorphone HCl 1 mg 08/17/18 20:48 08/23/18 12:15 Dilaudid IV 1 mg Q3H PRN Administration Pain , Severe (7-10) Piperacillin Sod/Tazobactam Sod 4.5 gm in 100 mls @ 200 mls/hr 08/18/18 20:00 08/23/18 13:51 Zosyn/Ns 4.5gm/100ml IV 200 mls/hr Q8HR BENSON Administration Protocol Lidocaine HCl 1 applic 08/17/18 16:32 08/17/18 17:11 Xylocaine Topical 2% 5ml TP 1 applic Q2H PRN Administration RECTAL PAIN Metoclopramide HCl 10 mg 08/16/18 01:30 08/23/18 13:51 Reglan IV 10 mg Q6H PRN Administration Nausea And Vomiting Morphine Sulfate 2 mg 08/16/18 01:30 08/22/18 11:00 Morphine IV 2 mg Q4H PRN Administration Pain, Moderate (4-6) Ondansetron HCl 4 mg 08/16/18 01:30 08/23/18 12:15 Zofran IV 4 mg Q4H PRN Administration Nausea And Vomiting Senna/Docusate Sodium 1 tab 08/16/18 22:00 08/22/18 21:29 Senokot S PO Not Given QHS BENSON Simethicone 80 mg 08/16/18 13:07 08/23/18 10:48 Mylicon PO 80 mg PC PRN Administration Gas pain Sodium Chloride 10 ml 08/16/18 10:00 08/23/18 10:27 Sodium Chloride Flush Syringe 10 Ml IV 10 ml BID BENSON Administration Sodium Chloride 10 ml 08/16/18 01:30 Sodium Chloride Flush Syringe 10 Ml IV PRN PRN LINE FLUSH Nutrition/Malnutrition Assess - Dietary Evaluation Nutrition/Malnutrition Findings: Nutrition Notes Start: 08/23/18 16:23 Freq: Status: Active Protocol: Document 08/23/18 16:23 RM (Rec: 08/23/18 16:29 RM [id number]) Nutrition Notes Need for Assessment generated from: LOS Initial or Follow up Assessment Current Diagnosis Hypertension Other Pertinent Diagnosis Gastroenteritis, UTI, Persistent nausea, Fibroids, Ovarian Cyst Current Diet Regular Labs/Tests Reviewed Pertinent Medications Reviewed Height 5 ft 5 in Weight 90.9 kg [place] Body Weight (kg) 56.81 BMI 33.3 Subjective/Other Information Screened for LOS. Pt stated that her appeite is poor and that she eats 25% of her meals. Admitted to N/V/D today. Burn Absent Trauma Absent #1 Nutrition Diagnosis Inadequate oral intake Etiology gastroenteritis,N/V/D As Evidenced by Signs and Symptoms pt statement that she eats 25% of her meals and admission of N/V today Is patient on ventilator? No Is Patient Ambulatory and/or Out of Bed Yes REE-([facility]-ambulatory/OOB) [ 2014.844 [id number]] Kcal/Kg value to use for calculation 17 Approximate Energy Requirements Using 1545 kcal/Kg Calculation Used for Recommendations Kcal/kg Additional Notes Protein Needs: 89-111kg (1.2-1 .5g/kg, 74kg adjBW) Fluid Needs: 1 ml/kcal Nutrition Intervention Change Diet Order: GI soft, Cardiac Add Supplement/Snack (indicate name/kcal Ensure Enlive Chocolate 1 /protein ) daily Provides kCal: 350 Provides Protein (gm) 20 Goal #1 Meet at least 75% of calorie and protein needs via PO and ONS intakes Anticipated Discharge Needs: Unable to determine at this time Follow-Up By: 08/25/18 Additional Comments Follow for PO and ONS intakes
[2018-08-23] MEDS: SENOKOT S PO SCH (22:49)
[2018-08-24] MEDS: DILAUDID IV PRN ×4 (03:06→22:56)
[2018-08-24 06:43] LABS: Hematocrit 26.8 % (30.3-42.9); Hemoglobin 8.8 gm/dl (10.1-14.3); Mean Corpuscular HGB Conc 33 % (30-34); Mean Corpuscular Volume 82 fl (79-97); Platelet Count 434 K/mm3 (140-440); Red Blood Count 3.27 M/mm3 (3.65-5.03); Red Cell Distribution Width 15.5 % (13.2-15.2)
[2018-08-24] MEDS: ZOSYN/NS 4.5GM/100ML 4.5 GM/100 ML VIAL IV SCH (07:13)
[2018-08-24 07:18] LABS: BUN/Creatinine Ratio 6; Blood Urea Nitrogen 3 mg/dL (7-17); Calcium 8.6 mg/dL (8.4-10.2); Hemolysis Index 0
[2018-08-24] MEDS: REGLAN IV PRN (07:23)
[2018-08-24] MEDS: ZOFRAN IV PRN ×2 (08:55→15:12)
[2018-08-24] MEDS: PEPCID IV SCH ×2 (10:06→22:57)
[2018-08-24] MEDS: SODIUM CHLORIDE FLUSH SYRINGE 10 ML IV SCH ×2 (10:07→22:15)
--- NOTE | 2018-08-24 10:45 | Progress Note ---
Assessment and Plan Cultures: 08/15/2018 blood : No growth 08/19/2018 surgical: Rare GNR, no growth 08/20/2018 stool: negative A/P: 47/F with h/o fibroids admitted with: 1) Low-grade fevers and leukocytosis: Resolved. Likely endometriosis. Cultures without any bacterial growth, GNRs were seen on gram stain. s/p drainage of 100 mL of pinkish/brown fluid removed from the cystic mass. 2) Leucocytosis: Resolved, reactive from above. Continue Zosyn and Doxycyline while inpatient. 3) Thrombosed hemorroid: GI following. Recent viral gastroenteritis. 4) Diarrhea: resolved. Stool culture negative Recs: - discontinue Zosyn, D7 -discontinue Doxycycline D6 -Start Augmentin 875mg PO BID for 7 days -f/u ID office 09-07-18 -ID is signing off [facility] M: [phone] O:[phone] Subjective Date of service: 08/24/18 Principal diagnosis: s/p IR drainage of cyst Interval history: Patient seen and examined. Sitting up in bed, generalized weakness. Continues to complain of nausea, no vomiting. no fevers. Objective - Exam Narrative Exam: Constitutional: Alert, cooperative. No acute distress Head, Ears, Nose: Normocephalic, atraumatic. External ears, nose normal Eyes: Conjunctivae/corneas clear. No icterus. No ptosis. Neck: Supple, no meningeal signs Oral: dentition fair, no thrush Cardiovascular: S1, S2 normal. Respiratory: Good air entry, clear to auscultation bilaterally GI: Soft, lower abdominal tenderness, improved. +nausea Musculoskeletal: No pedal edema, no cyanosis. Skin: No rash or abscess Hem/Lymphatic: No palpable cervical or supraclavicular nodes. No lymphangitis Psych: Mood ok. Affect normal Neurological: Awake, alert, oriented. No gross abnormality - Constitutional Vitals: Vital Signs Temp Pulse Resp BP Pulse Ox 98.0 F 69 16 122/73 98 08/24/18 06:24 08/24/18 06:24 08/24/18 06:24 08/24/18 06:24 08/24/18 06:24 Temperature -Last 24 Hours Temperature 98.0 F Temperature 97.2 F Temperature 98.6 F Temperature 98.2 F - Labs CBC & Chem 7: 08/24/18 05:31 08/24/18 05:31 Labs: Abnormal lab results 08/24/18 08/24/18 Range/Units 05:31 05:31 RBC 3.27 L (3.65-5.03) M/mm3 Hgb 8.8 L (10.1-14.3) gm/dl Hct 26.8 L (30.3-42.9) % MCH 27 L (28-32) pg RDW 15.5 H (13.2-15.2) % BUN 3 L (7-17) mg/dL Creatinine 0.5 L (0.7-1.2) mg/dL
[2018-08-24] MEDS: PROCTOSOL-HC PR SCH ×2 (15:13→22:59)
--- NOTE | 2018-08-24 16:47 | Progress Note ---
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 She had CT abd/pelvis with iv contrast (see below). She was diagnosis with AGE, UTI and Ovarian cyst. She was sent home on Bactrim, naprosyn, tra madol, and zofran ODT. She came back on 08/15/18 with worsening symptoms including rectal pain. ED physician found external hemorrhoids and told patient they were thrombosed and treated with topical lidocaine. Patient admitted to inpatient due to failing outpatient therapy. * (prior visit) 08/12/18 CT abd/pelvis with IV contrast FINDINGS: Lung bases: Normal. Liver: Normal. Biliary system: Normal. Pancreas: Normal. Spleen: Normal. Kidneys/ureters/bladder: Normal. Adrenal glands: Normal. Aorta: Norm al. Intestines: Within normal limits given no oral contrast was administered. Appendix: Not confidently identified, correlate with surgical history. Pelvic viscera: Multiple hypoechoic uterine masses are identified ranging from 1-4 cm in diameter which presumably represent uterine fibroids. There is a large cyst in the left adnexa measuring 6.5 x 6.6 cm. This presumably represents a large ovarian cyst. There is also a 3.8 x 1.8 cm cyst in the right adnexa. Ascites: None. Adenopathy: None. Musculoskeletal: Normal. IMPRESSION: Uterine fibroid disease. Bilateral adnexal cysts which presumably represent ovarian cysts. Please * US transvaginal/pelvic IMPRESSION: 2 uterine fibroids are identified. There is right adnexal mass measuring 5.6 cm. This could be a hemorrhagic ovarian cyst or endometrioma.. There is no ovarian torsion. The left ovary is not seen. There is no free fluid. * 08/21/18 CT abd/pelvis with IV contrast FINDINGS: Left adnexal fluid collection noted prior study is significantly smaller, New left perirectal collection suspicious for additional abscess, Fluid-filled tubular structures right adnexa. These are more prominent than prior study. Hydrosalpinx versus small bowel. No free air or No bowel obstruction No hydronephrosis -Sepsis most likely from TOA/infected endometrioma s/p IR drainage on 08/19/18, cultures were negative, MERRITT drain removed 08/20/18: continue abx (zosyn and doxcycline), ID, high school social studies teacher following. Still with quite of bit LLQ tenderness and appetite still not good; Repeated CT abd/pelvis==>08/21/18 CT abd/pelvis with IV contrast FINDINGS: Left adnexal fluid collection noted prior study is significantly smaller, New left perirectal collection suspicious for additional abscess, Fluid-filled tubular structures right adnexa. These are more prominent than prior study. Hydrosalpinx versus small bowel. No free air or No bowel obs truction No hydronephrosis. I called and discuss the finding with high school social studies teacher, Dr. Coronel. -UTI unlikely, see above. -Anemia, drop in HCT: stop lovenox, monitoring cbc in am -Hemorrhoids, no thrombosed external: GI evaluation -DVT prophylaxis: scd for now The gram stain of the abdominal aspirate did show Gram negative but nothing grow out due to abx which had already been started. Patient most likely has infected endometrioma. Close to be discharge once she is eating better and with less pains. Then endometrosis treatment will be address as outpatient with either Lupron vs CAROL/BSOO. Patient desire to have kids will be address by ship joiner. The perirectal collection was present on IR drainage and it was small and doesn't need drainage. History Interval history: Patient was seen and examined. Follow-up on current diagnosis of TOA, abd pains much better. Overnight uneventful. Patient denies any chest pain, shortness breath, nausea/vomiting or severe headaches. Imaging, nursing note, chart, labs and old chart reviewed. Discussed with patient. Hospitalist Physical - Constitutional Vitals: Temp Pulse Resp BP Pulse Ox 97.8 F 58 L 20 123/59 97 08/24/18 12:01 08/24/18 12:01 08/24/18 12:01 08/24/18 12:01 08/24/18 12:01 Results - Labs CBC & Chem 7: 08/24/18 05:31 08/24/18 05:31 Labs: Laboratory Last Values WBC 8.6 K/mm3 (4.5-11.0) 08/24/18 05:31 RBC 3.27 M/mm3 (3.65-5.03) L 08/24/18 05:31 Hgb 8.8 gm/dl (10.1-14.3) L 08/24/18 05:31 Hct 26.8 % (30.3-42.9) L 08/24/18 05:31 MCV 82 fl (79-97) 08/24/18 05:31 MCH 27 pg (28-32) L 08/24/18 05:31 MCHC 33 % (30-34) 08/24/18 05:31 RDW 15.5 % (13.2-15.2) H 08/24/18 05:31 Plt Count 434 K/mm3 (140-440) 08/24/18 05:31 Add Manual Diff Complete 08/20/18 12:25 Total Counted 100 08/20/18 12:25 Seg Neuts % (Manual) 78.0 % (40.0-70.0) H 08/20/18 12:25 Band Neutrophils % 0 % 08/20/18 12:25 Lymphocytes % (Manual) 17.0 % (13.4-35.0) 08/20/18 12:25 Reactive Lymphs % (Man) 0 % 08/20/18 12:25 Monocytes % (Manual) 3.0 % (0.0-7.3) 08/20/18 12:25 Eosinophils % (Manual) 1.0 % (0.0-4.3) 08/20/18 12:25 Basophils % (Manual) 1.0 % (0.0-1.8) 08/20/18 12:25 Metamyelocytes % 0 % 08/20/18 12:25 Myelocytes % 0 % 08/20/18 12:25 Promyelocytes % 0 % 08/20/18 12:25 Blast Cells % 0 % 08/20/18 12:25 Nucleated RBC % Not Reportable 08/20/18 12:25 Seg Neutrophils # Man 9.4 K/mm3 (1.8-7.7) H 08/20/18 12:25 Band Neutrophils # 0.0 K/mm3 08/20/18 12:25 Lymphocytes # (Manual) 2.1 K/mm3 (1.2-5.4) 08/20/18 12:25 Abs React Lymphs (Man) 0.0 K/mm3 08/20/18 12:25 Monocytes # (Manual) 0.4 K/mm3 (0.0-0.8) 08/20/18 12:25 Eosinophils # (Manual) 0.1 K/mm3 (0.0-0.4) 08/20/18 12:25 Basophils # (Manual) 0.1 K/mm3 (0.0-0.1) 08/20/18 12:25 Metamyelocytes # 0.0 K/mm3 08/20/18 12:25 Myelocytes # 0.0 K/mm3 08/20/18 12:25 Promyelocytes # 0.0 K/mm3 08/20/18 12:25 Blast Cells # 0.0 K/mm3 08/20/18 12:25 WBC Morphology Not Reportable 08/20/18 12:25 Hypersegmented Neuts Not Reportable 08/20/18 12:25 Hyposegmented Neuts Not Reportable 08/20/18 12:25 Hypogranular Neuts Not Reportable 08/20/18 12:25 Smudge Cells Not Reportable 08/20/18 12:25 Toxic Granulation Not Reportable 08/20/18 12:25 Toxic Vacuolation Not Reportable 08/20/18 12:25 Dohle Bodies Not Reportable 08/20/18 12:25 Pelger-Huet Anomaly Not Reportable 08/20/18 12:25 Dereck Rods Not Reportable 08/20/18 12:25 Platelet Estimate Consistent w auto 08/20/18 12:25 Clumped Platelets Not Reportable 08/20/18 12:25 Plt Clumps, EDTA Not Reportable 08/20/18 12:25 Large Platelets Not Reportable 08/20/18 12:25 Giant Platelets Not Reportable 08/20/18 12:25 Platelet Satelliting Not Reportable 08/20/18 12:25 Plt Morphology Comment Not Reportable 08/20/18 12:25 RBC Morphology Not Reportable 08/20/18 12:25 Dimorphic RBCs Not Reportable 08/20/18 12:25 Polychromasia Not Reportable 08/20/18 12:25 Hypochromasia Not Reportable 08/20/18 12:25 Poikilocytosis 1+ 08/20/18 12:25 Anisocytosis 1+ 08/20/18 12:25 Microcytosis Not Reportable 08/20/18 12:25 Macrocytosis Not Reportable 08/20/18 12:25 Spherocytes Not Reportable 08/20/18 12:25 Pappenheimer Bodies Not Reportable 08/20/18 12:25 Sickle Cells Not Reportable 08/20/18 12:25 Target Cells Not Reportable 08/20/18 12:25 Tear Drop Cells Not Reportable 08/20/18 12:25 Ovalocytes 1+ 08/20/18 12:25 Helmet Cells Not Reportable 08/20/18 12:25 [place] Bodies Not Reportable 08/20/18 12:25 [place] Rings Not Reportable 08/20/18 12:25 [place] Cells Not Reportable 08/20/18 12:25 Bite Cells Not Reportable 08/20/18 12:25 Crenated Cell Not Reportable 08/20/18 12:25 Elliptocytes 1+ 08/20/18 12:25 Acanthocytes (Spur) Few 08/20/18 12:25 Rouleaux Not Reportable 08/20/18 12:25 Hemoglobin C Crystals Not Reportable 08/20/18 12:25 Schistocytes Not Reportable 08/20/18 12:25 Malaria parasites Not Reportable 08/20/18 12:25 [place] Bodies Not Reportable 08/20/18 12:25 Hem Pathologist Commnt No 08/20/18 12:25 PT 16.3 Sec. (12.2-14.9) H 08/18/18 18:14 INR 1.23 (0.87-1.13) H 08/18/18 18:14 Sodium 137 mmol/L (137-145) 08/24/18 05:31 Potassium 3.6 mmol/L (3.6-5.0) 08/24/18 05:31 Chloride 98.3 mmol/L (98-107) 08/24/18 05:31 Carbon Dioxide 28 mmol/L (22-30) 08/24/18 05:31 Anion Gap 14 mmol/L 08/24/18 05:31 BUN 3 mg/dL (7-17) L 08/24/18 05:31 Creatinine 0.5 mg/dL (0.7-1.2) L 08/24/18 05:31 Estimated GFR > 60 ml/min 08/24/18 05:31 BUN/Creatinine Ratio 6 % 08/24/18 05:31 Glucose 87 mg/dL (65-100) 08/24/18 05:31 Calcium 8.6 mg/dL (8.4-10.2) 08/24/18 05:31 Total Bilirubin 0.20 mg/dL (0.1-1.2) 08/15/18 20:20 AST 11 units/L (5-40) 08/15/18 20:20 ALT 11 units/L (7-56) 08/15/18 20:20 Alkaline Phosphatase 94 units/L (35-129) 08/15/18 20:20 Total Protein 7.7 g/dL (6.3-8.2) 08/15/18 20:20 Albumin 3.4 g/dL (3.9-5) L 08/15/18 20:20 Albumin/Globulin Ratio 0.8 % 08/15/18 20:20 Lipase 14 units/L (13-60) 08/15/18 20:20 Urine Color Yellow (Yellow) 08/15/18 Unknown Urine Turbidity Clear (Clear) 08/15/18 Unknown Urine pH 6.0 (5.0-7.0) 08/15/18 Unknown Ur Specific [place] 1.027 (1.003-1.030) 08/15/18 Unknown Urine Protein <15 mg/dl mg/dL (Negative) 08/15/18 Unknown Urine Glucose (UA) Neg mg/dL (Negative) 08/15/18 Unknown Urine Ketones Neg mg/dL (Negative) 08/15/18 Unknown Urine Blood Neg (Negative) 08/15/18 Unknown Urine Nitrite Neg (Negative) 08/15/18 Unknown Ur Reducing Substances Not Reportable 08/15/18 Unknown Urine Bilirubin Neg (Negative) 08/15/18 Unknown Urine Ictotest Not Reportable 08/15/18 Unknown Urine Urobilinogen < 2.0 mg/dL (<2.0) 08/15/18 Unknown Ur Leukocyte Esterase Neg (Negative) 08/15/18 Unknown Urine WBC (Auto) 17.0 /HPF (0.0-6.0) H 08/15/18 Unknown Urine RBC (Auto) 12.0 /HPF (0.0-6.0) 08/15/18 Unknown U Epithel Cells (Auto) 4.0 /HPF (0-13.0) 08/15/18 Unknown Urine Mucus Few /HPF 08/15/18 Unknown Urine HCG, Qual Negative (Negative) 08/15/18 21:16 Active Medications - Current Medications Current Medications: Generic Name Dose Route Start Last Admin Trade Name Freq PRN Reason Stop Dose Admin Acetaminophen 650 mg 08/16/18 01:30 08/17/18 02:15 Tylenol PO 650 mg Q4H PRN Administration Pain MILD(1-3)/Fever >100.5/SARKAR Amoxicillin/Clavulanate Potassium 1 each 08/24/18 14:00 Augmentin 875 Mg PO 08/31/18 13:59 Q12HR BENSON Famotidine 20 mg 08/16/18 22:00 08/24/18 10:06 Pepcid IV 20 mg BID BENSON Administration Hydrocortisone Acetate 1 applic 08/17/18 16:00 08/24/18 15:13 Proctosol-Hc ID 1 applic BID BENSON Administration Hydromorphone HCl 1 mg 08/17/18 20:48 08/24/18 10:06 Dilaudid IV 1 mg Q3H PRN Administration Pain , Severe (7-10) Lidocaine HCl 1 applic 08/17/18 16:32 08/17/18 17:11 Xylocaine Topical 2% 5ml TP 1 applic Q2H PRN Administration RECTAL PAIN Morphine Sulfate 2 mg 08/16/18 01:30 08/22/18 11:00 Morphine IV 2 mg Q4H PRN Administration Pain, Moderate (4-6) Ondansetron HCl 4 mg 08/16/18 01:30 08/24/18 15:12 Zofran IV 4 mg Q4H PRN Administration Nausea And Vomiting Polyethylene Glycol 17 gm 08/24/18 17:00 Miralax 3350 PO QDAY BENSON Senna/Docusate Sodium 1 tab 08/16/18 22:00 08/23/18 22:49 Senokot S PO Not Given QHS BENSON Simethicone 80 mg 08/16/18 13:07 08/23/18 18:50 Mylicon PO 80 mg PC PRN Administration Gas pain Sodium Chloride 10 ml 08/16/18 10:00 08/24/18 10:07 Sodium Chloride Flush Syringe 10 Ml IV 10 ml BID BENSON Administration Sodium Chloride 10 ml 08/16/18 01:30 Sodium Chloride Flush Syringe 10 Ml IV PRN PRN LINE FLUSH Nutrition/Malnutrition Assess - Dietary Evaluation Nutrition/Malnutrition Findings: Nutrition Notes Start: 08/23/18 16:23 Freq: Status: Active Protocol: Document 08/23/18 16:23 RM (Rec: 08/23/18 16:29 RM [id number]) Nutrition Notes Need for Assessment generated from: LOS Initial or Follow up Assessment Current Diagnosis Hypertension Other Pertinent Diagnosis Gastroenteritis, UTI, Persistent nausea, Fibroids, Ovarian Cyst Current Diet Regular Labs/Tests Reviewed Pertinent Medications Reviewed Height 5 ft 5 in Weight 90.9 kg [place] Body Weight (kg) 56.81 BMI 33.3 Subjective/Other Information Screened for LOS. Pt stated that her appeite is poor and that she eats 25% of her meals. Admitted to N/V/D today. Burn Absent Trauma Absent #1 Nutrition Diagnosis Inadequate oral intake Etiology gastroenteritis,N/V/D As Evidenced by Signs and Symptoms pt statement that she eats 25% of her meals and admission of N/V today Is patient on ventilator? No Is Patient Ambulatory and/or Out of Bed Yes REE-([facility]-ambulatory/OOB) [ 2014.844 [id number]] Kcal/Kg value to use for calculation 17 Approximate Energy Requirements Using 1545 kcal/Kg Calculation Used for Recommendations Kcal/kg Additional Notes Protein Needs: 89-111kg (1.2-1 .5g/kg, 74kg adjBW) Fluid Needs: 1 ml/kcal Nutrition Intervention Change Diet Order: GI soft, Cardiac Add Supplement/Snack (indicate name/kcal Ensure Enlive Chocolate 1 /protein ) daily Provides kCal: 350 Provides Protein (gm) 20 Goal #1 Meet at least 75% of calorie and protein needs via PO and ONS intakes Anticipated Discharge Needs: Unable to determine at this time Follow-Up By: 08/25/18 Additional Comments Follow for PO and ONS intakes
[2018-08-24] MEDS: REGLAN PO SCH ×2 (17:52→23:13)
[2018-08-24] MEDS: AUGMENTIN 875 MG PO SCH ×2 (19:07→22:58)
[2018-08-24] MEDS: MYLICON PO PRN (19:07)
[2018-08-24] MEDS ORDERED: REGLAN PO SCH (22:00)
[2018-08-24] MEDS: MIRALAX 3350 PO SCH (22:58)
[2018-08-24] MEDS: SENOKOT S PO SCH (22:59)
[2018-08-25] MEDS: REGLAN PO SCH (08:17)
--- NOTE | 2018-08-25 08:23 | Progress Note ---
Assessment and Plan A/P Infectious endometrioma s/p drainage: GNR follow with ID recommnedations for abscess continue with WBC following Pain meds and anti nausea meds as needed will continue to follow address endometriosis tx with ocps vs lupron vs hysterectomy outpatient appt with Dr. Escoto September 06 for definitive treatment Subjective - Subjective Date of service: 08/25/18 Principal diagnosis: s/p IR drainage of cyst Interval history: 47-year-old history of fibroids comes emergency room on 08/12 and was diagnosed with gastroenteritis and urinary tract infection, discharged on Bactrim. She returned to the emergency room today with complaints of fever, persistent nausea, increased pain in her pelvic area and left side pain. Also complaining of a pressure in her rectum Patient reports: appetite normal, voiding normally, pain well controlled, ambulating normally Objective - Vital Signs Latest vital signs: Vital Signs Temp Pulse Resp BP BP Pulse Ox 08/24/18 23:59 61 20 113/62 96 08/24/18 22:56 20 08/24/18 22:00 98.7 F 08/24/18 12:01 97.8 F 58 L 20 123/59 97 Intake and Output 08/24/18 08/25/18 08/25/18 23:59 07:59 15:59 Other: Voiding Method Toilet - Exam Breasts: Present: deferred Cardiovascular: Present: Regular rate, Normal S1 Lungs: Present: Clear to auscultation, Normal air movement Abdomen: Present: normal appearance, soft, normal bowel sounds. Absent: distention, tenderness, guarding Vulva: both: normal Uterus: Present: normal. Absent: tenderness Extremities: Present: normal Deep Tendon Reflex Grade: Normal +2 Incision: Present: normal
[2018-08-25] MEDS: AUGMENTIN 875 MG PO SCH (10:16)
[2018-08-25] MEDS: SODIUM CHLORIDE FLUSH SYRINGE 10 ML IV SCH (10:17)
[2018-08-25] MEDS: PEPCID IV SCH (10:17)
[2018-08-25] MEDS: MORPHINE IV PRN (10:28)
[2018-08-25] MEDS: PROCTOSOL-HC PR SCH (10:36)
[2018-08-25] MEDS: MIRALAX 3350 PO SCH (10:36)
--- NOTE | 2018-08-25 11:22 | Discharge Summary ---
Providers - Providers Date of Admission: 08/16/18 03:14 Date of discharge: 08/25/18 Attending physician: JUANITA VICENTE 08/16/18 14:43 Consult to Physician [CONS] Routine Comment: Consulting Provider: CELESTE SHEPARD Physician Instructions: Reason For Exam: ovarian cyst, fibroids 08/17/18 11:15 Consult to Physician [CONS] Routine Comment: Consulting Provider: DYLAN EDWARDS Physician Instructions: Reason For Exam: thrombosed hemorrhoid 08/17/18 13:55 Consult to Physician [CONS] Routine Comment: Consulting Provider: HOLGER ARCOS Physician Instructions: I notified Reason For Exam: sepsis, ?pyelo 08/18/18 16:45 Consult to Physician [CONS] Routine Comment: Consulting Provider: SITA SWANSON Physician Instructions: Reason For Exam: why severe abd pains 08/18/18 17:12 Consult to Physician [CONS] Routine Comment: Consulting Provider: SITA SWANSON Physician Instructions: I notified Reason For Exam: Severe abd pains Primary care physician: PAINT PREP TECHNICIAN Hospitalization Reason for admission: sepsis from infected endometrioma, UTI, anemia. 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 She had CT abd/pelvis with iv contrast (see below). She was diagnosis with AGE, UTI and Ovarian cyst. She was sent home on Bactrim, naprosyn, tramadol, and zofran. She came back on 08/15/18 with worsening symptoms including rectal pain. ED physician found external hemorrhoids and told patient they were thrombosed and treated with topical lidocaine. Patient admitted to inpatient due to failing outpatient therapy. * (prior visit) 08/12/18 CT abd/pelvis with IV contrast FINDINGS: Lung bases: Normal. Liver: Normal. Biliary system: Normal. Pancreas: Normal. Spleen: Normal. Kidneys/ureters/bladder: Normal. Adrenal glands: Normal. Aorta: Normal. Intestines: Within normal limits given no oral contrast was administered. Appendix: Not confidently identified, correlate with surgical history. Pelvic viscera: Multiple hypoechoic uterine masses are identified ranging from 1-4 cm in diameter which presumably represent uterine fibroids. There is a large cyst in the left adnexa measuring 6.5 x 6.6 cm. This presumably represents a large ovarian cyst. There is also a 3.8 x 1.8 cm cyst in the right adnexa. Ascites: None. Adenopathy: None. Musculoskeletal: Normal. IMPRESSION: Uterine fibroid disease. Bilateral adnexal cysts which presumably represent ovarian cysts. Please * US transvaginal/pelvic IMPRESSION: 2 uterine fibroids are identified. There is right adnexal mass measuring 5.6 cm. This could be a hemorrhagic ovarian cyst or endometrioma.. There is no ovarian torsion. The left ovary is not seen. There is no free fluid. * 08/21/18 CT abd/pelvis with IV contrast FINDINGS: Left adnexal fluid collection noted prior study is significantly smaller, New left perirectal collection suspicious for additional abscess, Fluid-filled tubular structures right adnexa. These are more prominent than prior study. Hydrosalpinx versus small bowel. No free air or No bowel obstruction No hydronephrosis * Patient has not tolerated to regular diet. Abdominal pain is resolved. She is to follow been discharged to follow-up with primary care physician and nuclear technician will address patient's endometriosis. Disposition: DC-01 TO HOME OR SELFCARE Time spent for discharge: 35 min - Discharge Diagnoses (1) Tubo-ovarian abscess Status: Acute (2) Gastroenteritis Status: Acute (3) Ovarian cyst Status: Acute (4) UTI (urinary tract infection) Status: Acute Core Measure Documentation - Palliative Care Palliative Care/ Comfort Measures: Not Applicable - Core Measures Any of the following diagnoses?: none Exam - Physical Exam Narrative exam: Constitutional: Well-nourished well-developed. In no distress Head: Normocephalic atraumatic Eyes: Pupils are equal round and reactive to light Nose: No enlarged turbinates, no septal deviation. Mouth: Moist mucous membranes. Neck: Supple no thyromegaly. No bruit. No JVD Heart: Regular rate and rhythm, S1-S2 normal. No rubs murmurs or gallop Lungs: Clear to auscultation bilaterally. no rales or rhonchi Abdomen: Soft, nontender. Bowel sound are present. Extremities: No edema, no cyanosis, no clubbing. Neuro: Alert oriented Oriented x3. No focal sensory or motor deficit. Skin: No rashes or hyperpigmented spots Musculoskeletal system: No joint pain or swelling Hematological: No petechia or subcutanous hemorrhages. Immunological: No multiple septic spots on the skin Lymphatic: No generalized lymphadenopathy Psychiatry: Euthymic. Calm. - Constitutional Vitals: Temp Pulse Resp BP Pulse Ox 98.7 F 61 20 113/62 96 08/24/18 22:00 08/24/18 23:59 08/24/18 23:59 08/24/18 23:59 08/24/18 23:59 Plan Activity: advance as tolerated Weight Bearing Status: Weight Bear as Tolerated Diet: regular Follow up with: PRIMARY CARE, [Primary Care Provider] - 3-5 Days ROWENA EDWARDS MD [Staff Physician] - 7 Days Prescriptions: Amoxicillin/K Clav Tab [Augmentin 875MG TAB] 1 each PO Q12HR #12 tablet HYDROcodone/ACETAMINOPHEN [Hydrocodone-Acetamin 5-325 mg] 1 each PO Q6HR #18 tablet Polyethylene Glycol 3350 [Miralax 3350] 17 gm PO QDAY #30 powd.pack Hydrocortisone 2.5% [Proctosol-Hc] 1 applic OH BID #60 tube Sennosides/Docusate [Senokot S] 1 tab PO QHS #30 tablet Ondansetron (Nf) [Zofran TAB] 8 mg PO Q8HR PRN #30 tablet PRN Reason: Nausea
[2018-08-25 12:22] VITALS: BP 115/67
== END 2018-08-25 14:10 | disposition home or self-care (01) | DRG 854 ==
LOC: ED 19:49 → EEVIPCON 08-16 03:14 → 3A 08-16 03:14
PROVIDERS: ADMIT Internal Medicine; ATTEND Family Medicine
PROC: 0U9 Female Reproductive System, Drainage (ICD-10-PCS; principal; 2018-08-19)
PROC: 0U9130Z Drainage of Left Ovary with Drainage Device, Percutaneous Approach (ICD-10-PCS; 2018-08-19)
DX: A41.9 Sepsis, unspecified organism (principal); N39.0 Urinary tract infection, site not specified; K64.5 Perianal venous thrombosis; N70.93 Salpingitis and oophoritis, unspecified; N83.202 Unspecified ovarian cyst, left side; K52.9 Noninfective gastroenteritis and colitis, unspecified; N80.8 Other endometriosis; Z82.49 Family history of ischemic heart disease and other diseases of the circulatory system; Z88.8 Allergy status to other drugs, medicaments and biological substances
CPT/HCPCS: 10160; 36415; 74177; 76770; 76830; 76856; 77012; 80048; 80053; 81001; 81025; 83690; 85007; 85025; 85027; 85610; 87040; 87045; 87086; 87116; G0378; C1769; J0692; J0696; J1170; J1200; J1650; J1885; J2250; J2270; J2405; J2543; J2765; J3010; J7030; J7040; Q9967

== ENCOUNTER 2018-09-16 14:37 | Outpatient (CLI) | payer BC ==
--- NOTE | 2018-09-17 12:03 | Ultrasound Report ---
TRANSABDOMINAL AND TRANSVAGINAL PELVIC ULTRASOUND: 09/16/18 14:37:00 CLINICAL: History of tubo ovarian abscesses with drainage. She had a CT drainage of a left adnexal fluid collection on 08/19/18. COMPARISON: Pelvic ultrasound 08/15/[address] abdomen pelvis with contrast 08/21/18 and 08/12/18. FINDINGS: Transabdominal and transvaginal pelvic ultrasound demonstrated an enlarged fibroid uterus measuring approximately 9.2 x 6.4 x 7.3 cm. The largest fibroid is located anterior fundal subserosal to the left of midline and measures 3.9 x 3.2 x 3.2 cm. A posterior body submucosal fibroid measures 2.0 x 2.0 x 1.8 cm. The endometrium is normal and measures 3.7 mm in AP thickness. An enlarged multicystic right ovary measures 6.1 x 4.6 x 5.4 cm and is not significantly changed compared to recent CT and ultrasound exams. The left ovary measures 6.3 x 3.7 x 3.9 cm and contains a 3.2 cm cyst with low level internal echoes. A separate round left adnexal mass with moderate echogenicity measures 3.4 x 2.6 x 3.3 cm. This correlates with a previously identified left adnexal mass that measures 7.4 x 5.7 x 6.5 cm. A complex mass to the left of midline in the cul-de-sac correlates with was described as a perirectal abscess on recent CT. It is smaller and measures 2.0 x 1.7 x 1.4 cm. Minimal free fluid in the pelvis. Normal urinary bladder. IMPRESSION: 1. Enlarged multicystic right ovary without change compared to prior exams. 2. A 3.4 cm left adnexal mass is consistent with a residual abscess which is smaller compared to prior exams. 3. A 2 cm cul-de-sac mass correlates with the previously identified abscess on the CT and it is also smaller. 4. Uterine leiomyomata.
== END 2018-09-16 14:38 | disposition home or self-care (01) ==
LOC: SPVWC 14:37
PROVIDERS: ATTEND Obstetrics & Gynecology
DX: D25.9 Leiomyoma of uterus, unspecified (principal); N83.201 Unspecified ovarian cyst, right side
CPT/HCPCS: 76830; 76856

== ENCOUNTER 2018-12-28 15:54 | Outpatient (CLI) | payer BC ==
--- NOTE | 2018-12-29 08:36 | Mammography Report ---
BILATERAL DIGITAL SCREENING MAMMOGRAM WITH CAD INDICATION: Screening. COMPARISONS: 11/25/2017 and 11/07/2016 FINDINGS: Craniocaudal and mediolateral oblique views of both breasts were obtained using 2-D digital acquisition. In addition to standard review, the examination was analyzed for possible abnormalities using a computer-assisted detection device (iCAD). The breast tissue is heterogeneously dense, which may obscure small masses. A left asymmetry with architectural distortion on the MLO view requires additional imaging. No suspic ious calcifications. The right breast is negative. IMPRESSION: Left asymmetry with architectural distortion requiring additional imaging. Recommend recall for left lateral medial, rolled CC and spot compression MLO views and left breast ultrasound if needed. BI-RADS CATEGORY 0: INCOMPLETE - NEED ADDITIONAL IMAGING EVALUATION AND/OR PRIOR MAMMOGRAMS FOR COMP ARISON Information is entered into a reminder system for a target due date for the next mammogram. The resul ts and recommendations were sent to the patient by mail. Signer Name: Ruben Owen MD Signed: 12/29/2018 8:31 AM Workstation Name: [id number]
== END 2018-12-28 15:55 | disposition home or self-care (01) ==
LOC: SPVWC 15:54
PROVIDERS: ATTEND Obstetrics & Gynecology
DX: Z12.31 Encounter for screening mammogram for malignant neoplasm of breast (principal)
CPT/HCPCS: 77067

== ENCOUNTER 2019-02-08 13:58 | Outpatient (CLI) | payer BC ==
--- NOTE | 2019-02-09 11:52 | Ultrasound Report ---
LEFT BREAST DIAGNOSTIC MAMMOGRAM WITHOUT CAD AND LEFT BREAST ULTRASOUND HISTORY: Recalled for asymmetries. COMPARISON: 12/28/2018 screening mammogram. FINDINGS: Left Breast Mammogram: Digital CC and MLO views demonstrate a heterogeneously dense breast parenchym al pattern which somewhat lessens the sensitivity of the evaluation. Lateral, rolled CC and spot mag nification MLO and CC views were performed. Satisfactory effacement of asymmetry on the lateral and MLO views. A relatively central posterior asy mmetry persists on CC spot and rolled views. Left Breast Ultrasound: Sonographic evaluation of all 4 quadrants and the retroareolar area were per formed. No mass, cyst or shadowing. IMPRESSION A probably benign mammographic asymmetry with a negative ultrasound. Recommend 6 month follow-up left mammogram and ultrasound if needed. BIRADS 3: Probably benign. According to the [employer], yearly mammograms are recommended starting at age 40 and continuing as long as a woman is in good health. Clinical Breast Exams should be part of a period ic health exam-about every 3 years for women in their 20s and 30s and every year for women 40 and ove r. Breast self exam is an option for women starting in their 20s. Any breast change noted on a breast self exam should be reported promptly to the patient's healthcare provider. Breast MRI is recommende d for women with an approximately 20-25% or greater lifetime risk of breast cancer, including women w ith a strong family history of breast or ovarian cancer and women who have been treated for Hodgkin's disease. A negative Mammography report should not discourage follow up or biopsy of a clinically significant f inding and/or abnormality. Dense breast tissue may obscure small neoplasms. Signer Name: Ruben Owen MD Signed: 02/09/2019 11:48 AM Workstation Name: [id number]
== END 2019-02-08 13:59 | disposition home or self-care (01) ==
LOC: SPVWC 13:58
PROVIDERS: ATTEND Obstetrics & Gynecology
DX: R92.8 Other abnormal and inconclusive findings on diagnostic imaging of breast (principal)

== ENCOUNTER 2020-10-24 15:10 | Outpatient (CLI) | payer BC ==
--- NOTE | 2020-10-24 16:13 | Ultrasound Report ---
ULTRASOUND PELVIS COMPLETE ULTRASOUND TRANSVAGINAL INDICATION / CLINICAL INFORMATION: FIBROIDS AND PAIN. TECHNIQUE: Transabdominal and Transvaginal. Duplex Color Doppler used: Yes. COMPARISON: 09/16/2018 FINDINGS: UTERUS: Present. - Appearance (if present): The uterus is enlarged, lobular and heterogeneous echotexture consistent w ith moderate to severe fibroid disease. - Size in cm (if present): 10.0 x 7.5 x 6.3. - Endometrial Complex (if present): No significant abnormality.. Thickness in cm (if measured) = poor ly identified secondary to fibroid disease. 0.2 cm in thickness. - Mass lesions: Multiple fibroids are present. The largest fibroid measures 3.3 x 5.2 x 3.7 cm in the anterior wall. Overall no significant change since the previous exam. - Additional findings: None. RIGHT ADNEXA: The right ovary measures 4.6 x 3.5 x 3.3 cm. A 3.9 cm cyst containing debris is identif ied in the right ovary. Normal color Doppler blood flow. LEFT ADNEXA: The left ovary is not visualized on transabdominal or transvaginal imaging. URINARY BLADDER: No significant abnormality. FREE FLUID: None. ADDITIONAL FINDINGS: None. IMPRESSION: Moderate to severe fibroid disease which appears relatively stable since 2019 exam. Slightly complex 3.9 cm right ovarian cyst. The left ovary is not visualized. Signer Name: Doron Fields Jr, MD Signed: 10/24/2020 4:08 PM Workstation Name: [id number]
== END 2020-10-24 15:11 | disposition home or self-care (01) ==
LOC: SPVWC 15:10
PROVIDERS: ATTEND Obstetrics & Gynecology
DX: D25.9 Leiomyoma of uterus, unspecified (principal); N83.291 Other ovarian cyst, right side
CPT/HCPCS: 76830; 76856

== ENCOUNTER 2020-11-08 13:27 | Outpatient (CLI) | payer BC ==
[2020-11-08 14:36] LABS: Blood Urea Nitrogen 7 mg/dL (7-17)
--- NOTE | 2020-11-08 16:51 | Cat Scan Report ---
CT ABDOMEN AND PELVIS WITH CONTRAST INDICATION / CLINICAL INFORMATION: MAIN. Pelvic and rectal pain. TECHNIQUE: Axial CT images were obtained through the abdomen and pelvis after IV contrast. All CT scans at this location are performed using CT dose reduction for ALARA by means of automated exposure control. COMPARISON: Prior CT abdomen and pelvis 08/21/2018. Pelvic ultrasound dated 10/24/2020. FINDINGS: LOWER CHEST: No significant abnormality. LIVER: No significant abnormality. GALLBLADDER: No significant abnormality. BILE DUCTS: No significant abnormality. PANCREAS: No significant abnormality. SPLEEN: No significant abnormality. ADRENALS: No significant abnormality. RIGHT KIDNEY / URETER: No significant abnormality. LEFT KIDNEY / URETER: Mild left hydroureteronephrosis, likely secondary to distal ureteral compressio n from the uterus. No calcified stone burden. STOMACH / SMALL BOWEL: No significant abnormality. COLON: No significant abnormality. APPENDIX: Not definitively visualized and may be surgically absent. PERITONEUM: No free fluid. No free air. No fluid collection. LYMPH NODES: No significant adenopathy. AORTA / ARTERIES: Mild atherosclerotic calcification without acute abnormality. IVC / VEINS: No significant abnormality. URINARY BLADDER: Partially decompressed secondary to mass effect from the uterus. REPRODUCTIVE ORGANS: Enlarged and significantly heterogeneous uterus measuring approximately 9 x 8 cm . Numerous hypoattenuating focal lesions are noted throughout the uterine parenchyma, some of which a re calcified. ADDITIONAL FINDINGS: None. SKELETAL SYSTEM: No significant abnormality. No aggressive osseous lesions. IMPRESSION: 1. Enlarged and globular uterus with numerous fibroids at different stages of degeneration. Please se e above for details. 2. Mild left hydroureteronephrosis, likely secondary to distal ureteral compression from the uterus. No calcified stone burden is noted. Signer Name: Hernan Gong MD Signed: 11/08/2020 4:47 PM Workstation Name: [id number]
== END 2020-11-08 13:28 | disposition home or self-care (01) ==
LOC: CT 13:27
PROVIDERS: ATTEND Obstetrics & Gynecology
DX: N13.39 Other hydronephrosis (principal); I70.0 Atherosclerosis of aorta; D25.9 Leiomyoma of uterus, unspecified; R22.1 Localized swelling, mass and lump, neck; N85.2 Hypertrophy of uterus
CPT/HCPCS: 36415; 74177; 82565; 84520; Q9967

== ENCOUNTER 2021-04-04 12:47 | Outpatient (CLI) | payer BC ==
--- NOTE | 2021-04-04 15:52 | Ultrasound Report ---
ULTRASOUND PELVIS INDICATION / CLINICAL INFORMATION: PELVIC PAIN. TECHNIQUE: Transabdominal and Transvaginal. Duplex Color Doppler used: Yes. COMPARISON: CT from 11/08/2020. Ultrasound from 10/24/2020. FINDINGS: UTERUS: The uterus measures 12.2 x 7.9 x 9.6 cm. The uterus is heterogeneous with multiple fibroids. Largest is again located anteriorly at the fundus, measuring up to 5.4 cm. The endometrial stripe me asures 0.7 cm. RIGHT ADNEXA: Right ovary is not visualized. No significant ovarian cyst or mass. LEFT ADNEXA: 4.7 cm left ovarian cyst. Normal color Doppler flow. URINARY BLADDER: No significant abnormality. FREE FLUID: None. ADDITIONAL FINDINGS: Incidentally, there is suggestion of bowel wall thickening in the region of the sigmoid colon. IMPRESSION: 1. Uterine fibroid disease, as above. 2. 4.7 cm left ovarian cyst. This is most certainly benign and no routine follow-up is required. 3. Incidentally, there is suggestion of bowel wall thickening in the region of the sigmoid colon. Thi s may be related to decompression/peristalsis. If there is concern for colitis, consider further eval uation with CT. Signer Name: Jono Neal MD Signed: 04/04/2021 3:45 PM Workstation Name: [id number]
--- NOTE | 2021-04-05 15:09 | Mammography Report ---
DIGITAL SCREENING MAMMOGRAM WITH CAD, 04/04/2021 CLINICAL INFORMATION / INDICATION: Routine screening mammography. SCREENING MAMMO TECHNIQUE: Digital bilateral 2D mammography was obtained in the craniocaudal and mediolateral obliqu e projections. This examination was interpreted with the benefit of Computer-Aided Detection analysis . COMPARISON: 12/28/2018 FINDINGS: Breast Density: The breasts are heterogeneously dense, which may obscure small masses. No dominant mass, suspicious calcifications, or architectural distortion in either breast. IMPRESSION: No mammographic evidence of malignancy. Follow up recommendation: Routine yearly BI-RADS Category 1: Negative. A "normal" or negative report should not discourage follow up or biopsy of a clinically significant f inding. A written summary of these findings will be mailed to the patient. The patient will be entered into a mammography reporting system which will generate a reminder letter for the patient's next appointmen t at the appropriate interval. The [employer] recommends yearly mammograms starting at age 40 and continuing as l el as a woman is in good health. Breast MRI is recommended for women with an approximate 20-25% or greater lifetime risk of breast cancer, including women with a strong family history of breast or ova magalys cancer or who have been treated for Hodgkin's disease. Signer Name: Moises Wharton MD Signed: 04/05/2021 3:04 PM Workstation Name: [id number]
== END 2021-04-04 12:48 | disposition home or self-care (01) ==
LOC: SPVWC 12:47
PROVIDERS: ATTEND Obstetrics & Gynecology
DX: Z12.31 Encounter for screening mammogram for malignant neoplasm of breast (principal); R10.2 Pelvic and perineal pain; D25.9 Leiomyoma of uterus, unspecified; N83.292 Other ovarian cyst, left side; K52.9 Noninfective gastroenteritis and colitis, unspecified
CPT/HCPCS: 76830; 76856; 77067

== ENCOUNTER 2021-06-06 12:53 | Outpatient (CLI) | payer BC ==
--- NOTE | 2021-06-06 15:05 | Ultrasound Report ---
ULTRASOUND PELVIS INDICATION: OVARIAN CYST. TECHNIQUE: Transabdominal and Transvaginal. Duplex Color Doppler used: Yes. COMPARISON: Pelvic ultrasound from 04/04/2021 FINDINGS: Uterus: Size: 10.4 x 8.1 x 4.9 cm. Endometrial complex: Normal measuring 0.9 cm. Mass lesions: Generalized heterogeneity is again seen with numerous probable fibroids that measure up to 4.4 cm along the uterine fundus. Additional findings: None. Right Ovary: Size: 3.0 x 2.0 x 1.7 cm Blood flow: Normal. Cyst or mass: None. Left Ovary: Size: 2.2 x 1.5 x 1.1 cm Blood flow: Normal. Cyst or mass: None. Urinary Bladder: Normal. Free Fluid: None. Additional Findings: None. IMPRESSION: 1. Unchanged multiple uterine fibroids. 2. Interval resolution of the left ovarian cyst seen previously. 3. No new significant abnormalities. Signer Name: Malik Bishop MD Signed: 06/06/2021 3:01 PM Workstation Name: [id number]
== END 2021-06-06 12:54 | disposition home or self-care (01) ==
LOC: US 12:53
PROVIDERS: ATTEND Obstetrics & Gynecology
DX: N83.209 Unspecified ovarian cyst, unspecified side (principal); D25.9 Leiomyoma of uterus, unspecified
CPT/HCPCS: 76830; 76856